=== PATIENT | female | born 1955 | race Caucasian/White ===

== ENCOUNTER → 2018-07-29 11:54 | Outpatient (CLI) | payer BC, SELFPAY ==
[2018-07-29 12:23] LABS: Absolute Lymphocyte Count 1.27 X10^3/ul (0.83-4.51); Absolute Neutrophil Count 3.3 X10^3/uL (2.0-7.7); Basophil# 0.03 X10^3/uL; Basophil% 0.5 % (0-1); Eosinophil# 0.08 X10^3/uL; Eosinophils% 1.4 % (0-5); Hematocrit 40.5 % (37-47); Hemoglobin 13.3 g/dl (12.0-15.0); Lymphocyte # 1.27 X10^3/ul (4.0); Lymphocyte % 22.9 % (19-41); Mean Corp Hgb Conc 32.8 g/gl (32-36); Mean Corpuscular Hgb 30.2 pg (27.0-32.0); Mean Corpuscular Volume 91.8 fL (81-99); Mean Platelet Vol. 10.9 fl (6.2-12.0); Monocyte# 0.88 X10^3/uL; Monocyte% 15.9 % (0-10); Neutrophil # 3.28 X10^3/uL (2.7-7.7); Neutrophil % 59.3 % (47-70); Platelet Count 231 K/mm3 (150-450); RBC Distribution Width CV 13.1 % (11.6-14.6); RBC Distribution Width SD 43.2 fl (35.1-43.9); Red Blood Count 4.41 M/mm3 (4.2-5.4); White Blood Count 5.5 K/mm3 (4.4-11.0)
[2018-07-29 12:24] LABS: POSITIVE COUNT NO; POSITIVE DIFFERENTIAL NO; POSITIVE MORPHOLOGY NO
[2018-07-29 12:45] LABS: AST(SGOT) 17 U/L (15-37); Alanine Aminotransfer ALT/SGPT 25 U/L (13-56); Alkaline Phosphatase 56 U/L (45-117)
--- NOTE | 2018-07-29 12:48 | BI_ITS ---
MAMMOGRAPHY - BILATERAL SCREENING REASON FOR EXAM: Female, 63 years old. Routine annual screening examination. PERTINENT HISTORY: Non-contributory. TECHNIQUE: Digital bilateral breast carl (3D mammographic acquisition) in the CC and MLO projections. 2-D mediolateral oblique (MLO) and craniocaudad (CC) views of both breasts were obtained. CAD: Full Field Digital Mammography with Computer Added Detection was performed. COMPARISON: Comparison is made with prior study dated May 20, 2017 and May 15, 2016. FINDINGS: Breast Composition: There are scattered areas of fibroglandular density. There are no dominant masses or suspicious calcifications. No other significant abnormalities are identified. There has been no significant change since the prior study. BI/SCREENING MAMM (CAD), BILAT IMPRESSION: Stable bilateral screening mammogram. Yearly follow-up mammogram recommended. (A) ASSESSMENT CATEGORY: BIRADS Category 1: Negative. A letter regarding these results will be sent to the patient by the facility within 30 days. Approximately 10% of breast cancers are not detected by mammography. A normal mammogram should not delay biopsy of a clinically suspicious abnormality. [id number] Electronically Signed: Honorio Ybarra MD at 14:18 EDT Tel [phone], Service support ,
== END ==
PROVIDERS: Family Provider Nurse Practitioner; PCP Nurse Practitioner; Referring Provider Specialist; Visit Provider Specialist
DX: G35 Multiple sclerosis (principal); Z12.31 Encounter for screening mammogram for malignant neoplasm of breast
CPT/HCPCS: 36415; 77063; 77067; 80076; 85025

== ENCOUNTER → 2018-08-13 12:02 | Outpatient (CLI) | payer BC, SELFPAY ==
--- NOTE | 2018-08-13 12:04 | RAD_ITS ---
STUDY: X-RAY - PELVIS AND RIGHT HIP REASON FOR EXAM: Female, 63 years old. Right hip pain status post fall. TECHNIQUE: Radiological exam, hip, unilateral, with pelvis when performed; 2 or 3 views. COMPARISON: None. FINDINGS: Alignment is anatomic. There is no acute fracture lucency or cortical step-off. There is no periostitis or periosteal reaction. There is no plain film evident soft tissue mass. There is mild, multifocal osteoarthritis. Mineralization otherwise appears unremarkable for age. RAD/HIP, UNI W/ Pelvis 2-3 Views IMPRESSION: There is no plain film evident acute osseous abnormality. Mild multifocal osteoarthritis. Electronically Signed: Young Quick MD at 12:26 EDT , Service support ,
== END ==
PROVIDERS: Family Provider Nurse Practitioner; PCP Nurse Practitioner; Referring Provider Nurse Practitioner Gerontology; Visit Provider Nurse Practitioner Gerontology
DX: M25.551 Pain in right hip (principal)
CPT/HCPCS: 73502

== ENCOUNTER → 2019-01-26 11:58 | Outpatient (CLI) | payer MEDICARE, BC, SELFPAY ==
[2019-01-26 13:54] LABS: AST(SGOT) 19 U/L (15-37); Alanine Aminotransfer ALT/SGPT 23 U/L (13-56); Alkaline Phosphatase 54 U/L (45-117); Bilirubin, Direct 0.13 mg/dL (0.00-0.30); Globulin 2.8 g/dL (2.2-4.2); Protein, Total 6.8 g/dL (6.4-8.2)
[2019-01-26 14:02] LABS: Absolute Neutrophil Count 4.3 X10^3/uL (2.0-7.7); Basophil# 0.02 X10^3/uL; Basophil% 0.3 % (0-1); Eosinophil# 0.06 X10^3/uL; Hematocrit 40.8 % (37-47); Hemoglobin 13.1 g/dl (12.0-15.0); Lymphocyte % 17.6 % (19-41); Mean Corp Hgb Conc 32.1 g/gl (32-36); Mean Corpuscular Volume 93.4 fL (81-99); Mean Platelet Vol. 11.5 fl (6.2-12.0); Monocyte# 0.78 X10^3/uL; Monocyte% 12.5 % (0-10); Neutrophil # 4.28 X10^3/uL (2.7-7.7); Neutrophil % 68.4 % (47-70); Platelet Count 230 K/mm3 (150-450); RBC Distribution Width CV 13.2 % (11.6-14.6); RBC Distribution Width SD 43.9 fl (35.1-43.9); Red Blood Count 4.37 M/mm3 (4.2-5.4); White Blood Count 6.3 K/mm3 (4.4-11.0)
[2019-01-26 14:07] LABS: POSITIVE COUNT NO; POSITIVE DIFFERENTIAL NO; POSITIVE MORPHOLOGY NO
== END ==
PROVIDERS: Family Provider Nurse Practitioner; PCP Nurse Practitioner; Referring Provider Psychiatry & Neurology Neurology; Visit Provider Psychiatry & Neurology Neurology
DX: G35 Multiple sclerosis (principal)
CPT/HCPCS: 36415; 80076; 85025

== ENCOUNTER → 2019-07-21 | Outpatient (CLI) | payer MEDICARE, BC, SELFPAY ==
[2019-07-21 10:42] LABS: Absolute Lymphocyte Count 0.73 X10^3/uL (0.83-4.51); Basophil# 0.04 X10^3/uL; Basophil% 0.6 % (0-1); Eosinophil# 0.07 X10^3/uL; Eosinophils% 1.1 % (0-5); Hematocrit 39.6 % (37-47); Hemoglobin 12.7 g/dL (12.0-15.0); Lymphocyte # 0.73 X10^3/ul (4.0); Mean Corp Hgb Conc 32.1 g/dL (32-36); Mean Corpuscular Hgb 29.7 pg (27.0-32.0); Mean Corpuscular Volume 92.5 fL (81-99); Mean Platelet Vol. 10.6 fl (6.2-12.0); Monocyte# 0.81 X10^3/uL; Monocyte% 12.2 % (0-10); NRBC Flagged by Analyzer 0 % (0-5); Neutrophil # 4.97 X10^3/uL (2.7-7.7); Neutrophil % 74.8 % (47-70); Platelet Count 201 K/mm3 (150-450); RBC Distribution Width CV 12.8 % (11.6-14.6); RBC Distribution Width SD 43.7 fl (35.1-43.9); Red Blood Count 4.28 M/mm3 (4.2-5.4); White Blood Count 6.6 K/mm3 (4.4-11.0)
[2019-07-21 11:03] LABS: AST(SGOT) 18 U/L (15-37); Alanine Aminotransfer ALT/SGPT 20 U/L (13-56); Albumin, Serum 3.8 g/dL (3.2-5.0); Alkaline Phosphatase 53 U/L (45-117); Bilirubin, Direct 0.11 mg/dL (0.00-0.30); Globulin 2.9 g/dL (2.2-4.2); Protein, Total 6.7 g/dL (6.4-8.2)
== END | disposition home or self-care (01) ==
LOC: LAB 09:59
PROVIDERS: Family Provider Nurse Practitioner; PCP Nurse Practitioner; Referring Provider Psychiatry & Neurology Neurology; Visit Provider Psychiatry & Neurology Neurology
DX: G35 Multiple sclerosis (principal)
CPT/HCPCS: 36415; 80076; 85025

== ENCOUNTER → 2019-08-02 | Outpatient (CLI) | payer MEDICARE, BC, SELFPAY ==
--- NOTE | 2019-08-02 12:08 | BI_ITS ---
MAMMOGRAPHY - BILATERAL SCREENING REASON FOR EXAM: Female, 64 years old. Routine annual screening examination. PERTINENT HISTORY: Non-contributory. TECHNIQUE: Digital bilateral breast jewels (3D mammographic acquisition) in the CC and MLO projections. 2-D mediolateral oblique (MLO) and craniocaudad (CC) views of both breasts were obtained. CAD: Full Field Digital Mammography with Computer Added Detection was performed. COMPARISON: Comparison is made with prior study dated July 29, 2018 and May 20, 2017. FINDINGS: Breast Composition: The breasts are heterogeneously dense, which may obscure small masses. There are no dominant masses or suspicious calcifications. No other significant abnormalities are identified. There has been no significant change since the prior study. BI/SCREEN MAMM (CAD) W/JEWELS BILAT IMPRESSION: Stable bilateral screening mammogram. Yearly follow-up mammogram recommended. (A) ASSESSMENT CATEGORY: BIRADS Category 1: Negative. A letter regarding these results will be sent to the patient by the facility within 30 days. Approximately 10% of breast cancers are not detected by mammography. A normal mammogram should not delay biopsy of a clinically suspicious abnormality. [id number] Electronically Signed: Honorio Ybarra, at 13:40 EDT , Service support ,
== END | disposition home or self-care (01) ==
LOC: OPBI 12:06
PROVIDERS: Family Provider Nurse Practitioner; PCP Nurse Practitioner; Referring Provider Specialist; Visit Provider Specialist
DX: Z12.31 Encounter for screening mammogram for malignant neoplasm of breast (principal)
CPT/HCPCS: 77063; 77067

== ENCOUNTER → 2019-08-17 | Outpatient (CLI) | payer MEDICARE, BC, SELFPAY ==
--- NOTE | 2019-08-17 10:23 | BD_ITS ---
STUDY: DUAL ENERGY X-RAY ABSORPTIOMETRY / DXA REASON FOR EXAM: Female, 64 years old. The patient is postmenopausal. No loss of height. TECHNIQUE: Bone Mineral Density (BMD) measurements of lumbar spine and bilateral hips were obtained. COMPARISON: Comparison is made with prior study dated May 15, 2016. FINDINGS: Lumbar Spine (L1-L4): g/cm2 (0.901) / T-score (-2.3) / Z-score (0.9) Findings are suggestive of osteopenia with a high fracture risk. Left Femur Total: g/cm2 (0.623) / T-score (-3.0) / Z-score (-2.0) Left Femoral Neck: g/cm2 (0.666) / T-score (-2.7) / Z-score (-1.3) Right Femur Total: g/cm2 (0.601) / T-score (-3.2) / Z-score (-2.1) Right Femoral Neck: g/cm2 (0.675) / T-score (-2.6) / Z-score (-1.2) The T-Scores on the most recent prior examination were: Lumbar Spine (L1-L4): There has been worsening of bone density since the previous examination. Left Femur Total: which represents a worsening of 7.7%. Right Femur Total: which represents a worsening of 14.8%. BD/Dexa Bone Density Study IMPRESSION: The patient is considered osteoporotic as outlined below according to World [place] Organization (WHO) criteria with a high fracture risk. There has been worsening of bone density since the previous examination. Reference Information: The T-score is the number of standard deviations above or below the standard which is normal for young adults at their peak bone mineral density. The World Health Organization (WHO) interprets the T-scores as follows: Above -1 Normal bone density Between -1 and -2.5 Osteopenia Equal to / or below -2.5 Osteoporosis As a practical clinical guideline, osteopenia may be graded as follows: Mild -1 through -1.5 Moderate -1.6 through -2.0 Severe -2.1 through -2.4 The Z-score is the number of standard deviations above or below age-matched controls. A Z-score of less than -1.5 would be considered abnormal. References: 1. NIH Osteoporosis and Related Bone Diseases http://www.osteo.org 2. International Society for Clinical Densitometry http://www.iscd.org 3. National Osteoporosis Foundation http://www.nof.org Electronically Signed: Honorio Ybarra, at 9:38 EDT , Service support ,
== END | disposition home or self-care (01) ==
LOC: OPBD 10:18
PROVIDERS: Family Provider Nurse Practitioner; PCP Nurse Practitioner; Referring Provider Nurse Practitioner; Visit Provider Nurse Practitioner
DX: Z78.0 Asymptomatic menopausal state (principal)
CPT/HCPCS: 77080

== ENCOUNTER 2020-01-07 19:40 | Inpatient (IN) | payer MEDICARE, BC, SELFPAY ==
[2020-01-07 19:43] VITALS: BP 113/63; PULSE 115; RESP 16; TEMP 37.4; O2SAT 93; BMI 21.0
[2020-01-07 20:21] LABS: Absolute Lymphocyte Count 0.35 X10^3/uL (0.83-4.51); Basophil# 0.01 X10^3/uL; Basophil% 0.1 % (0-1); Hematocrit 40.8 % (37-47); Hemoglobin 13.5 g/dL (12.0-15.0); Lymphocyte # 0.35 X10^3/ul (4.0); Lymphocyte % 3.4 % (19-41); Mean Corp Hgb Conc 33.1 g/dL (32-36); Mean Corpuscular Hgb 29.5 pg (27.0-32.0); Mean Corpuscular Volume 89.3 fL (81-99); Mean Platelet Vol. 10.1 fl (6.2-12.0); Monocyte# 0.85 X10^3/uL; Monocyte% 8.3 % (0-10); NRBC Flagged by Analyzer 0 % (0-5); Neutrophil % 87.9 % (47-70); POSITIVE DIFFERENTIAL YES; POSITIVE MORPHOLOGY YES; Platelet Count 299 K/mm3 (150-450); RBC Distribution Width CV 13.2 % (11.6-14.6); RBC Distribution Width SD 42.7 fl (35.1-43.9); Red Blood Count 4.57 M/mm3 (4.2-5.4); White Blood Count 10.2 K/mm3 (4.4-11.0)
[2020-01-07 20:27] LABS: Differential Indicated SCAN CRITERIA MET
[2020-01-07 20:35] LABS: Anion Gap 4 (5-15); BUN 15 mg/dL (7-18); BUN/Creat Ratio 21.1 RATIO (10-20); Calcium,Total 8.9 mg/dL (8.5-10.1); Chloride 106 mmol/L (98-107); Creatinine, Serum 0.71 mg/dL (0.55-1.02); EST Glomerular Filtration Rate 88 mL/min (>60); Est Glom Filt Rate - Afr Amer 107 mL/min (>60); Estimated Creatinine Clearance 64.14 ml/min; Glucose 129 mg/dL (74-106); Potassium 3.8 mmol/L (3.5-5.1); Sodium Level 137 mmol/L (136-145)
[2020-01-07 20:36] LABS: Internal QC Validated? YES +Cl - CLEAR BKGD; Pregnancy, Serum, hCG Quali. NEGATIVE Negative
[2020-01-07 20:47] LABS: Anisocytosis RARE; Macrocytosis RARE; Platelet Estimate ADEQUATE (ADEQ); Red Cell Morphology N CHROM NORMAL (NORM C&C)
--- NOTE | 2020-01-07 20:48 | CT_ITS ---
We are attempting to reach an attending provider to discuss findings. An addendum with communication details will be sent when the communication is complete. HISTORY: FLU LIKE SYMPTOMS X 2 WEEKS, LETHARGY, FEVER, ABD PAIN. Hx of MS and HLD TECHNIQUE: Helically acquired images were obtained of the abdomen and pelvis following the intravenous administration of ml of Gastrografin Tamp; 100mL Isovue-300 Iodinated contrast. 2D reformats. Oral contrast was administered. A radiation dose optimization technique was used for this scan. COMPARISON: An x-ray of the pelvis from August 13, 2018 FINDINGS: # of images incl. paperwork: [id number] LUNG BASES: Minimal dependent atelectasis CT abdomen: Bones are unremarkable. The gallbladder the gallbladder is somewhat distended. The suprapancreatic portion of the common bile duct I measure at 7 mm in diameter. It remains that diameter within the pancreatic head before narrowing conically to the papilla. No intrahepatic biliary ductal dilatation is perceived. Liver, spleen, pancreas, and adrenal glands, are normal. Tiny hypodense areas within both kidneys statistically represent benign cysts. No hydronephrosis. The aorta is diseased with calcific atherosclerotic plaque, but without aneurysm or dissection. CT pelvis: Pelvic ascites is present. The uterus is not identified, and may have been resected. The appendix is not definitively identified, but may be present on series 2 image 72 with surrounding indurated fat. It is not, however, pathologically thickened. . The bladder is somewhat decompressed. Diverticulosis is present within the descending and sigmoid colon. There is bowel wall thickening and induration to the surrounding fat. CT/Abdomen/Pelvis WITH Contrast IMPRESSION: Pelvic free fluid with indurated fat surrounding the sigmoid colon. This likely represents acute perforated diverticulitis with a small abscess in the left hemipelvis. The possibility of a colonic malignancy having cause erosion through the wall with a small abscess adjacent to the lateral wall of the sigmoid colon in the left hemipelvis is also within the differential. The free fluid and free gas adjacent to the sigmoid colon is not clearly defined as a rim enhancing abscess, however, the area of fluid and gas adjacent to the inflamed sigmoid colon within the left hemipelvis measures 1.8 x 2.9 cm. Individualized dose optimization techniques were used for this CT. at 2310 Reported and signed by: Dangelo Sawant MD Electronically Signed: Dangelo Sawant MD at 23:09 EST Tel , Service support ,
[2020-01-07 21:06] VITALS: RESP 16
[2020-01-07 21:13] LABS: Mucous, Urine 0 SEEN /hpf (<or=2+); Red Blood Cells-Urine 0 SEEN /hpf (0-5); Squamous Epithelial Cells - UA 0 SEEN /hpf (5-10)
[2020-01-07] MEDS: Ondansetron 4 MG/2 ML Vial IV (21:22)
[2020-01-07 21:27] LABS: Color, Urine Yellow (Yellow); Glucose, Dipstick Normal (Normal); Ketone-Dipstick 5 mg/dl (Negative); Leukocyte Esterase-Dipstick 25 /ul (Negative); Nitrite-Dipstick Positive (Negative); Occult Blood-Urine Negative /ul (Negative); Protein-Dipstick Negative (Negative); Urine Bilirubin Dipstick Negative (Negative); Urine Clarity Sl. Cloudy (Clear); Urine Urobilinogen Normal (Normal)
[2020-01-07 21:40] LABS: Bacteria 4+ /hpf (None Seen); White Blood Cells 0-5 SEEN /hpf (0-5)
--- NOTE | 2020-01-07 23:37 | ED.VISSUMM ---
- ER Visit Summary Date of Service: 01/07/20 Chief Complaint: Abdominal pain History of Present Illness: The patient is a 64 F who presents with abdominal pain and nausea that began today. Patient states the pain began rather suddenly. Patient states the pain is sharp. Patient states the pain is diffuse across her abdomen but is worse in the left lower quadrant. Patient is nothing makes it better or worse. Patient admits to nausea but denies any vomiting. Patient admits to some constipation. Patient admits to a fever of 102 at home. Patient denies any hematemesis or coffee-ground emesis. Patient denies any melena or hematochezia. Patient denies any chest pain or shortness of breath. Physical Examination: Vital signs are stable except for mild tachycardia of 115. Patient is afebrile here. Patient is in no acute distress. Oral mucosa is pink and moist. Neck is supple. Trachea is midline. There is no JVD. Heart was regular rate and rhythm. Lungs are clear and equal bilateral. Abdomen is soft. Bowel sounds are normal. There is diffuse tenderness but worse in the left lower quadrant. There is no rebound or guarding noted. Cranial nerves II through XII are intact. There are no focal motor or sensory deficits noted. Test Results: CBC and basic metabolic profile were obtained and were within normal limits. Urinalysis shows positive nitrates and 4+ bacteria but no other signs of urinary tract infection. CT scan of the abdomen pelvis was obtained. There is perforated diverticulitis however there is a possibility of colonic malignancy causing a perforation as well. There is abscess adjacent to the perforation. This was interpreted by the radiologist. Emergency Department Course and Treatment: Patient was given IV fluids, Zofran, and morphine. Patient was advised of her findings. Case was discussed with Dr. Oshea. He will review the CT scan. He was in to evaluate the patient. He will admit the patient to his service. Patient was given a dose of Zosyn here in the emergency department. Patient and family understand and are agreeable with the plan. All questions were answered. Disposition: Admit to hospital Impression: Perforated diverticulitis This note was generated with [employer] dictation software. It may contain incorrect words, spelling, and punctuation that were not noted in review of the chart prior to signing ED Disposition - Plan for ED Patient: Disposition: Acute Care Hospital [facility] Diagnosis: Perforation of sigmoid colon due to diverticulitis Referrals: Laura Mcnamara NP-C [Primary Care Provider] -
[2020-01-08] VITALS (13 sets, daily range): BP systolic 106–137; BP diastolic 56–71; PULSE 81–99; RESP 16–18; TEMP 36.9–37.7; O2SAT 92–99; BMI 21.2; BMI 21.3
[2020-01-08] MEDS: Morphine 4 MG/ML Syringe IV (00:04)
--- NOTE | 2020-01-08 00:04 | HP.PCM_ITS ---
Problem List (1) Perforation of sigmoid colon due to diverticulitis Status: Acute History of Present Illness Date of Admission: 01/08/20 The patient is a 64 year old F who presents with pain since this morning. She reports nausea but no vomiting. Pain is in the lower abdomen. No fevers or chills. She is not passing flatus at this time. Past Medical History Allergies No Known Allergies Allergy (Verified 01/07/20 19:42) Home Medications: Ambulatory Orders Medication Instructions Recorded Rosuvastatin Calcium [Crestor] 0.5 tab PO QODAY 01/07/20 Teriflunomide [Aubagio] 14 mg PO DAILY 01/07/20 Surgical History: hysterectomy Smoking Status: Former smoker - *Family History Maternal History Items: No pertinent history Review of Systems Constitutional: Denies: Anorexia, Fever HEENT: Denies: Difficulty Swallowing Cardiovascular: Denies: Chest Pain Respiratory: Denies: Cough, Shortness of Breath Gastrointestinal: Reports: Abdominal Pain, Nausea. 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 Denies: Joint Tenderness Skin: Denies: Jaundice Neurological: Reports: Focal weakness Hematologic/ Lymphatic: Denies: Anemia VTE Information - Inpt Only VTE Present on Admission: No VTE Mechan Device Prophylaxis: SCD's Patient Problems: Active and Suspected Problems Perforation of sigmoid colon due to diverticulitis (Acute) - Physical Exam Vitals/I&O's: Vital Signs Temp Pulse Resp BP Pulse Ox 99.4 F H 115 H 16 113/63 93 01/07/20 19:43 01/07/20 19:43 01/07/20 21:06 01/07/20 19:43 01/07/20 19:43 Oxygen Delivery Method Room Air Weight: 115 lb Body Mass Index (BMI) 21.0 General: Alert, Oriented x3 Neck: No JVD Lungs: Normal air movement Cardiovascular: Regular Rhythm, Tachycardic Abdomen: Soft, Non-Distended, Tender - Tender in the lower abdomen, no guarding or rebound Extremities: No clubbing Skin: No breakdown Neurological: Cranial nerves II-XII grossly intact Psych/Mental Status: Normal Affect Laboratory Results 01/07/20 20:06: WBC 10.2, RBC 4.57, Hgb 13.5, Hct 40.8, MCV 89.3, MCH 29.5, MCHC 33.1, RDW Std Deviation 42.7, RDW Coeff of Ana Paula 13.2, Plt Count 299, MPV 10.1, Immature Gran % (Auto) 0.300, Neut % (Auto) 87.9 H, Lymph % (Auto) 3.4 L, [place] % (Auto) 8.3, Eos % (Auto) 0.0, Baso % (Auto) 0.1, Absolute Neuts (auto) 9.0 H, Absolute Lymphs (auto) 0.35 L, Nucleated RBC % 0, Differential Comment SEE COMMENT, Platelet Estimate ADEQUATE, RBC Morphology N CHROM, Anisocytosis RARE, Macrocytosis RARE 01/07/20 20:06: Sodium 137, Potassium 3.8, Chloride 106, Carbon Dioxide 27.0, Anion Gap 4 L, BUN 15, Creatinine 0.71, Estim Creat Clear Calc 64.14, Est GFR (MDRD) Af Amer 107, Est GFR (MDRD) Non-Af 88, BUN/Creatinine Ratio 21.1 H, Glucose 129 H, Calcium 8.9 01/07/20 20:06: Serum , Qual NEGATIVE 01/07/20 21:05: Urine Color Yellow, Urine Clarity Sl. Cloudy, Urine pH 6.0, Ur Specific [place] 1.010, Urine Protein Negative, Urine Glucose (UA) Normal, Urine Ketones 5 H, Urine Occult Blood Negative, Urine Nitrite Positive H, Urine Bilirubin Negative, Urine Urobilinogen Normal, Ur Leukocyte Esterase 25 H, Urine RBC 0 SEEN, Urine WBC 0-5 SEEN, Ur Squamous Epith Cells 0 SEEN, Urine Bacteria 4+, Urine Mucus 0 SEEN Clinical Impression(s) from Imaging Studies Abdomen/Pelvis CT 01/07/20 20:48 IMPRESSION: Pelvic free fluid with indurated fat surrounding the sigmoid colon. This likely represents acute perforated diverticulitis with a small abscess in the left hemipelvis. The possibility of a colonic malignancy having cause erosion through the wall with a small abscess adjacent to the lateral wall of the sigmoid colon in the left hemipelvis is also within the differential. The free fluid and free gas adjacent to the sigmoid colon is not clearly defined as a rim enhancing abscess, however, the area of fluid and gas adjacent to the inflamed sigmoid colon within the left hemipelvis measures 1.8 x 2.9 cm. Individualized dose optimization techniques were used for this CT. at 2310 Reported and signed by: Dangelo Sawant MD Electronically Signed: Dangelo Sawant MD at 23:09 EST Tel , Service support , ADDENDUM: 01/07/20 2323 IMPRESSION: Pelvic free fluid with indurated fat surrounding the sigmoid colon. This likely represents acute perforated diverticulitis with a small abscess in the left hemipelvis. The possibility of a colonic malignancy having cause erosion through the wall with a small abscess adjacent to the lateral wall of the sigmoid colon in the left hemipelvis is also within the differential. The free fluid and free gas adjacent to the sigmoid colon is not clearly defined as a rim enhancing abscess, however, the area of fluid and gas adjacent to the inflamed sigmoid colon within the left hemipelvis measures 1.8 x 2.9 cm. Individualized dose optimization techniques were used for this CT. at 2310 Reported and signed by: Dangelo Sawant MD N.B. : The above information has been verbally conveyed by Dangelo Sawant MD to Nelson James DO on 01/07/2020 23:16:14 (ET). Electronically Signed: Dangelo Sawant MD at 23:09 EST Tel , Service support , Current Medications Piperacillin Sod/Tazobactam (Sod 3.375 gm/ Sodium Chloride) 50 mls @ 100 mls/hr IV X1 ONE Stop: 01/08/20 00:14 Assessment/Plan All Active Problems Perforation of sigmoid colon due to diverticulitis (Acute) 64-year-old female with diverticulitis with possible perforation and abscess 1. The patient says she is been having pain today. She reports the pain is lower abdomen. She is having nausea but no vomiting. I reviewed her CT scan with her. She has a normal white count with a left shift. CT scan shows inflammation around the sigmoid colon with possible perforation and small abscess. There is no free air in the abdomen. 2. Currently the patient is not having peritoneal signs. Her vital signs are within normal limits except for mild tachycardia. Her blood pressure is normal and she is oxygenating well. She is not having any guarding or rebound at this time. I discussed surgery versus conservative management with her as well. I discussed that if I took her to surgery she would likely require end colostomy. Given the fact that the abscess is quite small I will try conservative management first. My goal would be to treat her with IV antibiotics and bowel rest initially in order to perform a colonoscopy after resolution as well as an elective laparoscopic sigmoid colectomy in the near future. Her last colonoscopy was about 6 years ago and was normal besides diverticulosis. 3. I will admitted to the floor on IV antibiotics and telemetry. If her pain changes and worsens or her vital signs shifted I will I will take her for emergency sigmoid colectomy with likely colostomy. The patient understands the risks of conservative treatment and would like to attempt this to avoid colostomy or emergency surgery. I believe this is prudent given the fact that she is not having peritoneal signs and her vitals are stable. If there is any deterioration I will repeat a CT scan or take her for emergency surgery. Alejandro Oshea MD Pager: [facility] [address] [place] [address], [address] [place] [address] Office:
[2020-01-08] MEDS: Lactated Ringers 1,000 ML 100 ML IV ×2 (01:26→12:09)
[2020-01-08 06:32] LABS: Absolute Lymphocyte Count 0.93 X10^3/uL (0.83-4.51); Absolute Neutrophil Count 11.5 X10^3/uL (2.0-7.7); Basophil# 0.02 X10^3/uL; Basophil% 0.1 % (0-1); Eosinophil# 0.32 X10^3/uL; Eosinophils% 2.3 % (0-5); Hematocrit 35.3 % (37-47); Hemoglobin 11.4 g/dL (12.0-15.0); Lymphocyte # 0.93 X10^3/ul (4.0); Lymphocyte % 6.6 % (19-41); Mean Corp Hgb Conc 32.3 g/dL (32-36); Mean Corpuscular Hgb 28.7 pg (27.0-32.0); Mean Corpuscular Volume 88.9 fL (81-99); Mean Platelet Vol. 10.7 fl (6.2-12.0); Monocyte# 1.27 X10^3/uL; NRBC Flagged by Analyzer 0 % (0-5); Neutrophil # 11.45 X10^3/uL (2.7-7.7); Neutrophil % 81.6 % (47-70); Platelet Count 267 K/mm3 (150-450); RBC Distribution Width CV 13.3 % (11.6-14.6); RBC Distribution Width SD 43.5 fl (35.1-43.9); Red Blood Count 3.97 M/mm3 (4.2-5.4); White Blood Count 14.1 K/mm3 (4.4-11.0)
[2020-01-08 06:52] LABS: Anion Gap 7 (5-15); BUN 17 mg/dL (7-18); BUN/Creat Ratio 23.2 RATIO (10-20); Calcium,Total 7.8 mg/dL (8.5-10.1); Chloride 104 mmol/L (98-107); Creatinine, Serum 0.73 mg/dL (0.55-1.02); EST Glomerular Filtration Rate 85 mL/min (>60); Est Glom Filt Rate - Afr Amer 103 mL/min (>60); Estimated Creatinine Clearance 62.39 ml/min; Glucose 123 mg/dL (74-106); Potassium 3.6 mmol/L (3.5-5.1); Sodium Level 137 mmol/L (136-145)
[2020-01-08] MEDS: Morphine 2 MG/ML Syringe IV (06:52)
[2020-01-08] MEDS: 0.9% Saline Lock 10 ML Syringe IV (06:59)
--- NOTE | 2020-01-08 07:50 | PN.SURG_ITS ---
Patient Problems: Active and Suspected Problems Perforation of sigmoid colon due to diverticulitis (Acute) Subjective: Patient reports she is improved from yesterday. She only has abdominal pain when moving. She is not passing any flatus yet. No nausea or vomiting. - Physical Exam Vitals/I&O's: Vital Signs Temp Pulse Resp BP Pulse Ox 98.4 F 89 18 106/65 94 01/08/20 02:44 01/08/20 05:19 01/08/20 02:44 01/08/20 02:44 01/08/20 02:44 Oxygen Flow Rate (L/min) 2 Oxygen Delivery Method Room Air Weight: 116 lb 6.465 oz Body Mass Index (BMI) 21.2 Intake and Output for Last 24 Hours 01/06/20 01/07/20 01/08/20 23:59 23:59 23:59 Intake Total 50 / 50 Balance 50 / 50 General: Alert, Oriented x3, Cooperative Lungs: Normal air movement Cardiovascular: Regular rate, Regular Rhythm Abdomen: Soft, Non-Distended, Tender Laboratory Results 01/07/20 20:06: WBC 10.2, RBC 4.57, Hgb 13.5, Hct 40.8, MCV 89.3, MCH 29.5, MCHC 33.1, RDW Std Deviation 42.7, RDW Coeff of Ana Paula 13.2, Plt Count 299, MPV 10.1, Immature Gran % (Auto) 0.300, Neut % (Auto) 87.9 H, Lymph % (Auto) 3.4 L, [place] % (Auto) 8.3, Eos % (Auto) 0.0, Baso % (Auto) 0.1, Absolute Neuts (auto) 9.0 H, Absolute Lymphs (auto) 0.35 L, Nucleated RBC % 0, Differential Comment SEE COMMENT, Platelet Estimate ADEQUATE, RBC Morphology N CHROM, Anisocytosis RARE, Macrocytosis RARE 01/07/20 20:06: Sodium 137, Potassium 3.8, Chloride 106, Carbon Dioxide 27.0, Anion Gap 4 L, BUN 15, Creatinine 0.71, Estim Creat Clear Calc 64.14, Est GFR (MDRD) Af Amer 107, Est GFR (MDRD) Non-Af 88, BUN/Creatinine Ratio 21.1 H, Glucose 129 H, Calcium 8.9 01/07/20 20:06: Serum , Qual NEGATIVE 01/07/20 21:05: Urine Color Yellow, Urine Clarity Sl. Cloudy, Urine pH 6.0, Ur Specific [place] 1.010, Urine Protein Negative, Urine Glucose (UA) Normal, Urine Ketones 5 H, Urine Occult Blood Negative, Urine Nitrite Positive H, Urine Bilirubin Negative, Urine Urobilinogen Normal, Ur Leukocyte Esterase 25 H, Urine RBC 0 SEEN, Urine WBC 0-5 SEEN, Ur Squamous Epith Cells 0 SEEN, Urine Bacteria 4+, Urine Mucus 0 SEEN 01/08/20 05:48: WBC 14.1 H, RBC 3.97 L, Hgb 11.4 L, Hct 35.3 L, MCV 88.9, MCH 28.7, MCHC 32.3, RDW Std Deviation 43.5, RDW Coeff of Ana Paula 13.3, Plt Count 267, MPV 10.7, Immature Gran % (Auto) 0.400, Neut % (Auto) 81.6 H, Lymph % (Auto) 6.6 L, [place] % (Auto) 9.0, Eos % (Auto) 2.3, Baso % (Auto) 0.1, Absolute Neuts (auto) 11.5 H, Absolute Lymphs (auto) 0.93, Nucleated RBC % 0 01/08/20 05:48: Sodium 137, Potassium 3.6, Chloride 104, Carbon Dioxide 26.0, Anion Gap 7, BUN 17, Creatinine 0.73, Estim Creat Clear Calc 62.39, Est GFR ( RD) Af Amer 103, Est GFR (MDRD) Non-Af 85, BUN/Creatinine Ratio 23.2 H, Glucose 123 H, Calcium 7.8 L Current Medications Acetaminophen (Tylenol) 650 mg PO Q4H PRN PRN PRN Reason: Pain (-08/12) or Fever Lactated Ringer's () 1,000 mls @ 100 mls/hr IV .Q10H [facility] Last Admin: 01/08/20 01:26 Dose: 100 mls/hr Documented by: Piperacillin Sod/Tazobactam (Sod 3.375 gm/ Sodium Chloride) 50 mls @ 12.5 mls/hr IV Q8 [facility] Last Admin: 01/08/20 06:49 Dose: 12.5 mls/hr Documented by: Morphine Sulfate () 2 - 4 mg IV Q2H PRN PRN PRN Reason: Pain Score 4-10/10 Last Admin: 01/08/20 06:52 Dose: 2 mg Documented by: Morphine Sulfate () 2 - 4 mg IV Q2H PRN PRN PRN Reason: Pain Score 4-10/10 Ondansetron HCl (Zofran) 4 mg IV Q6H PRN PRN PRN Reason: NAUSEA Sodium Chloride () 10 - 40 ml IV UD PRN PRN Reason: SALINE FLUSH Last Admin: 01/08/20 06:59 Dose: 10 ml Documented by: Medical Necessity - Tobacco Use Smoking Status: Former smoker Tobacco Use: Cigarettes Assessment/Plan All Active Problems Perforation of sigmoid colon due to diverticulitis (Acute) 64-year-old female with perforated diverticulitis with small abscess 1. The patient reports improvement. Her vitals are stable with no signs of sepsis. Her abdomen is soft but tender in the left lower quadrant with palpation. At this time I will continue conservative management with Zosyn and n.p.o. I advised at least another 48 hours n.p.o. status and I will probably recheck a CT scan before starting her on a diet. If there are any changes I will take her to surgery for sigmoid colectomy but she seems to be doing well with conservative treatment. Alejandro Oshea MD Pager: [facility] [address] [place] [address], [address] [place] [address] Office:
[2020-01-08] MEDS: Acetaminophen 325 MG Tablet 650 MG PO (14:32)
--- NOTE | 2020-01-08 15:50 | CM.ED ---
RN CM Assessment Introduced role of RN CM to patient. Patient is alert and able to participate in RN CM Assessment. Care providers, pharmacy, and demographics verified. No family at bedside. Presentation: abd pain Admit Dx: diverticulitis Re-Admit: No Barriers/Issues: None PCP: Anders Specialists: Neuro for her multiple sclerosis. Hers left and she got assigned a new one. Can't remember his name. Located in [place]. Preferred Pharmacy: [facility] Insurance: [facility] [facility] Benefit: Yes. Denies any concerns LNOK: Nehemias LW/HPOA: Yes. DPOA is son Navneet. Agrees to ask him to bring in copy. Living Arrangements: 2 story home with first floor set up. 2 stairs into home with railing. was admitted to hospice about a month ago. ADL?s: she was independent and helped care for her . Transportation: neither her nor drive. depend upon family and friends. Gave the [employer] transportation van information for appts. DME: Mostly for Has walker, w/c and transport chair HHC: None SNF: None Goal: Return Home independent DC PLAN: Home, NN edith Cueva RN, CCM.
[2020-01-08] MEDS: Ondansetron 4 MG/2 ML Vial IV (22:39)
[2020-01-09] VITALS (9 sets, daily range): BP systolic 125–141; BP diastolic 64–75; PULSE 81–94; RESP 16–18; TEMP 36.4–36.8; O2SAT 94–98
[2020-01-09] MEDS: Lactated Ringers 1,000 ML 100 ML IV ×2 (03:47→15:22)
[2020-01-09] MEDS: Acetaminophen 325 MG Tablet 650 MG PO ×2 (03:58→15:23)
[2020-01-09 06:35] LABS: Absolute Lymphocyte Count 0.51 X10^3/uL (0.83-4.51); Absolute Neutrophil Count 14.3 X10^3/uL (2.0-7.7); Basophil# 0.04 X10^3/uL; Basophil% 0.2 % (0-1); Hematocrit 33.7 % (37-47); Hemoglobin 10.5 g/dL (12.0-15.0); Lymphocyte # 0.51 X10^3/ul (4.0); Lymphocyte % 3.1 % (19-41); Mean Corp Hgb Conc 31.2 g/dL (32-36); Mean Corpuscular Hgb 28.1 pg (27.0-32.0); Mean Corpuscular Volume 90.1 fL (81-99); Mean Platelet Vol. 10.6 fl (6.2-12.0); Monocyte# 1.33 X10^3/uL; Monocyte% 8.1 % (0-10); NRBC Flagged by Analyzer 0 % (0-5); Neutrophil # 14.34 X10^3/uL (2.7-7.7); Neutrophil % 87.6 % (47-70); POSITIVE DIFFERENTIAL YES; Platelet Count 252 K/mm3 (150-450); RBC Distribution Width CV 13.2 % (11.6-14.6); RBC Distribution Width SD 43.5 fl (35.1-43.9); Red Blood Count 3.74 M/mm3 (4.2-5.4); White Blood Count 16.4 K/mm3 (4.4-11.0)
[2020-01-09 06:39] LABS: Differential Indicated SCAN CRITERIA MET
[2020-01-09 06:56] LABS: Anion Gap 7 (5-15); BUN 19 mg/dL (7-18); BUN/Creat Ratio 28.5 RATIO (10-20); Calcium,Total 7.9 mg/dL (8.5-10.1); Chloride 105 mmol/L (98-107); Creatinine, Serum 0.67 mg/dL (0.55-1.02); EST Glomerular Filtration Rate 95 mL/min (>60); Est Glom Filt Rate - Afr Amer 115 mL/min (>60); Estimated Creatinine Clearance 67.97 ml/min; Glucose 103 mg/dL (74-106); Potassium 3.2 mmol/L (3.5-5.1); Sodium Level 138 mmol/L (136-145)
--- NOTE | 2020-01-09 07:56 | PN.SURG_ITS ---
Patient Problems: Active and Suspected Problems Perforation of sigmoid colon due to diverticulitis (Acute) Subjective: The patient reports less abdominal pain than even yesterday. She is not having any nausea or vomiting. She is having several bouts of watery diarrhea. - Physical Exam Vitals/I&O's: Vital Signs Temp Pulse Resp BP Pulse Ox 97.8 F 93 16 140/73 H 95 01/09/20 03:54 01/09/20 03:54 01/09/20 03:54 01/09/20 03:54 01/09/20 03:54 Oxygen Flow Rate (L/min) 2 Oxygen Delivery Method Room Air Weight: 116 lb 6.465 oz Body Mass Index (BMI) 21.2 Intake and Output for Last 24 Hours 01/07/20 01/08/20 01/10/20 23:59 23:59 00:59 Intake Total 2384.5 / 2524.5 290 / 290 Balance 2384.5 / 2524.5 290 / 290 General: Alert, Oriented x3 Lungs: Normal air movement Cardiovascular: Regular rate, Regular Rhythm Abdomen: Soft, Non-Distended, Tender - Mild tenderness to deep palpation of the left lower quadrant Laboratory Results 01/09/20 05:28: WBC 16.4 H, RBC 3.74 L, Hgb 10.5 L, Hct 33.7 L, MCV 90.1, MCH 28.1, MCHC 31.2 L, RDW Std Deviation 43.5, RDW Coeff of Ana Paula 13.2, Plt Count 252, MPV 10.6, Immature Gran % (Auto) 1.000 H, Neut % (Auto) 87.6 H, Lymph % (Auto) 3.1 L, [place] % (Auto) 8.1, Eos % (Auto) 0.0, Baso % (Auto) 0.2, Absolute Neuts (auto) 14.3 H, Absolute Lymphs (auto) 0.51 L, Nucleated RBC % 0, Differential Comment 01/09/20 05:28: Sodium 138, Potassium 3.2 L, Chloride 105, Carbon Dioxide 26.0, Anion Gap 7, BUN 19 H, Creatinine 0.67, Estim Creat Clear Calc 67.97, Est GFR (MDRD) Af Amer 115, Est GFR (MDRD) Non-Af 95, BUN/Creatinine Ratio 28.5 H, Glucose 103, Calcium 7.9 L Current Medications Acetaminophen (Tylenol) 650 mg PO Q4H PRN PRN PRN Reason: Pain (1-10/10) or Fever Last Admin: 01/09/20 03:58 Dose: 650 mg Documented by: Enoxaparin Sodium (Lovenox) 40 mg SC DAILY [facility] Lactated Ringer's () 1,000 mls @ 100 mls/hr IV .Q10H [facility] Last Admin: 01/09/20 03:47 Dose: 100 mls/hr Documented by: Piperacillin Sod/Tazobactam (Sod 3.375 gm/ Sodium Chloride) 50 mls @ 12.5 mls/hr IV Q8 [facility] Last Admin: 01/09/20 05:32 Dose: 12.5 mls/hr Documented by: Pantoprazole Sodium 40 mg/ (Sodium Chloride) 110 mls @ 330 mls/hr IV Q24 [facility] Last Infusion: 01/08/20 09:55 Dose: Infused Documented by: Sodium Chloride () 250 mls @ 15 mls/hr IV .[id number] PRN PRN Reason: Saline Flush Sodium Chloride () 250 mls @ 15 mls/hr IV .[id number] PRN PRN Reason: Additional IVPB Infusion Last Infusion: 01/08/20 17:39 Dose: 15 mls/hr Documented by: Morphine Sulfate () 2 - 4 mg IV Q2H PRN PRN PRN Reason: Pain Score 4-10/10 Last Admin: 01/08/20 06:52 Dose: 2 mg Documented by: Morphine Sulfate () 2 - 4 mg IV Q2H PRN PRN PRN Reason: Pain Score 4-10/10 Ondansetron HCl (Zofran) 4 mg IV Q6H PRN PRN PRN Reason: NAUSEA Last Admin: 01/08/20 22:39 Dose: 4 mg Documented by: Sodium Chloride () 10 - 40 ml IV UD PRN PRN Reason: SALINE FLUSH Last Admin: 01/08/20 06:59 Dose: 10 ml Documented by: Medical Necessity - Tobacco Use Smoking Status: Former smoker Tobacco Use: Cigarettes Assessment/Plan All Active Problems Perforation of sigmoid colon due to diverticulitis (Acute) 64-year-old female with perforation of the sigmoid from diverticulitis with small abscess 1. The patient has diverticulitis with a small perforation and abscess. Her pain has been improving day by day but her white count has gone up once more and she is having watery diarrhea. I will check a C. difficile panel. Repeat CT with IV and p.o. contrast in the morning. Continue antibiotics and n.p.o. today. The patient reports improvement in her pain and clinically she is doing better but she has had this new onset diarrhea with increase of white count. Alejandro Oshea MD Pager: [facility] [address] [place] [address], [address] [place] [address] Office:
[2020-01-09] MEDS: Potassium Chloride 10mEq/100mL 10 MEQ/100 ML IV.SOLN. 100 MEQ IV BOLUS (08:36)
[2020-01-09] MEDS: 0.9% Saline Lock 10 ML Syringe IV ×3 (09:23→19:37)
[2020-01-09] MEDS: Potassium Chloride 10mEq/100mL 10 MEQ/100 ML IV.SOLN. 50 MEQ IV BOLUS ×2 (10:59→13:16)
[2020-01-09] MEDS: Enoxaparin 40 MG/0.4 ML Syringe SC (11:12)
--- NOTE | 2020-01-09 16:48 | NURSING ---
This nurse talked to lab and they stated [facility] to run an enteric panal.
[2020-01-09] MEDS: Morphine 4 MG/ML Syringe IV (18:10)
[2020-01-09] MEDS: Morphine 2 MG/ML Syringe IV (18:15)
--- NOTE | 2020-01-09 18:26 | CT_ITS ---
STUDY: CT ABDOMEN AND PELVIS WITHOUT CONTRAST REASON FOR EXAM: Female, 64 years old. Sudden increase in abdominal pain early this evening. Pt admitted to hospital Friday for perforated sigmoid with probable abscess. Pre hysterectomy. RADIATION DOSAGE (If Supplied By Facility): CTDIvol = ( 9.51 ) mGy, DLP = ( 437.78 ) mGycm TECHNIQUE: Transaxial images were obtained from the dome of the diaphragm to the symphysis pubis without oral contrast, and without intravenous contrast. Sagittal and coronal images were reconstructed. Individualized dose optimization techniques were used for this CT. COMPARISON: 01/07/2020 FINDINGS: The visualized lung bases are unremarkable. The visualized portions of the heart are within normal limits. Normal liver. Normal gallbladder and extrahepatic biliary system. Normal spleen. Normal pancreas. Normal bilateral adrenal glands. Normal right kidney. Normal left kidney. Normal visualized stomach. Normal small intestine. There is diverticulosis, with thickening of the colon wall, and pericolonic inflammation changes consistent with acute diverticulitis. No change in the fluid and bubbles of air surrounding the sigmoid colon suggestive of microperforation. Also no change in the small amount of free fluid in the pelvis suggestive of peritonitis. No pneumoperitoneum to suggest macro perforation. The appendix is visualized and appears normal. Normal abdominal aorta. Normal inferior vena cava. Normal retroperitoneum. Normal urinary bladder. Normal abdominal wall. Normal osseous structures. CT/Abdomen/Pelvis W IV Cont ONLY IMPRESSION: No change in sigmoid diverticulitis with microperforation. Electronically Signed: Teddy Herrera MD at 19:45 EDT Tel , Service support ,
--- NOTE | 2020-01-09 18:31 | NURSING ---
Pt stated she got up to go to the bathroom and doubled over in pain. First it was a 8 out of 10 now it is 10 out of 10. Abd slt firm, Bs hypoactive x4 qauds. VS taken, BP 144/68, temp 98.5, Hr 82, Resp 20. Dr. Oshea aware of all the above via cortext and stat CT ordered.
--- NOTE | 2020-01-09 21:12 | PN_ITS ---
Progress Note The patient had sudden onset 10 out of 10 abdominal pain this afternoon. I ordered a CT scan of the abdomen pelvis with IV contrast. She reports that after pain medication the pain was slowly improving and is currently at a 2 out of 10. She is not having any nausea or vomiting but she has been having constant diarrhea today. C. difficile and enteric pathogens were negative. White count has been increasing but she is also positive for E. coli UTI. She has been on Zosyn since admission. Repeat CT scan showed no changes in the diverticulitis with microperforation. Clinical Impression(s) from Imaging Studies Abdomen/Pelvis CT 01/09/20 18:26 IMPRESSION: No change in sigmoid diverticulitis with microperforation. Electronically Signed: Teddy Herrera MD at 19:45 EDT Tel , Service support , I discussed the patient's results with her. I offered her continued conservative management or sigmoid colectomy. I discussed laparoscopic possible open sigmoid colectomy. I informed her that I would try to perform an anastomosis but I would not be able to guarantee that she would not need a colostomy. At this point her white count has been worsening and she has not made any progress over the weekend. She was feeling better this morning but had sudden onset pain. I will recheck labs in the morning but I discussed performing a sigmoid colectomy tomorrow afternoon with her and she is willing to proceed unless there is some sort of change in her lab work and physical exam. She agrees that there is not much progress being made and on the CT scan I see several loops of small bowel which appear thickened and this is likely due to inflammation and irritation. I discussed sigmoid colectomy with the patient in detail. I discussed the risks including but not limited to bleeding, infection, injury to surrounding organs s uch as the ureter bladder or bowels, anastomotic leak, need for stoma. The patient understands the risks and is willing to proceed with sigmoid colectomy tomorrow. I do not the patient urgently needs to go to the operating room as her abdominal exam has improved and her vital signs are stable with no signs of sepsis. Alejandro Oshea MD Pager: [facility] [address] [place] [address], [address] [place] [address] Office:
[2020-01-10] VITALS (7 sets, daily range): BP systolic 119–145; BP diastolic 67–83; PULSE 79–94; RESP 16–18; TEMP 36.4–37.2; O2SAT 93–98
[2020-01-10] MEDS: Lactated Ringers 1,000 ML 100 ML IV ×3 (02:21→22:48)
[2020-01-10 05:50] LABS: Absolute Lymphocyte Count 0.71 X10^3/uL (0.83-4.51); Absolute Neutrophil Count 17.5 X10^3/uL (2.0-7.7); Basophil# 0.04 X10^3/uL; Basophil% 0.2 % (0-1); Eosinophil# 0.01 X10^3/uL; Eosinophils% 0.1 % (0-5); Hematocrit 33.1 % (37-47); Hemoglobin 10.8 g/dL (12.0-15.0); Lymphocyte # 0.71 X10^3/ul (4.0); Lymphocyte % 3.6 % (19-41); Mean Corp Hgb Conc 32.6 g/dL (32-36); Mean Corpuscular Volume 88.7 fL (81-99); Mean Platelet Vol. 10.1 fl (6.2-12.0); Monocyte# 1.42 X10^3/uL; Monocyte% 7.1 % (0-10); NRBC Flagged by Analyzer 0 % (0-5); Neutrophil # 17.54 X10^3/uL (2.7-7.7); Neutrophil % 88.2 % (47-70); Platelet Count 328 K/mm3 (150-450); RBC Distribution Width CV 13.4 % (11.6-14.6); RBC Distribution Width SD 43.8 fl (35.1-43.9); Red Blood Count 3.73 M/mm3 (4.2-5.4); White Blood Count 19.9 K/mm3 (4.4-11.0)
--- NOTE | 2020-01-10 05:55 | EKG12_ITS ---
Test Reason : PRE-OP Blood Pressure : / mmHG Vent. Rate : 089 BPM Atrial Rate : 089 BPM P-R Int : 098 ms QRS Dur : 068 ms QT Int : 348 ms P-R-T Axes : 060 009 064 degrees QTc Int : 423 ms Sinus rhythm with short [place] Low voltage QRS (Limb Leads) Confirmed by SOLA JACKSON, VERONICA ([id number]), mapping editor ADALBERTO GIPSON ([id number]) on 01/12/2020 9:42:17 AM Referred By: JERRY MCGHEE Confirmed By:VERONICA SELBY MD
[2020-01-10 06:26] LABS: Anion Gap 9 (5-15); BUN 20 mg/dL (7-18); BUN/Creat Ratio 37.7 RATIO (10-20); Calcium,Total 8.2 mg/dL (8.5-10.1); Chloride 109 mmol/L (98-107); Creatinine, Serum 0.53 mg/dL (0.55-1.02); EST Glomerular Filtration Rate 123 mL/min (>60); Est Glom Filt Rate - Afr Amer 149 mL/min (>60); Estimated Creatinine Clearance 85.93 ml/min; Glucose 84 mg/dL (74-106); Potassium 3.6 mmol/L (3.5-5.1); Sodium Level 140 mmol/L (136-145)
--- NOTE | 2020-01-10 08:12 | PN.SURG_ITS ---
Patient Problems: Active and Suspected Problems Perforation of sigmoid colon due to diverticulitis (Acute) Subjective: The patient still has some lower abdominal pain. No nausea or vomiting. Continuing diarrhea - Physical Exam Vitals/I&O's: Vital Signs Temp Pulse Resp BP Pulse Ox 98.3 F 84 16 131/67 H 94 01/10/20 08:08 01/10/20 08:08 01/10/20 08:08 01/10/20 08:08 01/10/20 08:08 Oxygen Flow Rate (L/min) 2 Oxygen Delivery Method Room Air Weight: 116 lb 6.465 oz Body Mass Index (BMI) 21.2 Intake and Output for Last 24 Hours 01/08/20 01/09/20 01/10/20 22:59 23:59 23:59 Intake Total 990.75 / 990.75 Balance 990.75 / 990.75 General: Alert, Oriented x3 Neck: No JVD Lungs: Normal air movement Cardiovascular: Regular rate, Regular Rhythm Abdomen: Soft, Non-Distended, Tender Microbiology Past 72 Hours 01/07/20 21:05 Urine, Random Urine Culture - Preliminary Presumptive E. coli 01/09/20 08:05 Stool C. difficile DNA Amplification - Final Laboratory Results 01/10/20 05:30: WBC 19.9 H, RBC 3.73 L, Hgb 10.8 L, Hct 33.1 L, MCV 88.7, MCH 29.0, MCHC 32.6, RDW Std Deviation 43.8, RDW Coeff of Ana Paula 13.4, Plt Count 328, MPV 10.1, Immature Gran % (Auto) 0.800, Neut % (Auto) 88.2 H, Lymph % (Auto) 3.6 L, [place] % (Auto) 7.1, Eos % (Auto) 0.1, Baso % (Auto) 0.2, Absolute Neuts (auto) 17.5 H, Absolute Lymphs (auto) 0.71 L, Nucleated RBC % 0 01/10/20 05:30: Sodium 140, Potassium 3.6, Chloride 109 H, Carbon Dioxide 22.0, Anion Gap 9, BUN 20 H, Creatinine 0.53 L, Estim Creat Clear Calc 85.93, Est GFR (MDRD) Af Amer 149, Est GFR (MDRD) Non-Af 123, BUN/Creatinine Ratio 37.7 H, Glucose 84, Calcium 8.2 L Current Medications Acetaminophen (Tylenol) 650 mg PO Q4H PRN PRN PRN Reason: Pain (1-10/10) or Fever Last Admin: 01/09/20 15:23 Dose: 650 mg Documented by: Enoxaparin Sodium (Lovenox) 40 mg SC DAILY [facility] Last Admin: 01/09/20 11:12 Dose: 40 mg Documented by: Lactated Ringer's () 1,000 mls @ 100 mls/hr IV .Q10H [facility] Last Admin: 01/10/20 02:21 Dose: 100 mls/hr Documented by: Piperacillin Sod/Tazobactam (Sod 3.375 gm/ Sodium Chloride) 50 mls @ 12.5 mls/hr IV Q8 [facility] Last Admin: 01/10/20 05:16 Dose: 12.5 mls/hr Documented by: Pantoprazole Sodium 40 mg/ (Sodium Chloride) 110 mls @ 330 mls/hr IV Q24 [facility] Last Infusion: 01/09/20 11:30 Dose: Infused Documented by: Sodium Chloride () 250 mls @ 15 mls/hr IV .[id number] PRN PRN Reason: Saline Flush Last Infusion: 01/10/20 05:15 Dose: 0 mls/hr Documented by: Sodium Chloride () 250 mls @ 15 mls/hr IV .[id number] PRN PRN Reason: Additional IVPB Infusion Last Infusion: 01/09/20 09:41 Dose: Infused Documented by: Morphine Sulfate () 2 - 4 mg IV Q2H PRN PRN PRN Reason: Pain Score 4-10/10 Last Admin: 01/09/20 18:15 Dose: 2 mg Documented by: Morphine Sulfate () 2 - 4 mg IV Q2H PRN PRN PRN Reason: Pain Score 4-10/10 Last Admin: 01/09/20 18:10 Dose: 2 mg Documented by: Ondansetron HCl (Zofran) 4 mg IV Q6H PRN PRN PRN Reason: NAUSEA Last Admin: 01/08/20 22:39 Dose: 4 mg Documented by: Sodium Chloride () 10 - 40 ml IV UD PRN PRN Reason: SALINE FLUSH Last Admin: 01/09/20 19:37 Dose: 10 ml Documented by: Medical Necessity - Tobacco Use Smoking Status: Former smoker Tobacco Use: Cigarettes Assessment/Plan All Active Problems Perforation of sigmoid colon due to diverticulitis (Acute) 64-year-old female with diverticulitis with abscess 1. The patient had diverticulitis with small abscess over the weekend. She was observed on antibiotics. Yesterday she had a severe episode of pain. CT was repeated and there were no changes. If anything the inflammation seems worse with thickening of some small bowel. Patient has been having diarrhea and the C. difficile was negative. Enteric pathogens are pending. Her white count continues to rise despite the Zosyn. She also had a UTI on admission but I would imagine that the Zosyn would be covering the E. coli. I believe that the increase in white count is due to her sigmoid colitis. I do recommend that she proceed with sigmoid colectomy. I will try to perform a primary anastomosis but I did inform her that a stoma is possible. I went over the surgery again with her today. Plan for laparoscopic possible open sigmoid colectomy this afternoon. I did order blood cultures as well. Alejandro Oshea MD Pager: [facility] [address] [place] [address], [address] [place] [address] Office:
--- NOTE | 2020-01-10 10:19 | PN_ITS ---
Progress Note The patient stool enteric pathogens came back positive for norovirus. This would explain the patient's diarrhea and abdominal pain. Currently the patient is having 2 out of 10 diffuse abdominal pain with no increase in the left lower quadrant. She has no guarding or rebound. Her vitals are stable. It is possible this is the cause of the small bowel thickening on the CT scan as well as the diarrhea. It may also be responsible for her white count. I am going to cancel her surgery for today as she is only having 2 out of 10 pain. I will give her sips and ice chips and discuss with ID physician. Alejandro Oshea MD Pager: [facility] [address] [place] [address], [address] [place] [address] Office: [facility] Vital Signs/Narrative: Vital Signs Temp Pulse Resp BP Pulse Ox 01/10/20 08:08 98.3 F 84 16 131/67 H 94
--- NOTE | 2020-01-10 15:17 | PCM.HP.ID ---
Reason for Consult: diverticulitis Consulted by: Dr. Oshea History of Present Illness: The patient is a 64 year old F who presented 3/ with sudden onset lower abd pain, some chills, not feeling well. Started having diarrhea, going about 6 times so far today. No blood in stool. Admitted here after CT showed sigmoid diverticulitis and perforation with fluid collection. Has been on zosyn, abd pain improved. No fever since admission. No sick contacts, no recent travel, lives at home. Full ROS performed and neg except as noted above. - Medical History Surgical History: reviewed Allergies/Adverse Reactions: Allergies No Known Allergies Allergy (Verified 01/07/20 19:42) Home Medications: Ambulatory Orders Medication Instructions Recorded Rosuvastatin Calcium [Crestor] 2.5 mg PO QODAY 01/07/20 Teriflunomide [Aubagio] 14 mg PO DAILY 01/07/20 Calcium Citrate/Vitamin D2 1 ea PO DAILY 01/08/20 [Quan-Citrate Plus Vitamin D Tab] Multivitamin [Multiple Vitamins] 1 ea PO DAILY 01/08/20 - Social History SMOKING STATUS:: Former smoker Vital Signs Temp Pulse Resp BP Pulse Ox 98.3 F 91 16 131/67 H 94 01/10/20 08:08 01/10/20 08:27 01/10/20 08:08 01/10/20 08:08 01/10/20 08:08 Oxygen Flow Rate (L/min) 2 Oxygen Delivery Method Room Air Weight: 52.8 kg Body Mass Index (BMI) 21.2 Microbiology Past 72 Hours 01/09/20 08:05 Enteric Bacteriology - Final Stool Norovirus 01/07/20 21:05 Urine Culture - Final Urine, Random Presumptive E. coli 01/09/20 08:05 C. difficile DNA Amplification - Final Stool Laboratory Tests Past 24 Hrs 01/10/20 01/10/20 05:30 05:30 WBC 19.9 H RBC 3.73 L Hgb 10.8 L Hct 33.1 L MCV 88.7 MCH 29.0 MCHC 32.6 RDW Std Deviation 43.8 RDW Coeff of Ana Paula 13.4 Plt Count 328 MPV 10.1 Immature Gran % (Auto) 0.800 Neut % (Auto) 88.2 H Lymph % (Auto) 3.6 L [place] % (Auto) 7.1 Eos % (Auto) 0.1 Baso % (Auto) 0.2 Absolute Neuts (auto) 17.5 H Absolute Lymphs (auto) 0.71 L Nucleated RBC % 0 Sodium 140 Potassium 3.6 Chloride 109 H Carbon Dioxide 22.0 Anion Gap 9 BUN 20 H Creatinine 0.53 L Estim Creat Clear Calc 85.93 Est GFR (MDRD) Af Amer 149 Est GFR (MDRD) Non-Af 123 BUN/Creatinine Ratio 37.7 H Glucose 84 Calcium 8.2 L - Other Studies Radiology: [] reviewed Other Studies: [] Route of nutrition/ use of supplements: [] Nutritional Intake: [] IV Site: [] Barrera Catheter: [] - Physical Exam General: Alert, Oriented x3, Cooperative, No apparent distress HEENT: Atraumatic, PERRLA, EOMI Neck: Supple, No Nodes Lungs: Clear to auscultation, Normal air movement Cardiovascular: Regular rate, Regular Rhythm, No murmurs Abdomen: Soft, Non Tender, Non-Distended Extremities: No edema Skin: No rashes IV Site: Peripheral Musculoskeletal: No Tenderness to Palpation of Joints or Extremities Neurological: Cranial nerves II-XII grossly intact - Assessment/Plan Antibiotics: [] Assessment/Plan: [] Active and Suspected Problems Perforation of sigmoid colon due to diverticulitis (Acute) Rising wbc despite IV abx. Now with diarrhea and norovirus (+). No fever and minimal abd pain currently. For now, would continue to monitor symptoms, but low threshold for her to go to surgery for source control. Norovirus diarrhea typically lasts 48-72 hours. Cont zosyn. Will follow, thank you, d/w Dr. Oshea
[2020-01-10] MEDS: Acetaminophen 325 MG Tablet 650 MG PO (17:49)
[2020-01-11] VITALS (12 sets, daily range): BP systolic 138–155; BP diastolic 70–81; PULSE 72–89; RESP 16–28; TEMP 36.2–36.8; O2SAT 94–97
[2020-01-11 07:16] LABS: Absolute Lymphocyte Count 0.64 X10^3/uL (0.83-4.51); Absolute Neutrophil Count 14.2 X10^3/uL (2.0-7.7); Basophil# 0.04 X10^3/uL; Basophil% 0.2 % (0-1); Eosinophil# 0.03 X10^3/uL; Eosinophils% 0.2 % (0-5); Hematocrit 30.3 % (37-47); Hemoglobin 10.1 g/dL (12.0-15.0); Lymphocyte # 0.64 X10^3/ul (4.0); Lymphocyte % 3.8 % (19-41); Mean Corp Hgb Conc 33.3 g/dL (32-36); Mean Corpuscular Hgb 29.5 pg (27.0-32.0); Mean Corpuscular Volume 88.6 fL (81-99); Mean Platelet Vol. 9.8 fl (6.2-12.0); Monocyte# 1.73 X10^3/uL; Monocyte% 10.3 % (0-10); NRBC Flagged by Analyzer 0 % (0-5); Neutrophil # 14.22 X10^3/uL (2.7-7.7); Neutrophil % 84.4 % (47-70); POSITIVE DIFFERENTIAL YES; Platelet Count 330 K/mm3 (150-450); RBC Distribution Width CV 13.6 % (11.6-14.6); RBC Distribution Width SD 44.3 fl (35.1-43.9); Red Blood Count 3.42 M/mm3 (4.2-5.4); White Blood Count 16.9 K/mm3 (4.4-11.0)
[2020-01-11 07:20] LABS: Differential Indicated SCAN CRITERIA MET
[2020-01-11 07:31] LABS: Anion Gap 10 (5-15); BUN 18 mg/dL (7-18); BUN/Creat Ratio 40.5 RATIO (10-20); Calcium,Total 7.9 mg/dL (8.5-10.1); Chloride 110 mmol/L (98-107); Creatinine, Serum 0.44 mg/dL (0.55-1.02); EST Glomerular Filtration Rate 152 mL/min (>60); Est Glom Filt Rate - Afr Amer 183 mL/min (>60); Estimated Creatinine Clearance 103.51 ml/min; Glucose 77 mg/dL (74-106); Potassium 3.3 mmol/L (3.5-5.1); Sodium Level 141 mmol/L (136-145)
--- NOTE | 2020-01-11 07:34 | PN.SURG_ITS ---
Patient Problems: Active and Suspected Problems Perforation of sigmoid colon due to diverticulitis (Acute) Subjective: Patient reports no abdominal pain this morning. She says since midnight her bowel movements have stopped and she is not having any nausea or vomiting. - Physical Exam Vitals/I&O's: Vital Signs Temp Pulse Resp BP Pulse Ox 98.3 F 81 16 155/75 H 94 01/11/20 03:22 01/11/20 03:22 01/11/20 03:22 01/11/20 03:22 01/11/20 03:22 Oxygen Flow Rate (L/min) 2 Oxygen Delivery Method Room Air Weight: 116 lb 6.465 oz Body Mass Index (BMI) 21.2 Intake and Output for Last 24 Hours 01/09/20 01/10/20 01/11/20 23:59 23:59 23:59 Intake Total 3420.75 / 3420.75 50 / 50 Balance 3420.75 / 3420.75 50 / 50 General: Alert, Oriented x3 Neck: No JVD Lungs: Normal air movement Cardiovascular: Regular rate, Regular Rhythm Abdomen: Soft, Non Tender, Non-Distended Microbiology Past 72 Hours 01/09/20 08:05 Stool Enteric Bacteriology - Final Norovirus 01/07/20 21:05 Urine, Random Urine Culture - Final Presumptive E. coli 01/09/20 08:05 Stool C. difficile DNA Amplification - Final Laboratory Results 01/11/20 07:05: WBC 16.9 H, RBC 3.42 L, Hgb 10.1 L, Hct 30.3 L, MCV 88.6, MCH 29.5, MCHC 33.3, RDW Std Deviation 44.3 H, RDW Coeff of Ana Paula 13.6, Plt Count 330, MPV 9.8, Immature Gran % (Auto) 1.100 H, Neut % (Auto) 84.4 H, Lymph % (Auto) 3.8 L, [place] % (Auto) 10.3 H, Eos % (Auto) 0.2, Baso % (Auto) 0.2, Absolute Neuts (auto) 14.2 H, Absolute Lymphs (auto) 0.64 L, Nucleated RBC % 0 01/11/20 07:05: Sodium 141, Potassium 3.3 L, Chloride 110 H, Carbon Dioxide 21.0, Anion Gap 10, BUN 18, Creatinine 0.44 L, Estim Creat Clear Calc 103.51, Est GFR (MDRD) Af Amer 183, Est GFR (MDRD) Non-Af 152, BUN/Creatinine Ratio 40.5 H, Glucose 77, Calcium 7.9 L Current Medications Acetaminophen (Tylenol) 650 mg PO Q4H PRN PRN PRN Reason: Pain (1-10) or Fever Last Admin: 01/10/20 17:49 Dose: 650 mg Documented by: Atorvastatin Calcium (Lipitor) 5 mg PO QODAY@2200 [facility] Enoxaparin Sodium (Lovenox) 40 mg SC DAILY [facility] Last Admin: 01/09/20 11:12 Dose: 40 mg Documented by: Lactated Ringer's () 1,000 mls @ 100 mls/hr IV .Q10H [facility] Last Admin: 01/10/20 22:48 Dose: 100 mls/hr Documented by: Piperacillin Sod/Tazobactam (Sod 3.375 gm/ Sodium Chloride) 50 mls @ 12.5 mls/hr IV Q8 [facility] Last Admin: 01/11/20 06:28 Dose: 12.5 mls/hr Documented by: Pantoprazole Sodium 40 mg/ (Sodium Chloride) 110 mls @ 330 mls/hr IV Q24 [facility] Last Infusion: 01/10/20 10:14 Dose: Infused Documented by: Sodium Chloride () 250 mls @ 15 mls/hr IV .[id number] PRN PRN Reason: Saline Flush Last Infusion: 01/10/20 10:34 Dose: Infused Documented by: Sodium Chloride () 250 mls @ 15 mls/hr IV .[id number] PRN PRN Reason: Additional IVPB Infusion Last Infusion: 01/09/20 09:41 Dose: Infused Documented by: Morphine Sulfate () 2 - 4 mg IV Q2H PRN PRN PRN Reason: Pain Score 4-10/10 Last Admin: 01/09/20 18:15 Dose: 2 mg Documented by: Morphine Sulfate () 2 - 4 mg IV Q2H PRN PRN PRN Reason: Pain Score 4-10/10 Last Admin: 01/09/20 18:10 Dose: 2 mg Documented by: Non-Formulary Medication (Teriflunomide) 14 mg PO DAILY [facility] Ondansetron HCl (Zofran) 4 mg IV Q6H PRN PRN PRN Reason: NAUSEA Last Admin: 01/08/20 22:39 Dose: 4 mg Documented by: Sodium Chloride () 10 - 40 ml IV UD PRN PRN Reason: SALINE FLUSH Last Admin: 01/09/20 19:37 Dose: 10 ml Documented by: Medical Necessity - Tobacco Use Smoking Status: Former smoker Tobacco Use: Cigarettes Assessment/Plan All Active Problems Perforation of sigmoid colon due to diverticulitis (Acute) 64-year-old female with diverticulitis and microperforation with abscess 1. Patient tested positive for norovirus. She is also positive for UTI sensitive to Zosyn. This was present on admission. 2. Currently the patient reports her diarrhea is improving and she is having no abdominal pain. She is having no nausea or vomiting. Her white count has improved. I will start her on a clear liquid diet and see how she does. No plans for surgery today. Alejandro Oshea MD Pager: [facility] [address] [place] [address], [address] [place] [address] Office:
[2020-01-11 07:51] LABS: Platelet Estimate ADEQUATE (ADEQ); Red Cell Morphology NORM C+C NORMAL (NORM C&C)
[2020-01-11] MEDS: Lactated Ringers 1,000 ML 100 ML IV ×2 (09:29→19:35)
[2020-01-11] MEDS: Acetaminophen 325 MG Tablet 650 MG PO ×3 (09:30→23:35)
[2020-01-11] MEDS: Potassium Chloride 10mEq/100mL 10 MEQ/100 ML IV.SOLN. 100 MEQ IV BOLUS ×2 (09:41→12:56)
--- NOTE | 2020-01-11 10:20 | PN.ID_ITS ---
Patient Problems: Active and Suspected Problems Perforation of sigmoid colon due to diverticulitis (Acute) Subjective: Feeling a little better, no abd pain, still some diarrhea. No fever - Physical Exam Vitals/I&O's: Vital Signs Temp Pulse Resp BP Pulse Ox 97.8 F 80 22 H 138/78 H 96 01/11/20 10:03 01/11/20 10:03 01/11/20 10:03 01/11/20 10:03 01/11/20 10:03 Oxygen Flow Rate (L/min) 2 Oxygen Delivery Method Room Air Weight: 52.8 kg Body Mass Index (BMI) 21.2 Intake and Output for Last 24 Hours 01/09/20 01/10/20 01/11/20 23:59 23:59 23:59 Intake Total 3420.75 / 3420.75 1060 / 1060 Balance 3420.75 / 3420.75 1060 / 1060 General: Alert, Cooperative, No apparent distress Lungs: Clear to auscultation, Normal air movement Cardiovascular: Regular rate, Regular Rhythm Abdomen: Soft, Non Tender, Non-Distended Skin: No rashes Microbiology Past 72 Hours 01/09/20 08:05 Stool Enteric Bacteriology - Final Norovirus 01/07/20 21:05 Urine, Random Urine Culture - Final Presumptive E. coli 01/09/20 08:05 Stool C. difficile DNA Amplification - Final Laboratory Results 01/11/20 07:05: WBC 16.9 H, RBC 3.42 L, Hgb 10.1 L, Hct 30.3 L, MCV 88.6, MCH 29.5, MCHC 33.3, RDW Std Deviation 44.3 H, RDW Coeff of Ana [place] 13.6, Plt Count 330, MPV 9.8, Immature Gran % (Auto) 1.100 H, Neut % (Auto) 84.4 H, Lymph % (Auto) 3.8 L, [place] % (Auto) 10.3 H, Eos % (Auto) 0.2, Baso % (Auto) 0.2, Absolute Neuts (auto) 14.2 H, Absolute Lymphs (auto) 0.64 L, Nucleated RBC % 0, Diff Path Review March, Platelet Estimate ADEQUATE, RBC Morphology NORM C+C 01/11/20 07:05: Sodium 141, Potassium 3.3 L, Chloride 110 H, Carbon Dioxide 21.0, Anion Gap 10, BUN 18, Creatinine 0.44 L, Estim Creat Clear Calc 103.51, Est GFR (MDRD) Af Amer 183, Est GFR (MDRD) Non-Af 152, BUN/Creatinine Ratio 40.5 H, Glucose 77, Calcium 7.9 L Current Medications Acetaminophen (Tylenol) 650 mg PO Q4H PRN PRN PRN Reason: Pain (1-08/12) or Fever Last Admin: 01/11/20 09:30 Dose: 650 mg Documented by: Atorvastatin Calcium (Lipitor) 5 mg PO QODAY@2200 [facility] Enoxaparin Sodium (Lovenox) 40 mg SC DAILY [facility] Last Admin: 01/09/20 11:12 Dose: 40 mg Documented by: Lactated Ringer's () 1,000 mls @ 100 mls/hr IV .Q10H [facility] Last Infusion: 01/11/20 09:35 Dose: 0 mls/hr Documented by: Piperacillin Sod/Tazobactam (Sod 3.375 gm/ Sodium Chloride) 50 mls @ 12.5 mls/hr IV Q8 [facility] Last Admin: 01/11/20 06:28 Dose: 12.5 mls/hr Documented by: Pantoprazole Sodium 40 mg/ (Sodium Chloride) 110 mls @ 330 mls/hr IV Q24 [facility] Last Admin: 01/11/20 09:33 Dose: 330 mls/hr Documented by: Sodium Chloride () 250 mls @ 15 mls/hr IV .[id number] PRN PRN Reason: Saline Flush Last Admin: 01/11/20 09:42 Dose: 15 mls/hr Documented by: Sodium Chloride () 250 mls @ 15 mls/hr IV .[id number] PRN PRN Reason: Additional IVPB Infusion Last Infusion: 01/09/20 09:41 Dose: Infused Documented by: Morphine Sulfate () 2 - 4 mg IV Q2H PRN PRN PRN Reason: Pain Score 4-10/10 Last Admin: 01/09/20 18:15 Dose: 2 mg Documented by: Morphine Sulfate () 2 - 4 mg IV Q2H PRN PRN PRN Reason: Pain Score 4-10/10 Last Admin: 01/09/20 18:10 Dose: 2 mg Documented by: Non-Formulary Medication (Teriflunomide) 14 mg PO DAILY [facility] Ondansetron HCl (Zofran) 4 mg IV Q6H PRN PRN PRN Reason: NAUSEA Last Admin: 01/08/20 22:39 Dose: 4 mg Documented by: Sodium Chloride () 10 - 40 ml IV UD PRN PRN Reason: SALINE FLUSH Last Admin: 01/09/20 19:37 Dose: 10 ml Documented by: Medical Necessity - Tobacco Use Smoking Status: Former smoker Tobacco Use: Cigarettes Route of nutrition/ use of supplements: [] Nutritional Intake: [] IV Site: [] Barrera Catheter: [] - Assessment/Plan Antibiotics: [] Assessment/Plan: [] Active and Suspected Problems Perforation of sigmoid colon due to diverticulitis (Acute) Had rising wbc despite IV abx. Now with diarrhea and norovirus (+). No fever and minimal abd pain currently. Feeling a little better, wbc improved this AM. Cont zosyn. Will follow
[2020-01-11 10:43] LABS: Pathologist Review Reviewed
--- NOTE | 2020-01-11 20:03 | NURSING ---
Pt's son brought in pt's MS medicine [facility]. Apparently he was requested to do so. I will forward it to pharmacy for verification.
[2020-01-11] MEDS: 0.9% Saline Lock 10 ML Syringe IV (23:36)
[2020-01-11] MEDS: Atorvastatin Calcium 10 MG Tablet 5 MG PO (23:36)
[2020-01-12] VITALS (11 sets, daily range): BP systolic 136–163; BP diastolic 68–83; PULSE 75–95; RESP 16–18; TEMP 36.5–37.3; O2SAT 93–95
[2020-01-12] MEDS: Lactated Ringers 1,000 ML 100 ML IV ×2 (05:26→15:51)
[2020-01-12] MEDS: Ondansetron 4 MG/2 ML Vial IV (05:33)
[2020-01-12] MEDS: 0.9% Saline Lock 10 ML Syringe IV (05:43)
[2020-01-12 06:31] LABS: Absolute Lymphocyte Count 1.01 X10^3/uL (0.83-4.51); Basophil# 0.05 X10^3/uL; Basophil% 0.3 % (0-1); Eosinophil# 0.03 X10^3/uL; Eosinophils% 0.2 % (0-5); Hematocrit 30.7 % (37-47); Hemoglobin 10.1 g/dL (12.0-15.0); Lymphocyte # 1.01 X10^3/ul (4.0); Lymphocyte % 5.5 % (19-41); Mean Corp Hgb Conc 32.9 g/dL (32-36); Mean Corpuscular Hgb 29.2 pg (27.0-32.0); Mean Corpuscular Volume 88.7 fL (81-99); Mean Platelet Vol. 10.1 fl (6.2-12.0); Monocyte# 2.09 X10^3/uL; Monocyte% 11.3 % (0-10); NRBC Flagged by Analyzer 0 % (0-5); Neutrophil # 15.01 X10^3/uL (2.7-7.7); Neutrophil % 81.4 % (47-70); POSITIVE DIFFERENTIAL YES; Platelet Count 369 K/mm3 (150-450); RBC Distribution Width SD 45.3 fl (35.1-43.9); Red Blood Count 3.46 M/mm3 (4.2-5.4); White Blood Count 18.4 K/mm3 (4.4-11.0)
[2020-01-12 06:37] LABS: Differential Indicated SCAN CRITERIA MET
[2020-01-12 06:58] LABS: Anion Gap 10 (5-15); BUN 11 mg/dL (7-18); BUN/Creat Ratio 28.6 RATIO (10-20); Calcium,Total 7.8 mg/dL (8.5-10.1); Chloride 111 mmol/L (98-107); Creatinine, Serum 0.38 mg/dL (0.55-1.02); EST Glomerular Filtration Rate 179 mL/min (>60); Est Glom Filt Rate - Afr Amer 216 mL/min (>60); Estimated Creatinine Clearance 119.85 ml/min; Glucose 86 mg/dL (74-106); Potassium 3.2 mmol/L (3.5-5.1); Sodium Level 140 mmol/L (136-145)
[2020-01-12 07:00] LABS: Differential Comment SCANNED
--- NOTE | 2020-01-12 07:36 | PCM.PN.SRG ---
Patient Problems: Active and Suspected Problems Perforation of sigmoid colon due to diverticulitis (Acute) Subjective: Patient reports that she has been having diarrhea still. She reports a 1 out of 10 abdominal pain with no vomiting. - Physical Exam Vitals/I&O's: Vital Signs Temp Pulse Resp BP Pulse Ox 98.2 F 81 18 151/75 H 93 01/12/20 05:30 01/12/20 06:00 01/12/20 05:30 01/12/20 05:30 01/12/20 05:30 Oxygen Flow Rate (L/min) 2 Oxygen Delivery Method Room Air Weight: 116 lb 6.465 oz Body Mass Index (BMI) 21.2 Intake and Output for Last 24 Hours 01/10/20 01/11/20 01/12/20 23:59 23:59 23:59 Intake Total 3420.75 / 3420.75 2955.00 / 2955.00 1085 / 1085 Balance 3420.75 / 3420.75 2955.00 / 2955.00 1085 / 1085 General: Alert, Oriented x3 Lungs: Normal air movement Cardiovascular: Regular rate, Regular Rhythm Abdomen: Soft, Non Tender, Non-Distended Microbiology Past 72 Hours 01/09/20 08:05 Stool Enteric Bacteriology - Final Norovirus 01/07/20 21:05 Urine, Random Urine Culture - Final Presumptive E. coli 01/09/20 08:05 Stool C. difficile DNA Amplification - Final Laboratory Results 01/11/20 07:05: Diff Path Review Reviewed, Platelet Estimate ADEQUATE, RBC Morphology NORM C+C 01/12/20 05:36: WBC 18.4 H, RBC 3.46 L, Hgb 10.1 L, Hct 30.7 L, MCV 88.7, MCH 29.2, MCHC 32.9, RDW Std Deviation 45.3 H, RDW Coeff of Ana Paula 14.0, Plt Count 369, MPV 10.1, Immature Gran % (Auto) 1.300 H, Neut % (Auto) 81.4 H, Lymph % (Auto) 5.5 L, [place] % (Auto) 11.3 H, Eos % (Auto) 0.2, Baso % (Auto) 0.3, Absolute Neuts (auto) 15.0 H, Absolute Lymphs (auto) 1.01, Nucleated RBC % 0, Differential Comment SCANNED, Diff Path Review March01/12/20 05:36: Sodium 140, Potassium 3.2 L, Chloride 111 H, Carbon Dioxide 19.0 L, Anion Gap 10, BUN 11, Creatinine 0.38 L, Estim Creat Clear Calc 119.85, Est GFR (MDRD) Af Amer 216, Est GFR (MDRD) Non-Af 179, BUN/Creatinine Ratio 28.6 H, Glucose 86, Calcium 7.8 L Current Medications Acetaminophen (Tylenol) 650 mg PO Q4H PRN PRN PRN Reason: Pain (1-08/12) or Fever Last Admin: 01/11/20 23:35 Dose: 650 mg Documented by: Atorvastatin Calcium (Lipitor) 5 mg PO QODAY@2200 [facility] Last Admin: 01/11/20 23:36 Dose: 5 mg Documented by: Enoxaparin Sodium (Lovenox) 40 mg SC DAILY [facility] Last Admin: 01/09/20 11:12 Dose: 40 mg Documented by: Lactated Ringer's () 1,000 mls @ 100 mls/hr IV .Q10H [facility] Last Admin: 01/12/20 05:26 Dose: 100 mls/hr Documented by: Piperacillin Sod/Tazobactam (Sod 3.375 gm/ Sodium Chloride) 50 mls @ 12.5 mls/hr IV Q8 [facility] Last Admin: 01/12/20 05:39 Dose: 12.5 mls/hr Documented by: Pantoprazole Sodium 40 mg/ (Sodium Chloride) 110 mls @ 330 mls/hr IV Q24 [facility] Last Infusion: 01/11/20 09:53 Dose: Infused Documented by: Sodium Chloride () 250 mls @ 15 mls/hr IV .[id number] PRN PRN Reason: Saline Flush Last Infusion: 01/11/20 18:02 Dose: 0 mls/hr Documented by: Sodium Chloride () 250 mls @ 15 mls/hr IV .[id number] PRN PRN Reason: Additional IVPB Infusion Last Infusion: 01/09/20 09:41 Dose: Infused Documented by: Morphine Sulfate () 2 - 4 mg IV Q2H PRN PRN PRN Reason: Pain Score 4-1010 Last Admin: 01/09/20 18:15 Dose: 2 mg Documented by: Morphine Sulfate () 2 - 4 mg IV Q2H PRN PRN PRN Reason: Pain Score 4-10/10 Last Admin: 01/09/20 18:10 Dose: 2 mg Documented by: Non-Formulary Medication (Teriflunomide) 14 mg PO DAILY [facility] Last Admin: 01/12/20 00:51 Dose: Not Given Documented by: Ondansetron HCl (Zofran) 4 mg IV Q6H PRN PRN PRN Reason: NAUSEA Last Admin: 01/12/20 05:33 Dose: 4 mg Documented by: Sodium Chloride () 10 - 40 ml IV UD PRN PRN Reason: SALINE FLUSH Last Admin: 01/12/20 05:43 Dose: 10 ml Documented by: Medical Necessity - Tobacco Use Smoking Status: Former smoker Tobacco Use: Cigarettes Assessment/Plan All Active Problems Perforation of sigmoid colon due to diverticulitis (Acute) 64-year-old female with diverticulitis and abscess and norovirus infection 1. The patient is having continuing diarrhea. She is not having any vomiting. She tolerated clear liquids yesterday. I had to push very deeply to elicit any abdominal pain. I am having a hard time discerning if her elevated white count is from inflammation and the norovirus or if it is from her diverticulitis. At this time clinically her exam is extremely benign. She has a soft nondistended abdomen with no guarding or rebound and minimal pain. Her vitals are all stable and she is afebrile. I discussed her options with her. I discussed colectomy but in this inflamed state due to the norovirus and the diarrhea it might be very difficult to perform an anastomosis without a diverting loop ileostomy to protect the anastomosis. The patient would like to try to avoid stoma if at all possible and she is doing fairly well. We will continue to monitor. Possibly repeat CT tomorrow. Continue antibiotics. Alejandro Oshea MD Pager: [facility] [address] [place] [address], [address] [place] [address] Office:
[2020-01-12] MEDS: Potassium Chloride 10mEq/100mL 10 MEQ/100 ML IV.SOLN. 100 MEQ IV BOLUS ×4 (08:35→12:15)
[2020-01-12 12:32] LABS: Pathologist Review Reviewed
[2020-01-12] MEDS: Acetaminophen 325 MG Tablet 650 MG PO (18:23)
--- NOTE | 2020-01-12 18:55 | PCM.PN.ID ---
Patient Problems: Active and Suspected Problems Perforation of sigmoid colon due to diverticulitis (Acute) Subjective: Diarrhea slowing, still some abd pain, no fever. - Physical Exam Vitals/I&O's: Vital Signs Temp Pulse Resp BP Pulse Ox 99.2 F H 93 16 136/68 H 94 01/12/20 14:33 01/12/20 15:44 01/12/20 14:33 01/12/20 14:33 01/12/20 14:33 Oxygen Flow Rate (L/min) 2 Oxygen Delivery Method Room Air Weight: 52.8 kg Body Mass Index (BMI) 21.2 Intake and Output for Last 24 Hours 01/10/20 01/11/20 01/12/20 23:59 23:59 23:59 Intake Total 3420.75 / 3420.75 2955.00 / 2955.00 2845.75 / 2845.75 Balance 3420.75 / 3420.75 2955.00 / 2955.00 2845.75 / 2845.75 General: Alert, Cooperative, No apparent distress Lungs: Clear to auscultation, Normal air movement Cardiovascular: Regular rate, Regular Rhythm Abdomen: Soft, Non-Distended, Tender - mild Skin: No rashes Microbiology Past 72 Hours 01/10/20 07:00 Blood Culture (Wb) - Right Hand Blood Culture - Preliminary No growth in 48 hours. 01/10/20 06:55 Blood Culture (Wb) - Anticubital Right Blood Culture - Preliminary No growth in 48 hours. 01/09/20 08:05 Stool Enteric Bacteriology - Final Norovirus 01/07/20 21:05 Urine, Random Urine Culture - Final Presumptive E. coli Laboratory Results 01/12/20 05:36: WBC 18.4 H, RBC 3.46 L, Hgb 10.1 L, Hct 30.7 L, MCV 88.7, MCH 29.2, MCHC 32.9, RDW Std Deviation 45.3 H, RDW Coeff of Ana Paula 14.0, Plt Count 369, MPV 10.1, Immature Gran % (Auto) 1.300 H, Neut % (Auto) 81.4 H, Lymph % (Auto) 5.5 L, [place] % (Auto) 11.3 H, Eos % (Auto) 0.2, Baso % (Auto) 0.3, Absolute Neuts (auto) 15.0 H, Absolute Lymphs (auto) 1.01, Nucleated RBC % 0, Differential Comment SCANNED, Diff Path Review Reviewed 01/12/20 05:36: Sodium 140, Potassium 3.2 L, Chloride 111 H, Carbon Dioxide 19.0 L, Anion Gap 10, BUN 11, Creatinine 0.38 L, Estim Creat Clear Calc 119.85, Est GFR (MDRD) Af Amer 216, Est GFR (MDRD) Non-Af 179, BUN/Creatinine Ratio 28.6 H, Glucose 86, Calcium 7.8 L Current Medications Acetaminophen (Tylenol) 650 mg PO Q4H PRN PRN PRN Reason: Pain (1-08/12) or Fever Last Admin: 01/12/20 18:23 Dose: 650 mg Documented by: Atorvastatin Calcium (Lipitor) 5 mg PO QODAY@2200 [facility] Last Admin: 01/11/20 23:36 Dose: 5 mg Documented by: Enoxaparin Sodium (Lovenox) 40 mg SC DAILY [facility] Last Admin: 01/09/20 11:12 Dose: 40 mg Documented by: Lactated Ringer's () 1,000 mls @ 100 mls/hr IV .Q10H [facility] Last Admin: 01/12/20 15:51 Dose: 100 mls/hr Documented by: Pantoprazole Sodium 40 mg/ (Sodium Chloride) 110 mls @ 330 mls/hr IV Q24 [facility] Last Infusion: 01/12/20 10:24 Dose: Infused Documented by: Sodium Chloride () 250 mls @ 15 mls/hr IV .[id number] PRN PRN Reason: Saline Flush Last Infusion: 01/12/20 18:22 Dose: 15 mls/hr Documented by: Sodium Chloride () 250 mls @ 15 mls/hr IV .[id number] PRN PRN Reason: Additional IVPB Infusion Last Infusion: 01/12/20 14:24 Dose: 0 mls/hr Documented by: Meropenem 1 gm/ Sodium (Chloride) 120 mls @ 33 mls/hr IV Q8 [facility] Morphine Sulfate () 2 - 4 mg IV Q2H PRN PRN PRN Reason: Pain Score 4-10/10 Last Admin: 01/09/20 18:15 Dose: 2 mg Documented by: Morphine Sulfate () 2 - 4 mg IV Q2H PRN PRN PRN Reason: Pain Score 4-10/10 Last Admin: 01/09/20 18:10 Dose: 2 mg Documented by: Non-Formulary Medication (Teriflunomide) 14 mg PO DAILY [facility] Last Admin: 01/12/20 10:48 Dose: 14 mg Documented by: Ondansetron HCl (Zofran) 4 mg IV Q6H PRN PRN PRN Reason: NAUSEA Last Admin: 01/12/20 05:33 Dose: 4 mg Documented by: Sodium Chloride () 10 - 40 ml IV UD PRN PRN Reason: SALINE FLUSH Last Admin: 01/12/20 05:43 Dose: 10 ml Documented by: Medical Necessity - Tobacco Use Smoking Status: Former smoker Tobacco Use: Cigarettes Route of nutrition/ use of supplements: [] Nutritional Intake: [] IV Site: [] Barrera Catheter: [] - Assessment/Plan Antibiotics: [] Assessment/Plan: [] Active and Suspected Problems Perforation of sigmoid colon due to diverticulitis (Acute) Had rising wbc despite IV abx. Now with diarrhea and norovirus (+). No fever and minimal abd pain currently. Diarrhea still present but slowed somewhat. Wbc increased today, will change zosyn to meropenem and see if that helps. Will follow
[2020-01-13] VITALS (9 sets, daily range): BP systolic 147–154; BP diastolic 67–87; PULSE 77–102; RESP 16–18; TEMP 36.7–37.3; O2SAT 92–95
[2020-01-13 06:36] LABS: Absolute Lymphocyte Count 0.77 X10^3/uL (0.83-4.51); Absolute Neutrophil Count 15.4 X10^3/uL (2.0-7.7); Basophil# 0.06 X10^3/uL; Basophil% 0.3 % (0-1); Eosinophil# 0.02 X10^3/uL; Eosinophils% 0.1 % (0-5); Hematocrit 29.5 % (37-47); Hemoglobin 9.7 g/dL (12.0-15.0); Lymphocyte # 0.77 X10^3/ul (4.0); Lymphocyte % 4.1 % (19-41); Mean Corp Hgb Conc 32.9 g/dL (32-36); Mean Corpuscular Hgb 29.2 pg (27.0-32.0); Mean Corpuscular Volume 88.9 fL (81-99); Mean Platelet Vol. 9.6 fl (6.2-12.0); Monocyte# 2.03 X10^3/uL; Monocyte% 10.9 % (0-10); NRBC Flagged by Analyzer 0.1 % (0-5); Neutrophil # 15.39 X10^3/uL (2.7-7.7); Neutrophil % 82.6 % (47-70); POSITIVE DIFFERENTIAL YES; Platelet Count 361 K/mm3 (150-450); RBC Distribution Width CV 13.8 % (11.6-14.6); RBC Distribution Width SD 45.1 fl (35.1-43.9); Red Blood Count 3.32 M/mm3 (4.2-5.4); White Blood Count 18.6 K/mm3 (4.4-11.0)
[2020-01-13 06:37] LABS: Differential Indicated SCAN CRITERIA MET
[2020-01-13 07:03] LABS: Differential Comment SCANNED
[2020-01-13 07:04] LABS: Anion Gap 8 (5-15); BUN 6 mg/dL (7-18); BUN/Creat Ratio 14.3 RATIO (10-20); Calcium,Total 7.5 mg/dL (8.5-10.1); Chloride 109 mmol/L (98-107); Creatinine, Serum 0.42 mg/dL (0.55-1.02); EST Glomerular Filtration Rate 162 mL/min (>60); Est Glom Filt Rate - Afr Amer 196 mL/min (>60); Estimated Creatinine Clearance 108.43 ml/min; Glucose 88 mg/dL (74-106); Platelet Estimate ADEQUATE (ADEQ); Potassium 3.2 mmol/L (3.5-5.1); Sodium Level 141 mmol/L (136-145)
--- NOTE | 2020-01-13 08:22 | PCM.PN.SRG ---
Patient Problems: Active and Suspected Problems Perforation of sigmoid colon due to diverticulitis (Acute) Subjective: Patient is having no abdominal pain at all today. She is still having diarrhea but she is only had 2 episodes overnight. She is not having any nausea or vomiting and is tolerating clear liquids well. - Physical Exam Vitals/I&O's: Vital Signs Temp Pulse Resp BP Pulse Ox 99.1 F 84 16 154/83 H 95 01/13/20 02:40 01/13/20 04:27 01/13/20 02:40 01/13/20 02:40 01/13/20 02:40 Oxygen Flow Rate (L/min) 2 Oxygen Delivery Method Room Air Weight: 116 lb 6.465 oz Body Mass Index (BMI) 21.2 Intake and Output for Last 24 Hours 01/11/20 01/12/20 01/13/20 23:59 23:59 23:59 Intake Total 2955.00 / 2955.00 2845.75 / 3195.75 1720 / 1720 Balance 2955.00 / 2955.00 2845.75 / 3195.75 1720 / 1720 General: Alert, Oriented x3 Lungs: Normal air movement Cardiovascular: Regular rate, Regular Rhythm Abdomen: Soft, Non Tender, Non-Distended Microbiology Past 72 Hours 01/10/20 07:00 Blood Culture (Wb) - Right Hand Blood Culture - Preliminary No growth in 48 hours. 01/10/20 06:55 Blood Culture (Wb) - Anticubital Right Blood Culture - Preliminary No growth in 48 hours. 01/09/20 08:05 Stool Enteric Bacteriology - Final Norovirus 01/07/20 21:05 Urine, Random Urine Culture - Final Presumptive E. coli Laboratory Results 01/12/20 05:36: Diff Path Review Reviewed 01/13/20 05:55: WBC 18.6 H, RBC 3.32 L, Hgb 9.7 L, Hct 29.5 L, MCV 88.9, MCH 29.2, MCHC 32.9, RDW Std Deviation 45.1 H, RDW Coeff of Ana Paula 13.8, Plt Count 361, MPV 9.6, Immature Gran % (Auto) 2.000 H, Neut % (Auto) 82.6 H, Lymph % (Auto) 4.1 L, [place] % (Auto) 10.9 H, Eos % (Auto) 0.1, Baso % (Auto) 0.3, Absolute Neuts (auto) 15.4 H, Absolute Lymphs (auto) 0.77 L, Nucleated RBC % 0.1, Differential Comment SCANNED, Diff Path Review March foll, Platelet Estimate ADEQUATE 01/13/20 05:55: Sodium 141, Potassium 3.2 L, Chloride 109 H, Carbon Dioxide 24.0, Anion Gap 8, BUN 6 L, Creatinine 0.42 L, Estim Creat Clear Calc 108.43, Est GFR (MDRD) Af Amer 196, Est GFR (MDRD) Non-Af 162, BUN/Creatinine Ratio 14.3, Glucose 88, Calcium 7.5 L Current Medications Acetaminophen (Tylenol) 650 mg PO Q4H PRN PRN PRN Reason: Pain () or Fever Last Admin: 01/12/20 18:23 Dose: 650 mg Documented by: Atorvastatin Calcium (Lipitor) 5 mg PO QODAY@2200 [facility] Last Admin: 01/11/20 23:36 Dose: 5 mg Documented by: Enoxaparin Sodium (Lovenox) 40 mg SC DAILY [facility] Last Admin: 01/09/20 11:12 Dose: 40 mg Documented by: Lactated Ringer's () 1,000 mls @ 20 mls/hr IV .Q48H [facility] Last Infusion: 01/13/20 07:35 Dose: Infused Documented by: Pantoprazole Sodium 40 mg/ (Sodium Chloride) 110 mls @ 330 mls/hr IV Q24 [facility] Last Infusion: 01/12/20 10:24 Dose: Infused Documented by: Sodium Chloride () 250 mls @ 15 mls/hr IV .[id number] PRN PRN Reason: Saline Flush Last Infusion: 01/12/20 18:22 Dose: 15 mls/hr Documented by: Sodium Chloride () 250 mls @ 15 mls/hr IV .[id number] PRN PRN Reason: Additional IVPB Infusion Last Infusion: 01/12/20 14:24 Dose: 0 mls/hr Documented by: Meropenem 1 gm/ Sodium (Chloride) 120 mls @ 33 mls/hr IV Q8 [facility] Last Admin: 01/13/20 05:00 Dose: 33 mls/hr Documented by: Morphine Sulfate () 2 - 4 mg IV Q2H PRN PRN PRN Reason: Pain Score 4-10/10 Last Admin: 01/09/20 18:15 Dose: 2 mg Documented by: Morphine Sulfate () 2 - 4 mg IV Q2H PRN PRN PRN Reason: Pain Score 4-10/10 Last Admin: 01/09/20 18:10 Dose: 2 mg Documented by: Non-Formulary Medication (Teriflunomide) 14 mg PO DAILY [facility] Last Admin: 01/12/20 10:48 Dose: 14 mg Documented by: Nutritional Formula (Lactose Free) (Ensure Clear) 120 ml PO TIDCM [facility] Ondansetron HCl (Zofran) 4 mg IV Q6H PRN PRN PRN Reason: NAUSEA Last Admin: 01/12/20 05:33 Dose: 4 mg Documented by: Sodium Chloride () 10 - 40 ml IV UD PRN PRN Reason: SALINE FLUSH Last Admin: 01/12/20 05:43 Dose: 10 ml Documented by: Medical Necessity - Tobacco Use Smoking Status: Former smoker Tobacco Use: Cigarettes Assessment/Plan All Active Problems Perforation of sigmoid colon due to diverticulitis (Acute) 64-year-old female with diverticulitis with abscess and norovirus infection as well as UTI 1. The patient has no abdominal pain today. She has been tolerating clear liquid diet with no nausea or vomiting. Her diarrhea is decreasing somewhat. The patient does not have fever and her vitals are all stable. I would not recommend surgery at this time. Her white count does continue to be elevated and she was changed from Zosyn to meropenem per ID. Continue clear liquids and I will add Ensure clear. Once her diarrhea subsides I will try regular diet and repeat CT with IV and p.o. contrast before discharge. Alejandro Oshea MD Pager: [facility] [address] [place] [address], [address] [place] [address] Office:
[2020-01-13] MEDS: Lactated Ringers 1,000 ML 20 ML IV (08:30)
[2020-01-13] MEDS: Ensure Clear 120 ML Liquid PO ×3 (08:41→16:58)
--- NOTE | 2020-01-13 09:48 | PN.ID_ITS ---
Patient Problems: Active and Suspected Problems Perforation of sigmoid colon due to diverticulitis (Acute) Subjective: Denies abd pain, still intermittent diarrhea. No fever. - Physical Exam Vitals/I&O's: Vital Signs Temp Pulse Resp BP Pulse Ox 98.5 F 78 18 153/87 H 92 01/13/20 08:40 01/13/20 08:47 01/13/20 08:40 01/13/20 08:40 01/13/20 08:40 Oxygen Flow Rate (L/min) 2 Oxygen Delivery Method Room Air Weight: 52.8 kg Body Mass Index (BMI) 21.2 Intake and Output for Last 24 Hours 01/11/20 01/12/20 01/13/20 23:59 23:59 23:59 Intake Total 2955.00 / 2955.00 2845.75 / 3195.75 2166.07 / 2166.07 Balance 2955.00 / 2955.00 2845.75 / 3195.75 2166.07 / 2166.07 General: Alert, Cooperative, No apparent distress Lungs: Clear to auscultation, Normal air movement Cardiovascular: Regular rate, Regular Rhythm Abdomen: Soft, Non Tender, Non-Distended Skin: No rashes Microbiology Past 72 Hours 01/10/20 07:00 Blood Culture (Wb) - Right Hand Blood Culture - Preliminary No growth in 48 hours. 01/10/20 06:55 Blood Culture (Wb) - Anticubital Right Blood Culture - Preliminary No growth in 48 hours. 01/09/20 08:05 Stool Enteric Bacteriology - Final Norovirus 01/07/20 21:05 Urine, Random Urine Culture - Final Presumptive E. coli Laboratory Results 01/12/20 05:36: Diff Path Review Reviewed 01/13/20 05:55: WBC 18.6 H, RBC 3.32 L, Hgb 9.7 L, Hct 29.5 L, MCV 88.9, MCH 29.2, MCHC 32.9, RDW Std Deviation 45.1 H, RDW Coeff of [place] 13.8, Plt Count 361, MPV 9.6, Immature Gran % (Auto) 2.000 H, Neut % (Auto) 82.6 H, Lymph % (Auto) 4.1 L, [place] % (Auto) 10.9 H, Eos % (Auto) 0.1, Baso % (Auto) 0.3, Absolute Neuts (auto) 15.4 H, Absolute Lymphs (auto) 0.77 L, Nucleated RBC % 0.1, Differential Comment SCANNED, Diff Path Review March foll, Platelet Estimate ADEQUATE 01/13/20 05:55: Sodium 141, Potassium 3.2 L, Chloride 109 H, Carbon Dioxide 24.0, Anion Gap 8, BUN 6 L, Creatinine 0.42 L, Estim Creat Clear Calc 108.43, Est GFR (MDRD) Af Amer 196, Est GFR (MDRD) Non-Af 162, BUN/Creatinine Ratio 14.3, Glucose 88, Calcium 7.5 L Current Medications Acetaminophen (Tylenol) 650 mg PO Q4H PRN PRN PRN Reason: Pain () or Fever Last Admin: 01/12/20 18:23 Dose: 650 mg Documented by: Atorvastatin Calcium (Lipitor) 5 mg PO QODAY@2200 [facility] Last Admin: 01/11/20 23:36 Dose: 5 mg Documented by: Enoxaparin Sodium (Lovenox) 40 mg SC DAILY [facility] Last Admin: 01/09/20 11:12 Dose: 40 mg Documented by: Lactated Ringer's () 1,000 mls @ 20 mls/hr IV .Q48H [facility] Last Infusion: 01/13/20 08:52 Dose: 20 mls/hr Documented by: Pantoprazole Sodium 40 mg/ (Sodium Chloride) 110 mls @ 330 mls/hr IV Q24 [facility] Last Infusion: 01/13/20 08:52 Dose: Infused Documented by: Sodium Chloride () 250 mls @ 15 mls/hr IV .[id number] PRN PRN Reason: Saline Flush Last Admin: 01/13/20 08:36 Dose: 15 mls/hr Documented by: Sodium Chloride () 250 mls @ 15 mls/hr IV .[id number] PRN PRN Reason: Additional IVPB Infusion Last Infusion: 01/12/20 14:24 Dose: 0 mls/hr Documented by: Meropenem 1 gm/ Sodium (Chloride) 120 mls @ 33 mls/hr IV Q8 [facility] Last Infusion: 01/13/20 08:38 Dose: Infused Documented by: Morphine Sulfate () 2 - 4 mg IV Q2H PRN PRN PRN Reason: Pain Score 4-10/10 Last Admin: 01/09/20 18:15 Dose: 2 mg Documented by: Morphine Sulfate () 2 - 4 mg IV Q2H PRN PRN PRN Reason: Pain Score 4-10/10 Last Admin: 01/09/20 18:10 Dose: 2 mg Documented by: Non-Formulary Medication (Teriflunomide) 14 mg PO DAILY [facility] Last Admin: 01/13/20 08:37 Dose: 14 mg Documented by: Nutritional Formula (Lactose Free) (Ensure Clear) 120 ml PO TIDCM [facility] Last Admin: 01/13/20 08:41 Dose: 120 ml Documented by: Ondansetron HCl (Zofran) 4 mg IV Q6H PRN PRN PRN Reason: NAUSEA Last Admin: 01/12/20 05:33 Dose: 4 mg Documented by: Sodium Chloride () 10 - 40 ml IV UD PRN PRN Reason: SALINE FLUSH Last Admin: 01/12/20 05:43 Dose: 10 ml Documented by: Medical Necessity - Tobacco Use Smoking Status: Former smoker Tobacco Use: Cigarettes Route of nutrition/ use of supplements: [] Nutritional Intake: [] IV Site: [] Barrera Catheter: [] - Assessment/Plan Antibiotics: [] Assessment/Plan: [] Active and Suspected Problems Perforation of sigmoid colon due to diverticulitis (Acute) Had rising wbc despite IV abx. Now with diarrhea and norovirus (+). No fever and minimal abd pain currently. Diarrhea still present but slowed somewhat. Wbc stable today, changed zosyn to meropenem 01/11. Will follow
[2020-01-13 09:50] LABS: Pathologist Review Reviewed
[2020-01-13] MEDS: Potassium Chloride 10mEq/100mL 10 MEQ/100 ML IV.SOLN. 100 MEQ IV BOLUS (14:15)
[2020-01-13] MEDS: Potassium Chloride 10mEq/100mL 10 MEQ/100 ML IV.SOLN. 8 MEQ IV BOLUS ×2 (15:27→16:57)
[2020-01-13] MEDS: Acetaminophen 325 MG Tablet 650 MG PO (20:53)
[2020-01-13] MEDS: Atorvastatin Calcium 10 MG Tablet 5 MG PO (22:34)
[2020-01-14] VITALS (11 sets, daily range): BP systolic 144–152; BP diastolic 77–90; PULSE 75–102; RESP 16–18; TEMP 36.6–37; O2SAT 94–97
[2020-01-14 06:20] LABS: Absolute Lymphocyte Count 0.97 X10^3/uL (0.83-4.51); Basophil# 0.08 X10^3/uL; Basophil% 0.4 % (0-1); Eosinophil# 0.06 X10^3/uL; Eosinophils% 0.3 % (0-5); Hematocrit 31.2 % (37-47); Hemoglobin 10.3 g/dL (12.0-15.0); Lymphocyte # 0.97 X10^3/ul (4.0); Lymphocyte % 5.2 % (19-41); Mean Corpuscular Hgb 29.2 pg (27.0-32.0); Mean Corpuscular Volume 88.4 fL (81-99); Mean Platelet Vol. 9.4 fl (6.2-12.0); Monocyte% 10.2 % (0-10); NRBC Flagged by Analyzer 0.1 % (0-5); POSITIVE DIFFERENTIAL YES; Platelet Count 444 K/mm3 (150-450); RBC Distribution Width SD 44.7 fl (35.1-43.9); Red Blood Count 3.53 M/mm3 (4.2-5.4); White Blood Count 18.5 K/mm3 (4.4-11.0)
[2020-01-14 06:21] LABS: Differential Indicated SCAN CRITERIA MET
--- NOTE | 2020-01-14 06:51 | PN.SURG_ITS ---
Patient Problems: Active and Suspected Problems Perforation of sigmoid colon due to diverticulitis (Acute) Subjective: Patient is having absolutely no abdominal pain today. Her last bout of diarrhea was approximately 7 hours ago. She had no nausea or vomiting with clears and tolerated these well. - Physical Exam Vitals/I&O's: Vital Signs Temp Pulse Resp BP Pulse Ox 98.5 F 77 16 150/82 H 95 01/14/20 03:16 01/14/20 04:21 01/14/20 03:16 01/14/20 03:16 01/14/20 03:16 Oxygen Flow Rate (L/min) 2 Oxygen Delivery Method Room Air Weight: 116 lb 6.465 oz Body Mass Index (BMI) 21.2 Intake and Output for Last 24 Hours 01/12/20 01/13/20 01/14/20 23:59 23:59 23:59 Intake Total 2845.75 / 3195.75 4191.65 / 4191.65 381.5 / 381.5 Balance 2845.75 / 3195.75 4191.65 / 4191.65 381.5 / 381.5 General: Alert, Oriented x3 Neck: No JVD Lungs: Normal air movement Cardiovascular: Regular rate, Regular Rhythm Abdomen: Soft, Non Tender, Non-Distended Microbiology Past 72 Hours 01/10/20 07:00 Blood Culture (Wb) - Right Hand Blood Culture - Preliminary No growth in 48 hours. 01/10/20 06:55 Blood Culture (Wb) - Anticubital Right Blood Culture - Preliminary No growth in 48 hours. Laboratory Results 01/13/20 05:55: Differential Comment SCANNED, Diff Path Review Reviewed, Platelet Estimate ADEQUATE 01/13/20 05:55: Sodium 141, Potassium 3.2 L, Chloride 109 H, Carbon Dioxide 24.0, Anion Gap 8, BUN 6 L, Creatinine 0.42 L, Estim Creat Clear Calc 108.43, Est GFR (MDRD) Af Amer 196, Est GFR (MDRD) Non-Af 162, BUN/Creatinine Ratio 14.3, Glucose 88, Calcium 7.5 L 01/14/20 05:45: WBC 18.5 H, RBC 3.53 L, Hgb 10.3 L, Hct 31.2 L, MCV 88.4, MCH 29.2, MCHC 33.0, RDW Std Deviation 44.7 H, RDW Coeff of Ana Paula 14.0, Plt Count 444, MPV 9.4, Immature Gran % (Auto) 2.900 H, Neut % (Auto) 81.0 H, Lymph % (Auto) 5.2 L, Sullivan % (Auto) 10.2 H, Eos % (Auto) 0.3, Baso % (Auto) 0.4, Absolute Neuts (auto) 15.0 H, Absolute Lymphs (auto) 0.97, Nucleated RBC % 0.1 01/14/20 05:45: Sodium Pending, Potassium Pending, Chloride Pending, Carbon Dioxide Pending, Anion Gap Pending, BUN Pending, Creatinine Pending, Est GFR (MDRD) Af Amer Pending, Est GFR (MDRD) Non-Af Pending, BUN/Creatinine Ratio Pending, Glucose Pending, Calcium Pending, Magnesium Pending Current Medications Acetaminophen (Tylenol) 650 mg PO Q4H PRN PRN PRN Reason: Pain (-08/12) or Fever Last Admin: 01/13/20 20:53 Dose: 650 mg Documented by: Atorvastatin Calcium (Lipitor) 5 mg PO QODAY@2200 [facility] Last Admin: 01/13/20 22:34 Dose: 5 mg Documented by: Enoxaparin Sodium (Lovenox) 40 mg SC DAILY [facility] Last Admin: 01/09/20 11:12 Dose: 40 mg Documented by: Lactated Ringer's () 1,000 mls @ 20 mls/hr IV .Q48H [facility] Last Infusion: 01/14/20 05:33 Dose: 0 mls/hr Documented by: Pantoprazole Sodium 40 mg/ (Sodium Chloride) 110 mls @ 330 mls/hr IV Q24 [facility] Last Infusion: 01/13/20 08:52 Dose: Infused Documented by: Sodium Chloride () 250 mls @ 15 mls/hr IV .[id number] PRN PRN Reason: Saline Flush Last Infusion: 01/14/20 03:15 Dose: 0 mls/hr Documented by: Sodium Chloride () 250 mls @ 15 mls/hr IV .[id number] PRN PRN Reason: Additional IVPB Infusion Last Infusion: 01/14/20 03:22 Dose: Infused Documented by: Meropenem 1 gm/ Sodium (Chloride) 120 mls @ 33 mls/hr IV Q8 [facility] Last Admin: 01/14/20 05:32 Dose: 33 mls/hr Documented by: Morphine Sulfate () 2 - 4 mg IV Q2H PRN PRN PRN Reason: Pain Score 4-10/10 Last Admin: 01/09/20 18:15 Dose: 2 mg Documented by: Morphine Sulfate () 2 - 4 mg IV Q2H PRN PRN PRN Reason: Pain Score 4-10/10 Last Admin: 01/09/20 18:10 Dose: 2 mg Documented by: Non-Formulary Medication (Teriflunomide) 14 mg PO DAILY [facility] Last Admin: 01/13/20 08:37 Dose: 14 mg Documented by: Nutritional Formula (Lactose Free) (Ensure Clear) 120 ml PO TIDCM [facility] Last Admin: 01/13/20 16:58 Dose: 120 ml Documented by: Ondansetron HCl (Zofran) 4 mg IV Q6H PRN PRN PRN Reason: NAUSEA Last Admin: 01/12/20 05:33 Dose: 4 mg Documented by: Sodium Chloride () 10 - 40 ml IV UD PRN PRN Reason: SALINE FLUSH Last Admin: 01/12/20 05:43 Dose: 10 ml Documented by: Medical Necessity - Tobacco Use Smoking Status: Former smoker Tobacco Use: Cigarettes Assessment/Plan All Active Problems Perforation of sigmoid colon due to diverticulitis (Acute) 64-year-old female with diverticulitis with abscess and norovirus 1. Patient is clinically doing well. She has absolutely no abdominal pain and she tolerated clear liquid diet with 1600 cc in and no abdominal pain or increase in pain. Patient had no nausea or vomiting. She continues to be afebrile with normal vitals. She has no tenderness to palpation. Her last bout of diarrhea was approximately 7 hours ago. I will try a full liquid diet. 2. Patient is on meropenem and her white count continues to be elevated 18 but I am unsure if this is due to inflammation from the norovirus infection. I have a hard time believing that this could be due to her colon as she has no abdominal pain. I will repeat a CT scan with p.o. and IV contrast soon. Alejandro Oshea MD Pager: [facility] [address] [place] [address], [address] [place] [address] Office:
[2020-01-14 06:52] LABS: Anion Gap 4 (5-15); BUN 6 mg/dL (7-18); BUN/Creat Ratio 13.9 RATIO (10-20); Chloride 111 mmol/L (98-107); Creatinine, Serum 0.43 mg/dL (0.55-1.02); EST Glomerular Filtration Rate 157 mL/min (>60); Est Glom Filt Rate - Afr Amer 190 mL/min (>60); Estimated Creatinine Clearance 105.91 ml/min; Glucose 120 mg/dL (74-106); Sodium Level 142 mmol/L (136-145)
[2020-01-14 07:05] LABS: Differential Comment SCANNED; Platelet Estimate ADEQUATE (ADEQ)
[2020-01-14] MEDS: Ensure Clear 120 ML Liquid PO ×2 (07:40→16:48)
[2020-01-14 09:42] LABS: Pathologist Review Reviewed
--- NOTE | 2020-01-14 18:02 | PN.ID_ITS ---
Patient Problems: Active and Suspected Problems Perforation of sigmoid colon due to diverticulitis (Acute) Subjective: Feeling ok, diarrhea improving, no abd pain - Physical Exam Vitals/I&O's: Vital Signs Temp Pulse Resp BP Pulse Ox 97.9 F 87 18 152/90 H 97 01/14/20 14:00 01/14/20 16:41 01/14/20 14:00 01/14/20 14:00 01/14/20 14:00 Oxygen Flow Rate (L/min) 2 Oxygen Delivery Method Room Air Weight: 52.8 kg Body Mass Index (BMI) 21.2 Intake and Output for Last 24 Hours 01/12/20 01/13/20 01/14/20 23:59 23:59 23:59 Intake Total 2845.75 / 3195.75 4191.65 / 4191.65 1514.75 / 1514.75 Balance 2845.75 / 3195.75 4191.65 / 4191.65 1514.75 / 1514.75 General: Alert, Cooperative, No apparent distress Lungs: Clear to auscultation, Normal air movement Cardiovascular: Regular rate, Regular Rhythm Abdomen: Soft, Non Tender, Non-Distended Skin: No rashes Microbiology Past 72 Hours 01/10/20 07:00 Blood Culture (Wb) - Right Hand Blood Culture - Preliminary No growth in 48 hours. 01/10/20 06:55 Blood Culture (Wb) - Anticubital Right Blood Culture - Preli minary No growth in 48 hours. Laboratory Results 01/14/20 05:45: WBC 18.5 H, RBC 3.53 L, Hgb 10.3 L, Hct 31.2 L, MCV 88.4, MCH 29.2, MCHC 33.0, RDW Std Deviation 44.7 H, RDW Coeff of Ana Paula 14.0, Plt Count 444, MPV 9.4, Immature Gran % (Auto) 2.900 H, Neut % (Auto) 81.0 H, Lymph % (Auto) 5.2 L, Morrow % (Auto) 10.2 H, Eos % (Auto) 0.3, Baso % (Auto) 0.4, Absolute Neuts (auto) 15.0 H, Absolute Lymphs (auto) 0.97, Nucleated RBC % 0.1, Differential Comment SCANNED, Diff Path Review Reviewed, Platelet Estimate ADEQUATE 01/14/20 05:45: Sodium 142, Potassium 3.0 L, Chloride 111 H, Carbon Dioxide 27.0, Anion Gap 4 L, BUN 6 L, Creatinine 0.43 L, Estim Creat Clear Calc 105.91, Est GFR (MDRD) Af Amer 190, Est GFR (MDRD) Non-Af 157, BUN/Creatinine Ratio 13.9, Glucose 120 H, Calcium 8.0 L, Magnesium 2.0 Current Medications Acetaminophen (Tylenol) 650 mg PO Q4H PRN PRN PRN Reason: Pain (1-1010) or Fever Last Admin: 01/13/20 20:53 Dose: 650 mg Documented by: Atorvastatin Calcium (Lipitor) 5 mg PO QODAY@2200 [facility] Last Admin: 01/13/20 22:34 Dose: 5 mg Documented by: Enoxaparin Sodium (Lovenox) 40 mg SC DAILY [facility] Last Admin: 01/09/20 11:12 Dose: 40 mg Documented by: Lactated Ringer's () 1,000 mls @ 20 mls/hr IV .Q48H [facility] Last Infusion: 01/14/20 17:33 Dose: 20 mls/hr Documented by: Pantoprazole Sodium 40 mg/ (Sodium Chloride) 110 mls @ 330 mls/hr IV Q24 [facility] Last Infusion: 01/14/20 10:27 Dose: Infused Documented by: Sodium Chloride () 250 mls @ 15 mls/hr IV .[id number] PRN PRN Reason: Saline Flush Last Infusion: 01/14/20 17:33 Dose: 0 mls/hr Documented by: Sodium Chloride () 250 mls @ 15 mls/hr IV .[id number] PRN PRN Reason: Additional IVPB Infusion Last Infusion: 01/14/20 03:22 Dose: Infused Documented by: Meropenem 1 gm/ Sodium (Chloride) 120 mls @ 33 mls/hr IV Q8 [facility] Last Infusion: 01/14/20 17:24 Dose: Infused Documented by: Morphine Sulfate () 2 - 4 mg IV Q2H PRN PRN PRN Reason: Pain Score 4-10/10 Last Admin: 01/09/20 18:15 Dose: 2 mg Documented by: Morphine Sulfate () 2 - 4 mg IV Q2H PRN PRN PRN Reason: Pain Score 4-10/10 Last Admin: 01/09/20 18:10 Dose: 2 mg Documented by: Non-Formulary Medication (Teriflunomide) 14 mg PO DAILY [facility] Last Admin: 01/14/20 07:40 Dose: 14 mg Documented by: Nutritional Formula (Lactose Free) (Ensure Clear) 120 ml PO TIDCM [facility] Last Admin: 01/14/20 16:48 Dose: 120 ml Documented by: Ondansetron HCl (Zofran) 4 mg IV Q6H PRN PRN PRN Reason: NAUSEA Last Admin: 01/12/20 05:33 Dose: 4 mg Documented by: Sodium Chloride () 10 - 40 ml IV UD PRN PRN Reason: SALINE FLUSH Last Admin: 01/12/20 05:43 Dose: 10 ml Documented by: Medical Necessity - Tobacco Use Smoking Status: Former smoker Tobacco Use: Cigarettes Route of nutrition/ use of supplements: [] Nutritional Intake: [] IV Site: [] Barrera Catheter: [] - Assessment/Plan Antibiotics: [] Assessment/Plan: [] Active and Suspected Problems Perforation of sigmoid colon due to diverticulitis (Acute) Had rising wbc despite IV abx. Now with diarrhea and norovirus (+). No fever and minimal abd pain currently. Diarrhea still present but slowed somewhat. Wbc stable today, changed zosyn to meropenem 01/11. Will follow
[2020-01-14] MEDS: 0.9% Saline Lock 10 ML Syringe IV (21:11)
[2020-01-15] VITALS (12 sets, daily range): BP systolic 134–158; BP diastolic 70–81; PULSE 81–107; RESP 16–18; TEMP 36.7–37.3; O2SAT 97–98
[2020-01-15] MEDS: 0.9% Saline Lock 10 ML Syringe IV (06:15)
[2020-01-15] MEDS: Ensure Clear 120 ML Liquid PO ×3 (08:24→18:21)
--- NOTE | 2020-01-15 09:08 | PN.SURG_ITS ---
Patient Problems: Active and Suspected Problems Perforation of sigmoid colon due to diverticulitis (Acute) Subjective: Patient not complaining of pain this morning. Still having loose diarrhea stools. Objective: Abdomen is soft nontender. - Physical Exam Vitals/I&O's: Vital Signs Temp Pulse Resp BP Pulse Ox 98.2 F 81 16 158/78 H 98 01/15/20 08:28 01/15/20 08:28 01/15/20 08:28 01/15/20 08:28 01/15/20 08:28 Oxygen Flow Rate (L/min) 2 Oxygen Delivery Method Room Air Weight: 116 lb 6.465 oz Body Mass Index (BMI) 21.2 Intake and Output for Last 24 Hours 01/13/20 01/14/20 01/15/20 23:59 23:59 23:59 Intake Total 4191.65 / 4191.65 1588.75 / 1788.75 544.67 / 544.67 Balance 4191.65 / 4191.65 1588.75 / 1788.75 544.67 / 544.67 Microbiology Past 72 Hours 01/10/20 07:00 Blood Culture (Wb) - Right Hand Blood Culture - Final No growth in 5 days. 01/10/20 06:55 Blood Culture (Wb) - Anticubital Right Blood Culture - Final No growth in 5 days. Laboratory Results 01/14/20 05:45: Diff Path Review Reviewed Current Medications Acetaminophen (Tylenol) 650 mg PO Q4H PRN PRN PRN Reason: Pain (1-08/12) or Fever Last Admin: 01/13/20 20:53 Dose: 650 mg Documented by: Atorvastatin Calcium (Lipitor) 5 mg PO QODAY@2200 [facility] Last Admin: 01/13/20 22:34 Dose: 5 mg Documented by: Enoxaparin Sodium (Lovenox) 40 mg SC DAILY [facility] Last Admin: 01/09/20 11:12 Dose: 40 mg Documented by: Lactated Ringer's () 1,000 mls @ 20 mls/hr IV .Q48H [facility] Last Infusion: 01/15/20 06:19 Dose: 0 mls/hr Documented by: Pantoprazole Sodium 40 mg/ (Sodium Chloride) 110 mls @ 330 mls/hr IV Q24 [facility] Last Infusion: 01/14/20 10:27 Dose: Infused Documented by: Sodium Chloride () 250 mls @ 15 mls/hr IV .[id number] PRN PRN Reason: Saline Flush Last Infusion: 01/14/20 17:33 Dose: 0 mls/hr Documented by: Sodium Chloride () 250 mls @ 15 mls/hr IV .[id number] PRN PRN Reason: Additional IVPB Infusion Last Infusion: 01/14/20 03:22 Dose: Infused Documented by: Meropenem 1 gm/ Sodium (Chloride) 120 mls @ 33 mls/hr IV Q8 [facility] Last Admin: 01/15/20 06:18 Dose: 33 mls/hr Documented by: Morphine Sulfate () 2 - 4 mg IV Q2H PRN PRN PRN Reason: Pain Score 4-10/10 Last Admin: 01/09/20 18:15 Dose: 2 mg Documented by: Morphine Sulfate () 2 - 4 mg IV Q2H PRN PRN PRN Reason: Pain Score 4-10/10 Last Admin: 01/09/20 18:10 Dose: 2 mg Documented by: Non-Formulary Medication (Teriflunomide) 14 mg PO DAILY [facility] Last Admin: 01/14/20 07:40 Dose: 14 mg Documented by: Nutritional Formula (Lactose Free) (Ensure Clear) 120 ml PO TIDCM [facility] Last Admin: 01/15/20 08:24 Dose: 120 ml Documented by: Ondansetron HCl (Zofran) 4 mg IV Q6H PRN PRN PRN Reason: NAUSEA Last Admin: 01/12/20 05:33 Dose: 4 mg Documented by: Sodium Chloride () 10 - 40 ml IV UD PRN PRN Reason: SALINE FLUSH Last Admin: 01/15/20 06:15 Dose: 10 ml Documented by: Medical Necessity - Tobacco Use Smoking Status: Former smoker Tobacco Use: Cigarettes Assessment/Plan All Active Problems Perforation of sigmoid colon due to diverticulitis (Acute) White count still remains elevated. Going to advance her diet to mechanical soft. Continue on antibiotics at this time.
[2020-01-15] MEDS: Potassium Chloride 10mEq/100mL 10 MEQ/100 ML IV.SOLN. 90 MEQ IV BOLUS ×4 (10:26→14:51)
[2020-01-15] MEDS: Atorvastatin Calcium 10 MG Tablet 5 MG PO (22:10)
[2020-01-15] MEDS: Lactated Ringers 1,000 ML 20 ML IV (22:14)
[2020-01-16] VITALS (9 sets, daily range): BP systolic 144–148; BP diastolic 74–78; PULSE 80–102; RESP 16–18; TEMP 36.8–37.2; O2SAT 94–98
[2020-01-16] MEDS: 0.9% Saline Lock 10 ML Syringe IV ×3 (03:22→21:35)
[2020-01-16] MEDS: Ensure Clear 120 ML Liquid PO ×3 (08:32→17:14)
[2020-01-16 09:26] LABS: Absolute Lymphocyte Count 0.73 X10^3/uL (0.83-4.51); Absolute Neutrophil Count 9.4 X10^3/uL (2.0-7.7); Basophil# 0.07 X10^3/uL; Basophil% 0.6 % (0-1); Eosinophil# 0.21 X10^3/uL; Eosinophils% 1.7 % (0-5); Hematocrit 35.4 % (37-47); Hemoglobin 11.4 g/dL (12.0-15.0); Lymphocyte # 0.73 X10^3/ul (4.0); Mean Corp Hgb Conc 32.2 g/dL (32-36); Mean Corpuscular Hgb 28.9 pg (27.0-32.0); Mean Corpuscular Volume 89.6 fL (81-99); Mean Platelet Vol. 9.1 fl (6.2-12.0); Monocyte# 1.46 X10^3/uL; NRBC Flagged by Analyzer 0 % (0-5); Neutrophil # 9.42 X10^3/uL (2.7-7.7); Neutrophil % 77.7 % (47-70); Platelet Count 513 K/mm3 (150-450); RBC Distribution Width CV 14.4 % (11.6-14.6); RBC Distribution Width SD 46.7 fl (35.1-43.9); Red Blood Count 3.95 M/mm3 (4.2-5.4); White Blood Count 12.1 K/mm3 (4.4-11.0)
--- NOTE | 2020-01-16 09:51 | PCM.PN.SRG ---
Patient Problems: Active and Suspected Problems Perforation of sigmoid colon due to diverticulitis (Acute) - Physical Exam Vitals/I&O's: Vital Signs Temp Pulse Resp BP Pulse Ox 98.9 F 90 18 144/74 H 98 01/16/20 08:37 01/16/20 08:37 01/16/20 08:37 01/16/20 08:37 01/16/20 08:37 Oxygen Flow Rate (L/min) 2 Oxygen Delivery Method Room Air Weight: 116 lb 6.465 oz Body Mass Index (BMI) 21.2 Intake and Output for Last 24 Hours 01/14/20 01/15/20 01/16/20 23:59 23:59 23:59 Intake Total 1588.75 / 1788.75 3115.00 / 3115.00 462.33 / 462.33 Balance 1588.75 / 1788.75 3115.00 / 3115.00 462.33 / 462.33 Abdomen: Bowel Sounds Present, Soft, Non Tender, Non-Distended Microbiology Past 72 Hours 01/10/20 07:00 Blood Culture (Wb) - Right Hand Blood Culture - Final No growth in 5 days. 01/10/20 06:55 Blood Culture (Wb) - Anticubital Right Blood Culture - Final No growth in 5 days. Laboratory Results 01/16/20 08:50: WBC 12.1 H, RBC 3.95 L, Hgb 11.4 L, Hct 35.4 L, MCV 89.6, MCH 28.9, MCHC 32.2, RDW Std Deviation 46.7 H, RDW Coeff of Ana Paula 14.4, Plt Count 513 H, MPV 9.1, Immature Gran % (Auto) 2.000 H, Neut % (Auto) 77.7 H, Lymph % (Auto) 6.0 L, Stevens % (Auto) 12.0 H, Eos % (Auto) 1.7, Baso % (Auto) 0.6, Absolute Neuts (auto) 9.4 H, Absolute Lymphs (auto) 0.73 L, Nucleated RBC % 0 01/16/20 08:50: Sodium Pending, Potassium Pending, Chloride Pending, Carbon Dioxide Pending, Anion Gap Pending, BUN Pending, Creatinine Pending, Est GFR (MDRD) Af Amer Pending, Est GFR (MDRD) Non-Af Pending, BUN/Creatinine Ratio Pending, Glucose Pending, Calcium Pending Current Medications Acetaminophen (Tylenol) 650 mg PO Q4H PRN PRN PRN Reason: Pain (1-1010) or Fever Last Admin: 01/13/20 20:53 Dose: 650 mg Documented by: Atorvastatin Calcium (Lipitor) 5 mg PO QODAY@2200 [facility] Last Admin: 01/15/20 22:10 Dose: 5 mg Documented by: Enoxaparin Sodium (Lovenox) 40 mg SC DAILY [facility] Last Admin: 01/09/20 11:12 Dose: 40 mg Documented by: Lactated Ringer's () 1,000 mls @ 20 mls/hr IV .Q48H [facility] Last Infusion: 01/16/20 06:26 Dose: 0 mls/hr Documented by: Pantoprazole Sodium 40 mg/ (Sodium Chloride) 110 mls @ 330 mls/hr IV Q24 [facility] Last Infusion: 01/15/20 10:44 Dose: Infused Documented by: Sodium Chloride () 250 mls @ 15 mls/hr IV .[id number] PRN PRN Reason: Saline Flush Last Infusion: 01/14/20 17:33 Dose: 0 mls/hr Documented by: Sodium Chloride () 250 mls @ 15 mls/hr IV .[id number] PRN PRN Reason: Additional IVPB Infusion Last Infusion: 01/14/20 03:22 Dose: Infused Documented by: Meropenem 1 gm/ Sodium (Chloride) 120 mls @ 33 mls/hr IV Q8 [facility] Last Admin: 01/16/20 06:26 Dose: 33 mls/hr Documented by: Morphine Sulfate () 2 - 4 mg IV Q2H PRN PRN PRN Reason: Pain Score 4-10/10 Last Admin: 01/09/20 18:15 Dose: 2 mg Documented by: Morphine Sulfate () 2 - 4 mg IV Q2H PRN PRN PRN Reason: Pain Score 4-10/10 Last Admin: 01/09/20 18:10 Dose: 2 mg Documented by: Non-Formulary Medication (Teriflunomide) 14 mg PO DAILY [facility] Last Admin: 01/15/20 10:24 Dose: 14 mg Documented by: Nutritional Formula (Lactose Free) (Ensure Clear) 120 ml PO TIDCM [facility] Last Admin: 01/16/20 08:32 Dose: 120 ml Documented by: Ondansetron HCl (Zofran) 4 mg IV Q6H PRN PRN PRN Reason: NAUSEA Last Admin: 01/12/20 05:33 Dose: 4 mg Documented by: Sodium Chloride () 10 - 40 ml IV UD PRN PRN Reason: SALINE FLUSH Last Admin: 01/16/20 06:26 Dose: 10 ml Documented by: Medical Necessity - Tobacco Use Smoking Status: Former smoker Tobacco Use: Cigarettes Assessment/Plan All Active Problems Perforation of sigmoid colon due to diverticulitis (Acute) We will see how patient does for today more than likely will hopefully be able to discharge her tomorrow.
[2020-01-16 10:17] LABS: Anion Gap 5 (5-15); BUN 6 mg/dL (7-18); BUN/Creat Ratio 11.1 RATIO (10-20); Calcium,Total 8.3 mg/dL (8.5-10.1); Chloride 109 mmol/L (98-107); Creatinine, Serum 0.54 mg/dL (0.55-1.02); EST Glomerular Filtration Rate 121 mL/min (>60); Est Glom Filt Rate - Afr Amer 146 mL/min (>60); Estimated Creatinine Clearance 84.34 ml/min; Glucose 98 mg/dL (74-106); Potassium 3.7 mmol/L (3.5-5.1); Sodium Level 139 mmol/L (136-145)
[2020-01-17] MEDS: 0.9% Saline Lock 10 ML Syringe IV ×2 (02:29→05:28)
[2020-01-17 02:33] VITALS: BP 131/74; PULSE 87; RESP 17; TEMP 36.6; O2SAT 97
[2020-01-17 03:59] VITALS: PULSE 74
[2020-01-17 08:01] VITALS: BP 136/71; PULSE 83; RESP 18; TEMP 36.7; O2SAT 97
[2020-01-17 08:05] VITALS: PULSE 86
--- NOTE | 2020-01-17 08:29 | NURSING ---
pt reports that she believes diarrhea is associated with merrem atb. Reports increase with and after infusion.
--- NOTE | 2020-01-17 09:28 | PN.SURG_ITS ---
Patient Problems: Active and Suspected Problems Perforation of sigmoid colon due to diverticulitis (Acute) Subjective: Patient evaluated resting comfortably in bed. She denies nausea, vomiting. She is tolerating a regular diet. She continues to have diarrhea. She believes this is due to the antibiotic. She is ready to go home. - Physical Exam Vitals/I&O's: Vital Signs Temp Pulse Resp BP Pulse Ox 98.0 F 86 18 136/71 H 97 01/17/20 08:01 01/17/20 08:05 01/17/20 08:01 01/17/20 08:01 01/17/20 08:01 Oxygen Flow Rate (L/min) 2 Oxygen Delivery Method Room Air Weight: 116 lb 6.465 oz Body Mass Index (BMI) 21.2 Intake and Output for Last 24 Hours 01/15/20 01/16/20 01/17/20 23:59 23:59 23:59 Intake Total 3115.00 / 3115.00 1885.66 / 1885.66 954.67 / 954.67 Output Total 400 / 400 Balance 3115.00 / 3115.00 1885.66 / 1885.66 554.67 / 554.67 General: Alert, Oriented x3, Cooperative Abdomen: Bowel Sounds Present, Soft, Non Tender Microbiology Past 72 Hours 01/16/20 23:30 Stool C. difficile DNA Amplification - Final 01/10/20 07:00 Blood Culture (Wb) - Right Hand Blood Culture - Final No growth in 5 days. 01/10/20 06:55 Blood Culture (Wb) - Anticubital Right Blood Culture - Final No growth in 5 days. Laboratory Results 01/16/20 08:50: Sodium 139, Potassium 3.7, Chloride 109 H, Carbon Dioxide 25.0, Anion Gap 5, BUN 6 L, Creatinine 0.54 L, Estim Creat Clear Calc 84.34, Est GFR (MDRD) Af Amer 146, Est GFR (MDRD) Non-Af 121, BUN/Creatinine Ratio 11.1, Glucose 98, Calcium 8.3 L Current Medications Acetaminophen (Tylenol) 650 mg PO Q4H PRN PRN PRN Reason: Pain (1-10/10) or Fever Last Admin: 01/13/20 20:53 Dose: 650 mg Documented by: Atorvastatin Calcium (Lipitor) 5 mg PO QODAY@2200 [facility] Last Admin: 01/15/20 22:10 Dose: 5 mg Documented by: Enoxaparin Sodium (Lovenox) 40 mg SC DAILY [facility] Last Admin: 01/09/20 11:12 Dose: 40 mg Documented by: Lactated Ringer's () 1,000 mls @ 20 mls/hr IV .Q48H [facility] Last Infusion: 01/17/20 05:28 Dose: 0 mls/hr Documented by: Pantoprazole Sodium 40 mg/ (Sodium Chloride) 110 mls @ 330 mls/hr IV Q24 [facility] Last Infusion: 01/16/20 11:15 Dose: Infused Documented by: Sodium Chloride () 250 mls @ 15 mls/hr IV .[id number] PRN PRN Reason: Saline Flush Last Infusion: 01/14/20 17:33 Dose: 0 mls/hr Documented by: Sodium Chloride () 250 mls @ 15 mls/hr IV .[id number] PRN PRN Reason: Additional IVPB Infusion Last Infusion: 01/14/20 03:22 Dose: Infused Documented by: Meropenem 1 gm/ Sodium (Chloride) 120 mls @ 33 mls/hr IV Q8 [facility] Last Admin: 01/17/20 05:28 Dose: 33 mls/hr Documented by: Morphine Sulfate () 2 - 4 mg IV Q2H PRN PRN PRN Reason: Pain Score 4-10/10 Last Admin: 01/09/20 18:15 Dose: 2 mg Documented by: Morphine Sulfate () 2 - 4 mg IV Q2H PRN PRN PRN Reason: Pain Score 4-10/10 Last Admin: 01/09/20 18:10 Dose: 2 mg Documented by: Non-Formulary Medication (Teriflunomide) 14 mg PO DAILY [facility] Last Admin: 01/16/20 10:55 Dose: 14 mg Documented by: Nutritional Formula (Lactose Free) (Ensure Clear) 120 ml PO TIDCM [facility] Last Admin: 01/17/20 08:10 Dose: Not Given Documented by: Ondansetron HCl (Zofran) 4 mg IV Q6H PRN PRN PRN Reason: NAUSEA Last Admin: 01/12/20 05:33 Dose: 4 mg Documented by: Sodium Chloride () 10 - 40 ml IV UD PRN PRN Reason: SALINE FLUSH Last Admin: 01/17/20 05:28 Dose: 10 ml Documented by: Medical Necessity - Tobacco Use Smoking Status: Former smoker Tobacco Use: Cigarettes Assessment/Plan All Active Problems Perforation of sigmoid colon due to diverticulitis (Acute) I am following in conjunction with Dr. De La Cruz in Dr. Oshea's absence Diverticulitis with abscess Tolerating diet Awaiting enteric path for repeat stool culture ?Does patient need to continue antibiotic at discharge Do not take antidiarrheal for diarrhea at home Patient to follow-up with Dr. Oshea in 1 week to discuss plan of care moving forward Probable discharge today Inpatient E&M: [id number] Subs Hosp L1
--- NOTE | 2020-01-17 12:27 | PCM.DC.GS ---
Discharge Diet: Light diet - advance as tolerated - Avoid nuts, seeds, popcorn Discharge Activity: Return to Normal Activity May shower in (days): 1 Call your doctor if your incision/area has: Increased Pain/ Swelling Additional Instructions: Outpatient antibiotic regimen per infectious disease Allergies/Adverse Reactions: Allergies No Known Allergies Allergy (Verified 01/07/20 19:42) Medications to take at Discharge Rosuvastatin Calcium [Crestor] 2.5 mg PO QODAY 01/07/20 Teriflunomide [Aubagio] 14 mg PO DAILY 01/07/20 Calcium Citrate/Vitamin D2 [Quan-Citrate Plus Vitamin D Tab] 1 ea PO DAILY 01/08/20 Multivitamin [Multiple Vitamins] 1 ea PO DAILY 01/08/20 Primary Care Physician: Laura Mcnamara NP-C [Primary Care Provider] - Test Results: Test results from this visit will be discussed in further detail at your follow-up appointment, if applicable. Please Follow Up With: Alejandro Oshea MD - [phone] When: 14 days Proposed Discharge Date: 01/17/20
--- NOTE | 2020-01-17 12:39 | PCM.DC.SUM ---
Discharge Date and Diagnosis - Problem List Patient Problems: Active and Suspected Problems Perforation of sigmoid colon due to diverticulitis (Acute) Date of Admission: 01/08/20 Date of Discharge: 01/17/20 - Primary Discharge Diagnosis Active and Suspected Problems Perforation of sigmoid colon due to diverticulitis (Acute) Norovirus Hospital Course and Treatment Operations: None Summary of Care Provided: The patient is a 64 year old F who presented with lower abdominal pain. CT scan was noted to have perforated sigmoid diverticulitis and tested positive for the norovirus. Patient was treated with conservative treatment. She has continued to receive IV antibiotics throughout her whole hospitalization and has been responding well. Upon discharge, patient denies nausea, vomiting. She is tolerating her diet well. She continues to note diarrhea. She believes this may be due to the IV antibiotics. Infectious disease will plan to continue IV antibiotics as an outpatient. Patient Problems: Active and Suspected Problems Perforation of sigmoid colon due to diverticulitis (Acute) - Physical Exam Vitals/I&O's: Vital Signs Temp Pulse Resp BP Pulse Ox 98.0 F 86 18 136/71 H 97 01/17/20 08:01 01/17/20 08:05 01/17/20 08:01 01/17/20 08:01 01/17/20 08:01 Oxygen Flow Rate (L/min) 2 Oxygen Delivery Method Room Air Weight: 256 lb 1.423 oz Body Mass Index (BMI) 21.2 Intake and Output for Last 24 Hours 01/15/20 01/16/20 01/17/20 23:59 23:59 23:59 Intake Total 3115.00 / 3115.00 1885.66 / 1885.66 1184.67 / 1184.67 Output Total 400 / 400 Balance 3115.00 / 3115.00 1885.66 / 1885.66 784.67 / 784.67 Microbiology Past 72 Hours 01/16/20 23:30 Stool Enteric Bacteriology - Final 01/16/20 23:30 Stool C. difficile DNA Amplification - Final 01/10/20 07:00 Blood Culture (Wb) - Right Hand Blood Culture - Final No growth in 5 days. 01/10/20 06:55 Blood Culture (Wb) - Anticubital Right Blood Culture - Final No growth in 5 days. Current Medications Acetaminophen (Tylenol) 650 mg PO Q4H PRN PRN PRN Reason: Pain (1-10/10) or Fever Last Admin: 01/13/20 20:53 Dose: 650 mg Documented by: Atorvastatin Calcium (Lipitor) 5 mg PO QODAY@2200 [facility] Last Admin: 01/15/20 22:10 Dose: 5 mg Documented by: Enoxaparin Sodium (Lovenox) 40 mg SC DAILY [facility] Last Admin: 01/09/20 11:12 Dose: 40 mg Documented by: Lactated Ringer's () 1,000 mls @ 20 mls/hr IV .Q48H [facility] Last Infusion: 01/17/20 05:28 Dose: 0 mls/hr Documented by: Pantoprazole Sodium 40 mg/ (Sodium Chloride) 110 mls @ 330 mls/hr IV Q24 [facility] Last Infusion: 01/17/20 10:14 Dose: Infused Documented by: Sodium Chloride () 250 mls @ 15 mls/hr IV .[id number] PRN PRN Reason: Saline Flush Last Infusion: 01/14/20 17:33 Dose: 0 mls/hr Documented by: Sodium Chloride () 250 mls @ 15 mls/hr IV .[id number] PRN PRN Reason: Additional IVPB Infusion Last Infusion: 01/14/20 03:22 Dose: Infused Documented by: Meropenem 1 gm/ Sodium (Chloride) 120 mls @ 33 mls/hr IV Q8 [facility] Last Infusion: 01/17/20 09:07 Dose: Infused Documented by: Morphine Sulfate () 2 - 4 mg IV Q2H PRN PRN PRN Reason: Pain Score 4-10/10 Last Admin: 01/09/20 18:15 Dose: 2 mg Documented by: Morphine Sulfate () 2 - 4 mg IV Q2H PRN PRN PRN Reason: Pain Score 4-10/10 Last Admin: 01/09/20 18:10 Dose: 2 mg Documented by: Non-Formulary Medication (Teriflunomide) 14 mg PO DAILY [facility] Last Admin: 01/17/20 09:54 Dose: 14 mg Documented by: Nutritional Formula (Lactose Free) (Ensure Clear) 120 ml PO TIDCM [facility] Last Admin: 01/17/20 08:10 Dose: Not Given Documented by: Ondansetron HCl (Zofran) 4 mg IV Q6H PRN PRN PRN Reason: NAUSEA Last Admin: 01/12/20 05:33 Dose: 4 mg Documented by: Sodium Chloride () 10 - 40 ml IV UD PRN PRN Reason: SALINE FLUSH Last Admin: 01/17/20 05:28 Dose: 10 ml Documented by: Discharge Diet: Light diet - advance as tolerated - Avoid nuts, seeds, popcorn Discharge Activity: Return to Normal Activity May shower in (days): 1 Call your doctor if your incision/area has: Increased Pain/ Swelling Home Medications: Medications to take at Discharge Rosuvastatin Calcium [Crestor] 2.5 mg PO QODAY 01/07/20 Teriflunomide [Aubagio] 14 mg PO DAILY 01/07/20 Calcium Citrate/Vitamin D2 [Quan-Citrate Plus Vitamin D Tab] 1 ea PO DAILY 01/08/20 Multivitamin [Multiple Vitamins] 1 ea PO DAILY 01/08/20 Primary Care Physician: Laura Mcnamara NP-C [Primary Care Provider] - Please Follow Up With: Alejandro Oshea MD - [phone] When: 14 days Additional Instructions: Outpatient antibiotic regimen per infectious disease Disposition: Home Patient Condition:: Stable Medical Necessity - Tobacco Use Smoking Status: Former smoker Tobacco Use: Cigarettes Meaningful Use Info Meaningful Use Diagnoses (Choose all that apply): None applicable Inpatient E&M: 97282 Disch Hosp
[2020-01-17 13:36] VITALS: BP 133/88; PULSE 78; RESP 18; TEMP 36.8; O2SAT 99
[2020-01-17 14:01] VITALS: PULSE 83
--- NOTE | 2020-01-17 15:23 | CASEMGMT ---
APPLE OREILLY updated that patient will need IV ATB at discharge. APPLE OREILLY in to discuss discharge planning needs with patient. Patient would like IV ATBs at home with C. APPLE OREILLY provided list of HHC and Infusion agencies to patient and she would like [facility] and [facility]. APPLE OREILLY sent referral to [facility] and they are able to accept the patient for 1400 start of care for 01/18/20. APPLE OREILLY sent referral and called [place] and confirmed start of care for tomorrow 01/18/20 at 1400. Patient to get first dose now and can discharge later today, APPLE OREILLY updated [facility] updated of discharge today and to call patient's confirmed cell number on face sheet regarding financial cost. APPLE OREILLY updated patient regarding discharge planning and voiced understanding. APPLE OREILLY will follow-up with [facility] and [facility] in the am to confirm setup.
--- NOTE | 2020-01-17 15:54 | PCM.PN.ID ---
Patient Problems: Active and Suspected Problems Perforation of sigmoid colon due to diverticulitis (Acute) Subjective: Feeling better, no abd pain, no fever. Still some diarrhea after doses of abx. - Physical Exam Vitals/I&O's: Vital Signs Temp Pulse Resp BP Pulse Ox 98.3 F 83 18 133/88 H 99 01/17/20 13:36 01/17/20 14:01 01/17/20 13:36 01/17/20 13:36 01/17/20 13:36 Oxygen Flow Rate (L/min) 2 Oxygen Delivery Method Room Air Weight: 52.8 kg Body Mass Index (BMI) 21.2 Intake and Output for Last 24 Hours 01/15/20 01/16/20 01/17/20 23:59 23:59 23:59 Intake Total 3115.00 / 3115.00 1885.66 / 1885.66 / Output Total 400 / 400 Balance 3115.00 / 3115.00 1885.66 / 1885.66 1584.67 / 1584.67 General: Alert, Cooperative, No apparent distress Lungs: Clear to auscultation, Normal air movement Cardiovascular: Regular rate, Regular Rhythm Abdomen: Soft, Non Tender, Non-Distended Skin: No rashes Microbiology Past 72 Hours 01/16/20 23:30 Stool Enteric Bacteriology - Final 01/16/20 23:30 Stool C. difficile DNA Amplification - Final 01/10/20 07:00 Blood Culture (Wb) - Right Hand Blood Culture - Final No growth in 5 days. 01/10/20 06:55 Blood Culture (Wb) - Anticubital Right Blood Culture - Final No growth in 5 days. Current Medications Acetaminophen (Tylenol) 650 mg PO Q4H PRN PRN PRN Reason: Pain (1-08/12) or Fever Last Admin: 01/13/20 20:53 Dose: 650 mg Documented by: Atorvastatin Calcium (Lipitor) 5 mg PO QODAY@2200 [facility] Last Admin: 01/15/20 22:10 Dose: 5 mg Documented by: Enoxaparin Sodium (Lovenox) 40 mg SC DAILY [facility] Last Admin: 01/09/20 11:12 Dose: 40 mg Documented by: Lactated Ringer's () 1,000 mls @ 20 mls/hr IV .Q48H [facility] Last Admin: 01/17/20 13:27 Dose: Not Given Documented by: Pantoprazole Sodium 40 mg/ (Sodium Chloride) 110 mls @ 330 mls/hr IV Q24 [facility] Last Infusion: 01/17/20 10:14 Dose: Infused Documented by: Sodium Chloride () 250 mls @ 15 mls/hr IV .[id number] PRN PRN Reason: Saline Flush Last Infusion: 01/14/20 17:33 Dose: 0 mls/hr Documented by: Sodium Chloride () 250 mls @ 15 mls/hr IV .[id number] PRN PRN Reason: Additional IVPB Infusion Last Infusion: 01/14/20 03:22 Dose: Infused Documented by: Ertapenem 1 gm/ Sodium (Chloride) 60 mls @ 100 mls/hr IV Q24 [facility] Morphine Sulfate () 2 - 4 mg IV Q2H PRN PRN PRN Reason: Pain Score 4-10/10 Last Admin: 01/09/20 18:15 Dose: 2 mg Documented by: Morphine Sulfate () 2 - 4 mg IV Q2H PRN PRN PRN Reason: Pain Score 4-10/10 Last Admin: 01/09/20 18:10 Dose: 2 mg Documented by: Non-Formulary Medication (Teriflunomide) 14 mg PO DAILY [facility] Last Admin: 01/17/20 09:54 Dose: 14 mg Documented by: Nutritional Formula (Lactose Free) (Ensure Clear) 120 ml PO TIDCM [facility] Last Admin: 01/17/20 13:35 Dose: Not Given Documented by: Ondansetron HCl (Zofran) 4 mg IV Q6H PRN PRN PRN Reason: NAUSEA Last Admin: 01/12/20 05:33 Dose: 4 mg Documented by: Sodium Chloride () 10 - 40 ml IV UD PRN PRN Reason: SALINE FLUSH Last Admin: 01/17/20 05:28 Dose: 10 ml Documented by: Medical Necessity - Tobacco Use Smoking Status: Former smoker Tobacco Use: Cigarettes Route of nutrition/ use of supplements: [] Nutritional Intake: [] IV Site: [] Barrera Catheter: [] - Assessment/Plan Antibiotics: [] Assessment/Plan: [] Active and Suspected Problems Perforation of sigmoid colon due to diverticulitis (Acute) Had rising wbc despite IV abx. Now with diarrhea and norovirus (+). No fever and minimal abd pain currently. Diarrhea still present but much improved. Wbc nearly normalized after changed zosyn to meropenem 01/11. Ok for d/c home on ertapenem 1gm q24h with stop date 01/22/20, wrote rx, ID followup prn, she is to monitor for fever, abd pain, worsening diarrhea. Will follow, d/w case filler
== END 2020-01-17 18:07 | disposition home or self-care (01) | DRG 392 ==
LOC: ED 01-08 00:03 → MS3 01-08 00:40
PROVIDERS: Surgery; Admitting Provider Surgery; Emergency Provider Emergency Medicine; PCP Nurse Practitioner; Visit Provider Surgery
DX: K57.20 Diverticulitis of large intestine with perforation and abscess without bleeding (principal); A08.11 Acute gastroenteropathy due to Norwalk agent; N39.0 Urinary tract infection, site not specified; Z87.891 Personal history of nicotine dependence; B96.20 Unspecified Escherichia coli [E. coli] as the cause of diseases classified elsewhere
CPT/HCPCS: 36415; 36569; 74177; 80048; 81001; 83735; 84703; 85025; 87040; 87086; 87088; 87186; 87493; 87506; 93005; 97110; 97116; 97162; 97166; 97530; 99251; 99284; J2185; J7030; J7040; J7050; J7120; Q9967; A4216; G0463; J2405

== ENCOUNTER → 2020-02-21 13:15 | Outpatient (CLI) | payer MEDICARE, BC, SELFPAY ==
[2020-01-08 01:18] VITALS: BMI 21.2
[2020-02-21 14:40] LABS: Absolute Lymphocyte Count 1.56 X10^3/uL (0.83-4.51); Basophil# 0.04 X10^3/uL; Basophil% 0.5 % (0-1); Eosinophil# 0.12 X10^3/uL; Eosinophils% 1.5 % (0-5); Hematocrit 41.1 % (37-47); Hemoglobin 12.9 g/dL (12.0-15.0); Lymphocyte # 1.56 X10^3/ul (4.0); Lymphocyte % 19.9 % (19-41); Mean Corp Hgb Conc 31.4 g/dL (32-36); Mean Corpuscular Volume 92.4 fL (81-99); Mean Platelet Vol. 10.8 fl (6.2-12.0); Monocyte# 1.13 X10^3/uL; Monocyte% 14.4 % (0-10); NRBC Flagged by Analyzer 0 % (0-5); Neutrophil # 4.96 X10^3/uL (2.7-7.7); Neutrophil % 63.3 % (47-70); Platelet Count 322 K/mm3 (150-450); RBC Distribution Width CV 14.9 % (11.6-14.6); RBC Distribution Width SD 50.5 fl (35.1-43.9); Red Blood Count 4.45 M/mm3 (4.2-5.4); White Blood Count 7.8 K/mm3 (4.4-11.0)
[2020-02-21 15:04] LABS: AST(SGOT) 30 U/L (15-37); Alanine Aminotransfer ALT/SGPT 42 U/L (13-56); Alkaline Phosphatase 57 U/L (45-117); Bilirubin, Direct 0.14 mg/dL (0.00-0.30); Globulin 3.4 g/dL (2.2-4.2); Protein, Total 7.4 g/dL (6.4-8.2)
== END ==
PROVIDERS: PCP Nurse Practitioner; Referring Provider Psychiatry & Neurology Neurology; Visit Provider Psychiatry & Neurology Neurology
DX: G35 Multiple sclerosis (principal)
CPT/HCPCS: 36415; 80076; 85025

== ENCOUNTER 2020-04-07 07:23 | Day surgery (SDC) | payer MEDICARE, BC, SELFPAY ==
--- NOTE | 2020-03-17 01:54 | HP_ITS ---
Intake Vital Signs 03/17/20 BMI 21.2 03/17/20 Height 5 ft 2 in 03/17/20 Weight: 113 lb 03/17/20 BMI 20.6 03/17/20 BP 165/85 H 03/17/20 Blood Pressure Location Rt brachial 03/17/20 Position Sitting 03/17/20 Respiration 18 03/17/20 Temp 98.3 F 03/17/20 Temp Source Temporal Intake Visit Reasons: HOSPITAL F/U 01/07 DIVERTICULITIS Chief Complaint: Abdominal pain, weakness & nausea School Aide Required: No Is patient in pain?: No Allergies No Known Allergies Allergy (Verified 03/17/20 13:24) Medications Rosuvastatin Calcium [Crestor] 2.5 mg PO QODAY 01/07/20 [History Confirmed 03/17/20] Teriflunomide [Aubagio] 14 mg PO DAILY 01/07/20 [History Confirmed 03/17/20] Calcium Citrate/Vitamin D2 [Quan-Citrate Plus Vitamin D Tab] 1 ea PO DAILY 01/08/20 [History Confirmed 03/17/20] Multivitamin [Multiple Vitamins] 1 ea PO DAILY 01/08/20 [History Confirmed 03/17/20] Ertapenem Sodium [Ertapenem] 1 gm IV DAILY #5 vial 01/17/20 [Rx Confirmed 03/17/20] PFSH Medical History Perforation of sigmoid colon due to diverticulitis (Acute) Surgical History S/P hysterectomy (Acute) Family History Mother Colon cancer Social History (Updated 03/17/20 @ 13:[address] Alejandro Oshea MD) Smoking Status: Former smoker alcohol intake: never HPI HPI HPI: SAUD SALAMANCA, is a 64 F who presents to the office today for HPI HPI Surgical H&P: Yes HPI: SAUD SALAMANCA, is a 64 F who presents to the office today for Perforated sigmoid diverticulitis. The patient is currently doing well. She is not having any nausea or vomiting or abdominal pain. She reports no blood in her stools since being discharged from the hospital. ROS General General: No weight change or fatigue Cardio Cardiovascular: No murmur, pacemaker, heart disease, atrial fibrillation, high blood pressure, heart attack, heart stent, palpitations, shortness of breat with exertion or chest pain Psych Psychiatric: No depression or anxiety Resp Respiratory: No shortness of breath, No sleep apnea, No cough, No COPD, No asthma, No emphysema, No wheezing Gastro Gastrointestinal: No abdominal pain, No nausea or vomiting, No diarrhea, No constipation, No blood in stool, No acid reflux, No hemorrhoids, No ulcers, No gallbladder problem, No black,tarry stools Additional Details: History of perforated diverticulitis Gee Hematologic: No blood thinners Neuro Neurologic: Yes other (Patient has patient has MS) Exam Const General: cooperative Orientation: alert, oriented x3 Resp Effort & Inspection: normal respiratory effort Auscultation: clear to auscultation bilaterally Cardio Rate: regular rate Rhythm: regular rhythm Heart Sounds: no murmurs GI Inspection: non-distended Palpation: soft, nontender Assessment & Plan Problems 1. Multiple sclerosis G35 2. Perforation of sigmoid colon due to diverticulitis K57.20 Plan Patient's last colonoscopy was approximately 5 years ago. I discussed conservative treatment versus sigmoid colectomy with her. She would like to pursue surgical management. I discussed laparoscopic sigmoid colectomy with her but before this is done I would like to perform a colonoscopy to ensure there is no malignancy. Patient understands and agrees to proceed. I explained endoscopy in detail to the patient. I explained the risks including but not limited to stroke or heart attack with anesthesia, perforation of the GI tract, bleeding, infection. I explained that any of these could necessitate further emergency surgery. The patient understands and all questions were answered sufficiently. The patient wishes to proceed with procedure. We discussed the current risks associated with COVID-19. While it is understood that there is a community spread of COVID-19, the risk of marlon COVID-19 while at [facility] ([facility]) is very low; however, the risk cannot be completely mitigated because of the community spread of the disease. We discussed in detail the risk of exposure to and/or potential harm posed by the COVID-19 virus with having a surgery/procedure at this time versus the risk of delaying the surgery/procedure. It is not possible to know either the risk of delaying the surgery or procedure or chance of getting an infection with perfect accuracy, but a joint decision was made to proceed at this time with the scheduled surgery/procedure as indicated on the consent form. Patient was notified that we will need to comply with any screening or testing [facility] wishes to perform or that surgery may be delayed for any positive results. Alejandro Oshea MD Pager: [facility] [address] [place] [address], [address] [place] [address] Office: Orders Orders: Colonoscopy Today K57.20 Coding Level of Care Code Off vis,est,level 3 Diagnoses Multiple sclerosis G35 Perforation of sigmoid colon due to diverticulitis K57.20 03/17/20 1185 <Electronically signed by Alejandro khalil MD> Date _ Alejandro Oshea MD I have re-examined the patient. There are no clinical changes since date of exam.
[2020-03-17 13:25] VITALS: BMI 21.2
[2020-04-06 12:12] LABS: Probe Check PASS; Specimen Processing Control PASS
[2020-04-07] VITALS (8 sets, daily range): BP systolic 130–164; BP diastolic 64–89; PULSE 58–88; RESP 15–16; TEMP 36.3–37.1; O2SAT 98–99; BMI 19.0
[2020-04-07] MEDS: Lactated Ringers 1,000 ML 100 ML IV (08:05)
--- NOTE | 2020-04-07 08:30 | COLBX_PTH ---
PATIENT: SAUD SALAMANCA LOC: EN U#:[id number] AGE/SX: 64/F ROOM: RE04/07/[address]: Dr. Alejandro Oshea MD : [id number] BED: DIS: 04/07/2020 SPEC #: [id number] RECD: 04/07/20 13:13 STATUS: LUCAS SUSHANT #: [id number] YONATAN: 04/07/20 08:[address]: Alejandro Oshea DEPT: SURGICAL PATHOLOGY RECD BY: Indra Domínguez ENTERED: 04/10/20 08:46 SP TYPE: COLON BX OTHR DR: Laura Mcnamara, RES HABILITATION ASSISTANT-C Tissues: Cecum, NOS Procedures: Surgery Specimen Level IV HEADER OPERATION: Colonoscopy (MAC) PRE-OP DIAGNOSIS: Perforation from diverticulitis TISSUE SUBMITTED: Cecum biopsy MICROSCOPIC DIAGNOSIS Cecum, biopsy: Consistent with collagenous colitis. See comment. AM:ran 6/9/20 COMMENT Trichrome stain with matched control was used in the evaluation of this case highlights the thickened basal plate. Case has been reviewed in consultation with Dr. Garcia who concurs with the above diagnosis. IDC:SJ MICROSCOPIC DESCRIPTION Slides are reviewed. GROSS DESCRIPTION Received in fixative is one container labeled with the patient's name and designated cecum biopsy. The specimen consists of one irregular fragment of light navarrete soft tissue that measures 0.2 x 0.1 x 0.1 cm. The specimen is totally submitted in one cassette. / AM:rg 04/10/20 TC:3 CPT: 37009
--- NOTE | 2020-04-07 09:13 | OP.CCLET_ITS ---
04/07/2020 Laura Mcnamara, JEAN-CLAUDE [address] [place] [address] Re : Colonoscopy procedure for Arabella Baker Dear Ms. Mcnamara This procedure was performed on Tuesday, April 07, 2020. My impressions and recommendations are as follows: Impressions : - Friability with spontaneous bleeding in the cecum. Biopsied. - Diverticulosis in the sigmoid colon. Recommendations : - Discharge patient to home. - Resume previous diet. - Continue present medications. - Await pathology results. - Repeat colonoscopy for surveillance based on pathology results. - Return to my office in 1 week. My findings are described in the full procedure note, which is enclosed. If I can be of further assistance, please feel free to contact me at Doctor phone number(s): , Work: . Sincerely, Alejandro Oshea MD 04/07/2020 9:12:35 AM This report has been signed electronically.
--- NOTE | 2020-04-07 09:13 | OP.COLON_ITS ---
Patient Name: Arabella Baker Procedure Date: 04/07/2020 8:24 AM Date of : 1955 Age: 64 Procedure: Colonoscopy Indications: Diverticulitis Providers: Alejandro Oshea MD Medicines: Monitored Anesthesia Care Patient Profile: This is a 64 year old female. Refer to note in patient chart for documentation of history and physical. Last Colonoscopy: 5 years ago. Complications: No immediate complications. Estimated blood loss: Minimal. Procedure: Pre-Anesthesia Assessment: - Prior to the procedure, a History and Physical was performed, and patient medications and allergies were reviewed. The patient's tolerance of previous anesthesia was also reviewed. The risks and benefits of the procedure and the sedation options and risks were discussed with the patient. All questions were answered, and informed consent was obtained. Prior Anticoagulants: The patient has taken no previous anticoagulant or antiplatelet agents. After reviewing the risks and benefits, the patient was deemed in satisfactory condition to undergo the procedure. After I obtained informed consent, the scope was passed under direct vision. Throughout the procedure, the patient's blood pressure, pulse, and oxygen saturations were monitored continuously. The colonoscope was introduced through the anus and advanced to the cecum, identified by appendiceal orifice and ileocecal valve. The colonoscopy was performed without difficulty. The patient tolerated the procedure well. The quality of the bowel preparation was good. Scope In: 8:40:25 AM Scope Withdrawal Time 0 hours 5 minutes 22 seconds Scope Out: 9:00:56 AM Total Procedure Duration Time 0 hours 20 minutes 31 seconds Findings: A diffuse area of friable mucosa with spontaneous bleeding was found in the cecum. There were several small tears in the mucosa circumfirentially in the cecum. No evidence of bleeding in the remainder of colon. This was biopsied with a cold forceps for histology. Multiple small-mouthed diverticula were found in the sigmoid colon. Impression: - Friability with spontaneous bleeding in the cecum. Biopsied. - Diverticulosis in the sigmoid colon. Recommendation: - Discharge patient to home. - Resume previous diet. - Continue present medications. - Await pathology results. - Repeat colonoscopy for surveillance based on pathology results. - Return to my office in 1 week. Procedure Code(s): --- Professional --- 02968, Colonoscopy, flexible; with biopsy, single or multiple Diagnosis Code(s): --- Professional --- K92.2, Gastrointestinal hemorrhage, unspecified K57.32, Diverticulitis of large intestine without perforation or abscess without bleeding K57.30, Diverticulosis of large intestine without perforation or abscess without bleeding CPT copyright 2017 [employer]. All rights reserved. The codes documented in this report are preliminary and upon explosive operator supervisor review may be revised to meet current compliance requirements. Alejandro Oshea MD 04/07/2020 9:12:35 AM This report has been signed electronically. Number of Addenda: 0 Note Initiated On: 04/07/2020 8:24 AM
--- NOTE | 2020-04-07 09:42 | PN_ITS ---
Progress Note The patient had colonoscopy today due to history of perforated diverticulitis. The patient had a tortuous sigmoid colon with diverticular stricture. The descending and transverse colon were normal but when the cecum was intubated there were a large amount of small linear tear circumferentially with bleeding. I am unsure if this is due to insufflation. Biopsy was performed of the cecum and the tissue was very friable and inflamed. I will observe the patient here for several hours and order laboratory test. I advised her that if she does go home today I would like her to stay on clear liquids only for the next 48 hours and return to the emergency room if there is any bleeding, increasing abdominal pain, nausea or vomiting or fever. I did inform the patient that if perforation did occur she would need surgery and likely ileocecectomy. The patient understands and will be observed here today. Alejandro Oshea MD Pager: [facility] [address] [place] [address], [address] [place] [address] Office: STROKE Vital Signs/Narrative: Vital Signs Temp Pulse Resp BP Pulse Ox 04/07/20 09:28 97.7 F L 70 16 151/79 H 99 04/07/20 09:23 65 16 151/89 H 98 04/07/20 09:18 68 16 141/84 H 99 04/07/20 09:13 70 16 141/70 H 98 04/07/20 09:08 97.3 F L 82 16 130/64 H 98 04/07/20 07:41 98.7 F 88 15 140/83 H 98
[2020-04-07 12:46] LABS: Absolute Lymphocyte Count 0.96 X10^3/uL (0.83-4.51); Absolute Neutrophil Count 6.5 X10^3/uL (2.0-7.7); Basophil# 0.03 X10^3/uL; Basophil% 0.4 % (0-1); Eosinophil# 0.01 X10^3/uL; Eosinophils% 0.1 % (0-5); Hematocrit 43.9 % (37-47); Hemoglobin 13.9 g/dL (12.0-15.0); Lymphocyte # 0.96 X10^3/ul (4.0); Lymphocyte % 11.3 % (19-41); Mean Corp Hgb Conc 31.7 g/dL (32-36); Mean Corpuscular Hgb 29.4 pg (27.0-32.0); Mean Platelet Vol. 10.9 fl (6.2-12.0); Monocyte# 0.92 X10^3/uL; Monocyte% 10.8 % (0-10); NRBC Flagged by Analyzer 0 % (0-5); Neutrophil # 6.52 X10^3/uL (2.7-7.7); Neutrophil % 76.8 % (47-70); Platelet Count 310 K/mm3 (150-450); RBC Distribution Width CV 13.2 % (11.6-14.6); RBC Distribution Width SD 45.1 fl (35.1-43.9); Red Blood Count 4.72 M/mm3 (4.2-5.4); White Blood Count 8.5 K/mm3 (4.4-11.0)
[2020-04-07 12:47] LABS: Prothrombin Time (Protime)PT. 12.3 SECONDS (11.7-14.9)
[2020-04-07 12:49] LABS: Partial Thromboplast Time 24.7 Seconds (24.1-36.2)
== END 2020-04-07 12:36 | disposition home or self-care (01) ==
LOC: EN 07:23 → AC 07:24
PROVIDERS: Anesthesiology; PCP Nurse Practitioner; Referring Provider Nurse Practitioner; Visit Provider Surgery
PROC: 0DJD8ZZ Inspection of Lower Intestinal Tract, Via Natural or Artificial Opening Endoscopic (ICD-10-PCS; CPT 45378; principal; 2020-04-07 08:25)
DX: K57.21 Diverticulitis of large intestine with perforation and abscess with bleeding (principal); K57.30 Diverticulosis of large intestine without perforation or abscess without bleeding; G35 Multiple sclerosis; E78.00 Pure hypercholesterolemia, unspecified; Z87.891 Personal history of nicotine dependence; Z11.59 Encounter for screening for other viral diseases
CPT/HCPCS: 45380; 85025; 85610; 85730; 87635; 88305; G2023; J7120; J2405; U0003

== ENCOUNTER 2020-04-20 05:25 | Inpatient (IN) | payer MEDICARE, BC, SELFPAY ==
--- NOTE | 2020-03-17 01:54 | HP_ITS ---
Intake Vital Signs 03/17/20 BMI 21.2 03/17/20 Height 5 ft 2 in 03/17/20 Weight: 113 lb 03/17/20 BMI 20.6 03/17/20 BP 165/85 H 03/17/20 Blood Pressure Location Rt brachial 03/17/20 Position Sitting 03/17/20 Respiration 18 03/17/20 Temp 98.3 F 03/17/20 Temp Source Temporal Intake Visit Reasons: HOSPITAL F/U 01/07 DIVERTICULITIS Chief Complaint: Abdominal pain, weakness & nausea Marketing Services Specialist Required: No Is patient in pain?: No Allergies No Known Allergies Allergy (Verified 03/17/20 13:24) Medications Rosuvastatin Calcium [Crestor] 2.5 mg PO QODAY 01/07/20 [History Confirmed 03/17/20] Teriflunomide [Aubagio] 14 mg PO DAILY 01/07/20 [History Confirmed 03/17/20] Calcium Citrate/Vitamin D2 [Quan-Citrate Plus Vitamin D Tab] 1 ea PO DAILY 01/08/20 [History Confirmed 03/17/20] Multivitamin [Multiple Vitamins] 1 ea PO DAILY 01/08/20 [History Confirmed 03/17/20] Ertapenem Sodium [Ertapenem] 1 gm IV DAILY #5 vial 01/17/20 [Rx Confirmed 03/17/20] PFSH Medical History Perforation of sigmoid colon due to diverticulitis (Acute) Surgical History S/P hysterectomy (Acute) Family History Mother Colon cancer Social History (Updated 03/17/20 @ 13:[address] Alejandro Oshea MD) Smoking Status: Former smoker alcohol intake: never HPI HPI HPI: SAUD SALAMANCA, is a 64 F who presents to the office today for HPI HPI Surgical H&P: Yes HPI: SAUD SALAMANCA, is a 64 F who presents to the office today for Perforated sigmoid diverticulitis. The patient is currently doing well. She is not having any nausea or vomiting or abdominal pain. She reports no blood in her stools since being discharged from the hospital. ROS General General: No weight change or fatigue Cardio Cardiovascular: No murmur, pacemaker, heart disease, atrial fibrillation, high blood pressure, heart attack, heart stent, palpitations, shortness of breat with exertion or chest pain Psych Psychiatric: No depression or anxiety Resp Respiratory: No shortness of breath, No sleep apnea, No cough, No COPD, No asthma, No emphysema, No wheezing Gastro Gastrointestinal: No abdominal pain, No nausea or vomiting, No diarrhea, No constipation, No blood in stool, No acid reflux, No hemorrhoids, No ulcers, No gallbladder problem, No black,tarry stools Additional Details: History of perforated diverticulitis Gee Hematologic: No blood thinners Neuro Neurologic: Yes other (Patient has patient has MS) Exam Const General: cooperative Orientation: alert, oriented x3 Resp Effort & Inspection: normal respiratory effort Auscultation: clear to auscultation bilaterally Cardio Rate: regular rate Rhythm: regular rhythm Heart Sounds: no murmurs GI Inspection: non-distended Palpation: soft, nontender Assessment & Plan Problems 1. Multiple sclerosis G35 2. Perforation of sigmoid colon due to diverticulitis K57.20 Plan Patient's last colonoscopy was approximately 5 years ago. I discussed conservative treatment versus sigmoid colectomy with her. She would like to pursue surgical management. I discussed laparoscopic sigmoid colectomy with her but before this is done I would like to perform a colonoscopy to ensure there is no malignancy. Patient understands and agrees to proceed. I explained endoscopy in detail to the patient. I explained the risks including but not limited to stroke or heart attack with anesthesia, perforation of the GI tract, bleeding, infection. I explained that any of these could necessitate further emergency surgery. The patient understands and all questions were answered sufficiently. The patient wishes to proceed with procedure. We discussed the current risks associated with COVID-19. While it is understood that there is a community spread of COVID-19, the risk of marlon COVID-19 while at [facility] ([facility]) is very low; however, the risk cannot be completely mitigated because of the community spread of the disease. We discussed in detail the risk of exposure to and/or potential harm posed by the COVID-19 virus with having a surgery/procedure at this time versus the risk of delaying the surgery/procedure. It is not possible to know either the risk of delaying the surgery or procedure or chance of getting an infection with perfect accuracy, but a joint decision was made to proceed at this time with the scheduled surgery/procedure as indicated on the consent form. Patient was notified that we will need to comply with any screening or testing [facility] wishes to perform or that surgery may be delayed for any positive results. Alejandro Oshea MD Pager: [facility] [address] [place] [address], [address] [place] [address] Office: Orders Orders: Colonoscopy Today K57.20 Coding Level of Care Code Off vis,est,level 3 Diagnoses Multiple sclerosis G35 Perforation of sigmoid colon due to diverticulitis K57.20 03/17/20 3415 <Electronically signed by Alejandro Oshea MD> Date Alejandro Oshea MD
[2020-04-13 09:47] VITALS: BMI 19.0
--- NOTE | 2020-04-13 10:32 | HP_ITS ---
Intake Vital Signs 04/13/20 Height 5 ft 2 in 04/13/20 Weight: 105 lb 04/13/20 BMI 19.2 04/13/20 BP 157/91 H 04/13/20 Blood Pressure Location Rt brachial 04/13/20 Position Sitting 04/13/20 Respiration 18 04/13/20 Pulse 78 04/13/20 Pulse Source Monitor 04/13/20 Temp 98.4 F 04/13/20 Temp Source Temporal 04/13/20 Pulse Oximetry (%) 98 04/13/20 Oxygen Delivery Method room air Intake Visit Reasons: Discuss Surgery/C-Scope Results Chief Complaint: Abdominal pain, weakness & nausea Dress Cap Maker Required: No Is patient in pain?: No Allergies No Known Allergies Allergy (Verified 04/13/20 09:43) Medications Rosuvastatin Calcium [Crestor] 2.5 mg PO QODAY 01/07/20 [History Confirmed 04/13/20] Teriflunomide [Aubagio] 14 mg PO DAILY 01/07/20 [History Confirmed 04/13/20] Calcium Citrate/Vitamin D2 [Quan-Citrate Plus Vitamin D Tab] 1 ea PO DAILY 01/08/20 [History Confirmed 04/13/20] Multivitamin [Multiple Vitamins] 1 ea PO DAILY 01/08/20 [History Confirmed 04/13/20] Ascorbic Acid/Vitamin E/Biotin [Hair Skin Nails-Biotin Gummies] 1 ea PO DAILY 04/03/20 [History Confirmed 04/13/20] PFSH Medical History Perforation of sigmoid colon due to diverticulitis (Acute) Surgical History S/P hysterectomy (Acute) Family History Mother Colon cancer Social History (Updated 04/13/20 @ 10:[address] Alejandro Oshea MD) Smoking Status: Former smoker alcohol intake: never HPI HPI HPI: SAUD SALAMANCA, is a 64 F who presents to the office today for HPI HPI Surgical H&P: Yes HPI: SAUD SALAMANCA, is a 64 F who presents to the office today for Follow-up after colonoscopy. The patient is not having any pain or issues after colonoscopy. ROS General General: No weight change or fatigue Cardio Cardiovascular: No murmur, pacemaker, heart disease, atrial fibrillation, high blood pressure, heart attack, heart stent, palpitations, shortness of breat with exertion or chest pain Psych Psychiatric: No depression or anxiety Resp Respiratory: No shortness of breath, No sleep apnea, No cough, No COPD, No asthma, No emphysema, No wheezing Gastro Gastrointestinal: No abdominal pain, No nausea or vomiting, No diarrhea, No constipation, No blood in stool, No acid reflux, No hemorrhoids, No ulcers, No gallbladder problem, No black,tarry stools Additional Details: History of perforated diverticulitis Gee Hematologic: No blood thinners Neuro Neurologic: Yes other (Patient has patient has MS) Exam Const General: cooperative Orientation: alert, oriented x3 Resp Effort & Inspection: normal respiratory effort Auscultation: clear to auscultation bilaterally Cardio Rate: regular rate Rhythm: regular rhythm Heart Sounds: no murmurs GI Inspection: non-distended Palpation: soft, nontender Assessment & Plan Problems 1. Collagenous colitis K52.831 2. Perforation of sigmoid colon due to diverticulitis K57.20 Plan The patient is here to follow-up after colonoscopy. Patient was having colonoscopy due to perforated diverticulitis and wanted to sigmoid colectomy. During the colonoscopy the patient had a very irritated right colon which easily bled and was friable. Biopsies were performed and this shows collagenous colitis. The patient also had a very tight sigmoid colon indicating sigmoid diverticular stricture. I would recommend completing the sigmoid colectomy prior to starting her on steroids for her colitis. The steroids put her at high risk for anastomotic leak. I will get her scheduled for sigmoid colectomy and then afterwards I will ask her PCP to start her on steroids when she is healed. I discussed laparoscopic sigmoid colectomy with the patient in detail. I discussed the risks including but not limited to bleeding, infection, injury to surrounding organs such as the ureter, bladder, bowels. I discussed risk of anastomotic leak and hernia as well. Patient understands all the risks and would like to proceed with laparoscopic sigmoid colectomy. We discussed the current risks associated with COVID-19. While it is understood that there is a community spread of COVID-19, the risk of marlon COVID-19 while at [facility] ([facility]) is very low; however, the risk cannot be completely mitigated because of the community spread of the disease. We discussed in detail the risk of exposure to and/or potential harm posed by the COVID-19 virus with having a surgery/procedure at this time versus the risk of delaying the surgery/procedure. It is not possible to know either the risk of delaying the surgery or procedure or chance of getting an infection with perfect accuracy, but a joint decision was made to proceed at this time with the scheduled surgery/procedure as indicated on the consent form. Patient was notified that we will need to comply with any screening or testing [facility] wishes to perform or that surgery may be delayed for any positive results. Alejandro Oshea MD Pager: [facility] [address] [place] [address], [address] [place] [address] Office: Coding Level of Care Code Off vis,est,level 3 Diagnoses Collagenous colitis K52.831 Perforation of sigmoid colon due to diverticulitis K57.20 04/13/20 1036 <Electronically signed by Alejandro khalil MD> Date _ Alejandro Oshea MD I have re-examined the patient. There are no clinical changes since date of exam.
[2020-04-20] VITALS (14 sets, daily range): BP systolic 109–167; BP diastolic 55–77; PULSE 50–91; RESP 15–16; TEMP 36.1–36.9; O2SAT 96–100; BMI 19.0
--- NOTE | 2020-04-20 | COL_PTH ---
PATIENT: SAUD SALAMANCA LOC: MS3 U#:[id number] AGE/SX: 64/F ROOM: [facility] [place] RE04/20/[address]: Dr. Alejandro Oshea MD : 1955 BED: 1 DIS: 04/22/2020 SPEC #: [id number] RECD: 04/20/20 13:32 STATUS: LUCAS REMame #: [id number] YONATAN: 04/20/20 00:[address]: Alejandro Oshea DEPT: SURGICAL PATHOLOGY RECD BY: Wes Wise ENTERED: 04/20/20 13:33 SP TYPE: COLON OTHR DR: Laura Mcnamara, JEAN-CLAUDE-C Tissues: A - Colon, NOS B - Colon Donuts C - Colon Donuts Procedures: Trichrome (control) Special Stain Group II Surgery Specimen Level III Surgery Specimen Level V HEADER OPERATION: ERAS, laparoscopic sigmoid colectomy PRE-OP DIAGNOSIS: Collagenous colitis; perforation of sigmoid colon due to diverticulitis TISSUE SUBMITTED: A - Sigmoid colon, staple line williamson distal margin, B - Distal donut, C - Proximal donut MICROSCOPIC DIAGNOSIS A. Sigmoid colon, colectomy: Diverticulosis. Lymph nodes with reactive changes. Focal acute mucosal inflammation in smaller segment of bowel. B. Distal donut: Colonic donut, no pathologic diagnosis. C. Proximal donut: Colonic donut, with focal change consistent with collagenous colitis. See comment. SJ:ran 04/24/20 COMMENT C. Trichrome stain with matched control is used in the evaluation of the specimen and show focal thickening of subepithelial collagen band. Case has been reviewed in consultation with Dr. Pickett who concurs with the above diagnosis. IDC:AM MICROSCOPIC DESCRIPTION Slides are reviewed. GROSS DESCRIPTION A - Received in fixative is one container labeled with the patient's name and designated sigmoid colon. The specimen consists of two segments of bowel. One segment measures 4 cm in length and has a diameter of 2.8 cm. The second segment measures 11 cm in length and has an average diameter of 4 cm. Serial sections of the smaller segment of bowel reveal several small diverticula, none of which appear to have perforated through the bowel wall. Serial sections of the largest segment of bowel likewise reveal multiple diverticula, none of which appear to have perforated through the bowel wall. No mucosal lesions are identified in either segment of bowel. The margin for resection of both segments of bowel are grossly unremarkable. Garnett Feeder sections are submitted as follows: 1 - commissary representative section from smaller segment of bowel, 2-6 - commissary representative sections from larger segment of bowel with 6 containing the wilfred-bowel fibrofatty tissue. / AM:ran 04/21/20 B - Received in fixative is one container labeled with the patient's name and designated distal donut. The specimen consists of a donut-shaped piece of colonic tissue measuring 1.5 x 1 x 0.7 cm. Multiple sutures are noted. Garnett Feeder sections are submitted in one cassette. / SJ:ran 04/20/20 C - Received in fixative is one container labeled with the patient's name and designated proximal donut. The specimen consists of a donut-shaped piece of colonic tissue measuring 2 x 1 x 0.5 cm. A suture is also noted. Garnett Feeder sections are submitted in one cassette. / SJ:ran 04/20/20 TC:5 CPT: 90775, 75109 x2, 43405
[2020-04-20 06:01] LABS: Bedside Glucose 126 mg/dL (70-110)
[2020-04-20] MEDS: Lactated Ringers 1,000 ML 40 ML IV ×2 (06:15→14:04)
[2020-04-20] MEDS: Acetaminophen 500 MG Tablet 1000 MG PO ×3 (06:18→18:31)
[2020-04-20] MEDS: Gabapentin 600 MG Tablet PO (06:19)
[2020-04-20 06:46] LABS: Magnesium 2.1 mg/dL (1.6-2.6)
[2020-04-20] MEDS: Lidocaine/D5W 2,000 MG/250 ML IV.SOLN 2000 MG (07:50)
[2020-04-20] MEDS: Bupivacaine 0.25% 30 ML Vial (07:57)
[2020-04-20] MEDS: BUPIVACAINE LIPOSOME/PF 20 ML VIAL OPERA.SITE (07:57)
--- NOTE | 2020-04-20 11:13 | PCM.OPRPT ---
Problem List (1) Diverticular stricture Status: Acute (2) Perforation of sigmoid colon due to diverticulitis Status: Acute Report of Operation Date of Procedure: 04/20/20 Pre-Operative Diagnosis: History of microperforation of the sigmoid colon with diverticulitis. Sigmoid diverticular stricture Post-Operative Diagnosis: Same Surgery/Procedure Performed:: Laparoscopic sigmoid colectomy with low anterior anastomosis Specimen's removed: Sigmoid colon. Proximal rectum. Anastomotic donuts Description of Procedure: Patient was brought to the operating room and general anesthesia was induced. The abdomen was prepped and draped in the usual sterile fashion and a Barrera catheter was placed. The rectum was irrigated with a Betadine saline solution. A midline incision was made superior to the umbilicus and deepened to the fascia. The fascia was elevated and incised. 12 mm port was placed to the incision and the abdomen was insufflated to 15 mmHg. Patient was placed into Trendelenburg position. Laparoscopic guided tap block was performed in the bilateral lateral aspect of the abdomen. Of the right lower quadrant 12 mm incision was placed as well as a right mid abdomen 5 mm port. The pelvis was inspected and there was inflammation of the distal sigmoid colon. The descending colon was divided from its lateral attachments to the abdominal wall using electrocautery. The dissection was carried inferiorly. The lateral sigmoid colon was dissected free. The ureter was identified in the left side and was intact. Next a window in the mesentery was created with the Enseal. The colon was elevated using a [place] drain and the mesentery was taken down inferiorly until the sigmoid vessels were encountered. These were clipped and then Enseal. Dissection was carried down to the superior rectum. Next healthy colon and the descending area was reached out of the pelvis and reached well with no need for splenic flexure takedown. The sigmoid colon was divided with a stapler and mesentery was taken down superiorly until the proximal margin of healthy colon was reached. Next the patient's prior Pfannenstiel incision was incised and the fascia was incised. The muscle was split and the peritoneum was incised. A wound protector was placed into the incision and the distal sigmoid colon was delivered through the incision. The proximal sigmoid colon was clamped and divided sharply. Sizers were used to determine a 25 mm EEA stapler was appropriate and then the anvil was placed into the distal descending colon and a pursestring suture of Prolene was placed. This was returned back into the abdomen the specimen was sent for pathology. The abdomen was reinsufflated and the rectum was dilated using a spacer. There was still kinking of the distal sigmoid colon and proximal rectum with adhesions to the left abdominal wall. The spacer was removed and it was determined that more distal dissection would have to be carried out to allow for the stapler. The proximal rectum was dissected free from its lateral attachments and the hemorrhoidal vessels were ligated with the Enseal. Once the mid rectum was encountered and the rectum was dissected free posteriorly the sizer was placed back into the rectum and the stapler was fired just proximal to this and the rectal stump was removed. Next the stapler is placed through the rectum and the point was placed through the staple line. The anvil was attached and this was closed and then fired. The stapler was then removed and the donuts were intact. Leak test was performed and there was good filling of the descending colon with no air bubbles. Next the pelvis was suctioned dry and the wound protector was removed. All staff removed and changed gown and gloves. The fascia of the 212 mm ports were closed with interrupted 0 Vicryl sutures. The peritoneum of the Pfannenstiel incision was closed with a running 0 Vicryl suture. The fascia was closed in a transverse fashion with 0 PDS suture. The incision was irrigated and suctioned dry. It was injected with the Exparel mixture for local anesthetic. The skin was closed with interrupted 4-0 Monocryl sutures as well as Steri-Strips and bandages. Patient was awoken and taken to PACU in stable condition with Barrera in place. Patient tolerated the procedure well. - Admit VTE Documentation VTE Mechan Device Prophylaxis: SCD's
[2020-04-20] MEDS: Ketorolac 15 MG/ML Vial IV (22:41)
[2020-04-20] MEDS: Docusate Sodium 100 MG Capsule PO (22:41)
--- NOTE | 2020-04-21 01:30 | NURSING ---
This RN contacted by primary RN that 0000 Tylenol dose could not be administered d/t dosing limit. This RN notified Russel in pharmacy about dosing and he believed the patient should still receive 0000 dose. Dose given at 0130.
[2020-04-21] MEDS: Acetaminophen 500 MG Tablet 1000 MG PO ×4 (01:38→20:27)
[2020-04-21 03:13] VITALS: BP 149/75; PULSE 61; RESP 18; TEMP 36.6; O2SAT 98
[2020-04-21] MEDS: 0.9% Saline Lock 10 ML Syringe IV (03:18)
[2020-04-21 06:38] LABS: Hematocrit 38.7 % (37-47); Hemoglobin 12.3 g/dL (12.0-15.0); Mean Corp Hgb Conc 31.8 g/dL (32-36); Mean Corpuscular Hgb 30.1 pg (27.0-32.0); Mean Corpuscular Volume 94.6 fL (81-99); Mean Platelet Vol. 11.4 fl (6.2-12.0); Platelet Count 222 K/mm3 (150-450); RBC Distribution Width CV 13.7 % (11.6-14.6); RBC Distribution Width SD 47.2 fl (35.1-43.9); Red Blood Count 4.09 M/mm3 (4.2-5.4); White Blood Count 8.4 K/mm3 (4.4-11.0)
[2020-04-21 06:47] LABS: Anion Gap 6 (5-15); BUN 7 mg/dL (7-18); BUN/Creat Ratio 10.4 RATIO (10-20); Calcium,Total 8.2 mg/dL (8.5-10.1); Chloride 110 mmol/L (98-107); Creatinine, Serum 0.67 mg/dL (0.55-1.02); EST Glomerular Filtration Rate 94 mL/min (>60); Est Glom Filt Rate - Afr Amer 114 mL/min (>60); Glucose 99 mg/dL (74-106); Potassium 3.5 mmol/L (3.5-5.1); Sodium Level 143 mmol/L (136-145)
[2020-04-21] MEDS: Ketorolac 15 MG/ML Vial IV (07:01)
[2020-04-21] MEDS: Ondansetron ODT 4 MG Tablet PO (07:59)
[2020-04-21 08:00] VITALS: BP 164/68; PULSE 67; RESP 18; TEMP 36.7; O2SAT 96
--- NOTE | 2020-04-21 08:31 | NURSING ---
Barrera removed. Walked to chair, now sitting in chair.
--- NOTE | 2020-04-21 09:15 | CASEMGMT ---
RN AFIA Face to Face with patient for initial transition planning/care coordination assessment. RN CM introduced self and role at [facility]. Patient sitting in chair, alert and oriented. Patient willing to participate in assessment and is able to answer all questions appropriately. Care providers, pharmacy, and demographics verified. Patient wishes to discharge home, denies need for home health at this time. Patient states she has no further needs or concerns at this time. CM to follow for discharge planning needs that may arise. PCP: Anders PLAN CONSULTANT Specialists: Dorie, surgeon; Isaías neurologist Preferred Pharmacy: [facility] Insurance: [employer] Prescription Benefit: yes Living Will/HPOA: yes, son Navneet Baker HPOA LNOK: son Living Arrangements: Patient lives with son in 2 story home with bed and bath on main level. 2 steps and railing to enter the home. Patient states she is independent at home. Transportation: self/son DME/HHC: Patient states she has shower chair, raised toilet, cane, walker, and grab bars at home. Patient has had [facility]HC in the past. Disposition Plan: Patient to discharge home with family support and follow-up plans in place. Joan CURRY, RN, CM
--- NOTE | 2020-04-21 09:16 | PN.SURG_ITS ---
Patient Problems: Active and Suspected Problems (Last Reviewed 04/13/20 @ 09:47 by Bianca Galaviz) Diverticular stricture (Acute) Subjective: Patient is doing well with no complaints. No nausea or vomiting overnight. - Physical Exam Vitals/I&O's: Vital Signs Temp Pulse Resp BP Pulse Ox 98.1 F 67 18 164/68 H 96 04/21/20 08:00 04/21/20 08:00 04/21/20 08:00 04/21/20 08:00 04/21/20 08:00 Oxygen Flow Rate (L/min) 6 Oxygen Delivery Method Room Air Weight: 103 lb 13.404 oz Body Mass Index (BMI) 19.0 Intake and Output for Last 24 Hours 04/19/20 04/20/20 04/21/20 23:59 23:59 23:59 Intake Total 1749.05 / 2149.05 400 / 400 Output Total 540 / 1240 1040 / 1040 Balance 1209.05 / 909.05 -640 / -640 General: Alert, Oriented x3 Neck: No JVD Lungs: Normal air movement Cardiovascular: Regular rate, Regular Rhythm Abdomen: Soft, Non Tender, Non-Distended Laboratory Results 04/21/20 05:50: WBC 8.4, RBC 4.09 L, Hgb 12.3, Hct 38.7, MCV 94.6, MCH 30.1, MCHC 31.8 L, RDW Std Deviation 47.2 H, RDW Coeff of Ana Paula 13.7, Plt Count 222, MPV 11.4 04/21/20 05:50: Sodium 143, Potassium 3.5, Chloride 110 H, Carbon Dioxide 27.0, Anion Gap 6, BUN 7, Creatinine 0.67, Estim Creat Clear Calc 63.90, Est GFR (MDRD) Af Amer 114, Est GFR (MDRD) Non-Af 94, BUN/Creatinine Ratio 10.4, Glucose 99, Calcium 8.2 L Current Medications Acetaminophen (Tylenol) 1,000 mg PO Q6 [facility] Last Admin: 04/21/20 07:42 Dose: 1,000 mg Documented by: Atorvastatin Calcium (Lipitor) 5 mg PO QODAY@2200 [facility] Docusate Sodium (Colace) 100 mg PO BID [facility] Last Admin: 04/20/20 22:41 Dose: 100 mg Documented by: Sodium Chloride () 250 mls @ 15 mls/hr IV .[id number] PRN PRN Reason: Saline Flush Lactated Ringer's () 1,000 mls @ 40 mls/hr IV .Q25H KEVIN Last Admin: 04/20/20 14:04 Dose: 40 mls/hr Documented by: Ketorolac Tromethamine (Toradol (Bkc)) 15 mg IV Q8H PRN PRN PRN Reason: Pain Score 4-10/10 Stop: 04/25/20 10:35 Last Admin: 04/21/20 07:01 Dose: 15 mg Documented by: Magnesium Oxide (Mag-Ox 400) 400 mg PO DAILY PRN PRN PRN Reason: Constipation Nutritional Formula (Lactose Free) (Ensure Enlive) 120 ml PO 4X/DAY KEVIN Last Admin: 04/21/20 08:30 Dose: Not Given Documented by: Ondansetron HCl (Zofran Odt) 4 mg PO Q6H PRN PRN PRN Reason: NAUSEA Last Admin: 04/21/20 07:59 Dose: 4 mg Documented by: Sodium Chloride () 10 - 40 ml IV UD PRN PRN Reason: SALINE FLUSH Last Admin: 04/21/20 03:18 Dose: 10 ml Documented by: Medical Necessity - Tobacco Use Smoking Status: Former smoker Tobacco Use: Non-smoker Assessment/Plan All Active Problems (Last Reviewed 04/13/20 @ 09:47 by Bianca Galaviz) Diverticular stricture (Acute) S/P hysterectomy (Acute) Multiple sclerosis (Acute) Perforation of sigmoid colon due to diverticulitis (Acute) 64-year-old female status post laparoscopic sigmoid colectomy 1. Patient is doing well this morning. She is not passing any flatus but has having any nausea or vomiting. Continue clears until she starts having bowel function. Start Lovenox and DC Barrera. Alejandro Oshea MD Pager: [facility] [address] [place] [address], [address] [place] [address] Office:
--- NOTE | 2020-04-21 09:53 | NURSING ---
Went for a walk about an hour ago with sausage meat trimmer.
[2020-04-21] MEDS: TERIFLUNOMIDE 14 MG PO (10:16)
[2020-04-21] MEDS: Docusate Sodium 100 MG Capsule PO ×2 (10:18→22:33)
--- NOTE | 2020-04-21 10:19 | NURSING ---
pt chewing gum, was encouraged by this nurse. Pt came back from bathroom recently and said she had bright red blood when she wiped. Denies BM.
[2020-04-21 10:48] VITALS: O2SAT 96
[2020-04-21 14:00] VITALS: BP 133/72; PULSE 66; RESP 20; TEMP 37.1; O2SAT 98
[2020-04-21] MEDS: Ensure Clear 120 ML Liquid PO ×3 (14:17→22:33)
--- NOTE | 2020-04-21 14:46 | NURSING ---
Addendum entered by Kylee Hein 04/21/20 16:08: Dr. Oshea aware of bright red from rectum and that pt not complaining of pain. Orders from Dr. Oshea to call him back if it happens again. Patient is aware of this and to show this nurse. Original Note: Walked twice today, no flatus yet. Encouraged to keep walking and chewing gum. Pt states she had another sm bright red drainage from rectum. Will Cortext Dr. Oshea.
[2020-04-21 20:00] VITALS: BP 154/76; PULSE 67; RESP 18; TEMP 37.1; O2SAT 99
[2020-04-21] MEDS: Atorvastatin Calcium 10 MG Tablet 5 MG PO (22:32)
[2020-04-22 02:00] VITALS: BP 179/85; PULSE 74; RESP 18; TEMP 36.8; O2SAT 100
[2020-04-22] MEDS: Lactated Ringers 1,000 ML 40 ML IV (02:23)
[2020-04-22] MEDS: Acetaminophen 500 MG Tablet 1000 MG PO (02:23)
[2020-04-22 06:37] LABS: Absolute Lymphocyte Count 0.83 X10^3/uL (0.83-4.51); Absolute Neutrophil Count 6.6 X10^3/uL (2.0-7.7); Basophil# 0.01 X10^3/uL; Basophil% 0.1 % (0-1); Eosinophil# 0.03 X10^3/uL; Eosinophils% 0.4 % (0-5); Hematocrit 37.3 % (37-47); Hemoglobin 12.1 g/dL (12.0-15.0); Lymphocyte # 0.83 X10^3/ul (4.0); Lymphocyte % 9.8 % (19-41); Mean Corp Hgb Conc 32.4 g/dL (32-36); Mean Corpuscular Hgb 30.1 pg (27.0-32.0); Mean Corpuscular Volume 92.8 fL (81-99); Mean Platelet Vol. 11.4 fl (6.2-12.0); Monocyte# 1.02 X10^3/uL; NRBC Flagged by Analyzer 0 % (0-5); Neutrophil # 6.55 X10^3/uL (2.7-7.7); Neutrophil % 77.3 % (47-70); Platelet Count 202 K/mm3 (150-450); RBC Distribution Width CV 13.2 % (11.6-14.6); Red Blood Count 4.02 M/mm3 (4.2-5.4); White Blood Count 8.5 K/mm3 (4.4-11.0)
[2020-04-22 07:10] LABS: Anion Gap 3 (5-15); BUN 7 mg/dL (7-18); BUN/Creat Ratio 12.6 RATIO (10-20); Calcium,Total 8.4 mg/dL (8.5-10.1); Chloride 109 mmol/L (98-107); Creatinine, Serum 0.56 mg/dL (0.55-1.02); EST Glomerular Filtration Rate 117 mL/min (>60); Est Glom Filt Rate - Afr Amer 141 mL/min (>60); Estimated Creatinine Clearance 76.46 ml/min; Glucose 104 mg/dL (74-106); Potassium 3.5 mmol/L (3.5-5.1); Sodium Level 141 mmol/L (136-145)
--- NOTE | 2020-04-22 07:34 | PCM.PN.SRG ---
Patient Problems: Active and Suspected Problems (Last Reviewed 04/13/20 @ 09:47 by Bianca Galaviz) Diverticular stricture (Acute) Subjective: Patient is doing well and reports that she started to pass flatus. She did have a few drops of bright red blood yesterday but since then she has had a few loose bowel movements with no blood in them. She is not having any abdominal pain. - Physical Exam Vitals/I&O's: Vital Signs Temp Pulse Resp BP Pulse Ox 98.3 F 74 18 179/85 H 100 04/22/20 02:00 04/22/20 02:00 04/22/20 02:00 04/22/20 02:00 04/22/20 02:00 Oxygen Flow Rate (L/min) 6 Oxygen Delivery Method Room Air Weight: 103 lb 13.404 oz Body Mass Index (BMI) 19.0 Intake and Output for Last 24 Hours 04/20/20 04/21/20 04/22/20 23:59 23:59 23:59 Intake Total 1749.05 / 2149.05 2120 / 2370 250 / 250 Output Total 540 / 1240 1440 / 1440 300 / 300 Balance 1209.05 / 909.05 680 / 930 -50 / -50 General: Alert, Oriented x3 Lungs: Normal air movement Cardiovascular: Regular rate, Regular Rhythm Abdomen: Soft, Non Tender, Non-Distended Laboratory Results 04/22/20 05:59: WBC 8.5, RBC 4.02 L, Hgb 12.1, Hct 37.3, MCV 92.8, MCH 30.1, MCHC 32.4, RDW Std Deviation 45.0 H, RDW Coeff of Ana Paula 13.2, Plt Count 202, MPV 11.4, Immature Gran % (Auto) 0.400, Neut % (Auto) 77.3 H, Lymph % (Auto) 9.8 L, [place] % (Auto) 12.0 H, Eos % (Auto) 0.4, Baso % (Auto) 0.1, Absolute Neuts (auto) 6.6, Absolute Lymphs (auto) 0.83, Nucleated RBC % 0 04/22/20 05:59: Sodium 141, Potassium 3.5, Chloride 109 H, Carbon Dioxide 29.0, Anion Gap 3 L, BUN 7, Creatinine 0.56, Estim Creat Clear Calc 76.46, Est GFR (MDRD) Af Amer 141, Est GFR (MDRD) Non-Af 117, BUN/Creatinine Ratio 12.6, Glucose 104, Calcium 8.4 L Current Medications Acetaminophen (Tylenol) 1,000 mg PO Q6 [facility] Last Admin: 04/22/20 02:23 Dose: 1,000 mg Documented by: Atorvastatin Calcium (Lipitor) 5 mg PO QODAY@2200 [facility] Last Admin: 04/21/20 22:32 Dose: 5 mg Documented by: Docusate Sodium (Colace) 100 mg PO BID [facility] Last Admin: 04/21/20 22:33 Dose: 100 mg Documented by: Sodium Chloride () 250 mls @ 15 mls/hr IV .[id number] PRN PRN Reason: Saline Flush Ketorolac Tromethamine (Toradol (Bkc)) 15 mg IV Q8H PRN PRN PRN Reason: Pain Score 4-10/10 Stop: 04/25/20 10:35 Last Admin: 04/21/20 07:01 Dose: 15 mg Documented by: Magnesium Oxide (Mag-Ox 400) 400 mg PO DAILY PRN PRN PRN Reason: Constipation Nutritional Formula (Lactose Free) (Ensure Clear) 120 ml PO 4X/DAY [facility] Last Admin: 04/21/20 22:33 Dose: 120 ml Documented by: Ondansetron HCl (Zofran Odt) 4 mg PO Q6H PRN PRN PRN Reason: NAUSEA Last Admin: 04/21/20 07:59 Dose: 4 mg Documented by: Sodium Chloride () 10 - 40 ml IV UD PRN PRN Reason: SALINE FLUSH Last Admin: 04/21/20 03:18 Dose: 10 ml Documented by: Medical Necessity - Tobacco Use Smoking Status: Former smoker Tobacco Use: Non-smoker Assessment/Plan All Active Problems (Last Reviewed 04/13/20 @ 09:47 by Bianca Galaviz) Diverticular stricture (Acute) S/P hysterectomy (Acute) Multiple sclerosis (Acute) Perforation of sigmoid colon due to diverticulitis (Acute) 64-year-old female status post sigmoid colectomy 1. Patient is doing well today and starting to pass flatus. I will start her on a transitional diet and stop fluids. She reports no abdominal pain. She says that she did have a few episodes of bright red blood per rectum but since then she has had several bowel movements with no blood. She also has a history of collagenous colitis which may be causing this blood. 2. If patient tolerates diet with no nausea vomiting and continues not to have rectal bleeding I will discharge her home today. Alejandro Oshea MD Pager: [facility] [address] [place] [address], [address] [place] [phone] Office:
--- NOTE | 2020-04-22 07:36 | DCINST_ITS ---
Discharge Diet: No Restrictions Discharge Activity: Return to Normal Activity, May Shower Lifting Restrictions: 20 lbs for 4 weeks Additional Activity Instructions:: Be aware that pain medications may cause nausea. You should typically eat light foods as you take your pain medications. Pain medications may also cause constipation, if you have difficulty with this please discuss with your doctor. Call your doctor if your incision/area has: Continuous Slow Oozing, Sudden Increased Bleeding, Increased Pain/ Swelling, Increased Redness, Foul Smelling Discharge, Swelling at the incision site Call your doctor if you observe: Fever of 101 or Higher Remove Dressing in (days):: 1 - Remove bandages tomorrow. Leave steri strips until follow up visit. Cleanse incision/area with: Soap & Water Allergies/Adverse Reactions: Allergies No Known Allergies Allergy (Verified 04/20/20 05:42) Medications to take at Discharge Rosuvastatin Calcium [Crestor] 2.5 mg PO QODAY 01/07/20 Teriflunomide [Aubagio] 14 mg PO DAILY 01/07/20 Calcium Citrate/Vitamin D2 [Quan-Citrate Plus Vitamin D Tab] 1 ea PO DAILY 01/08/20 Multivitamin [Multiple Vitamins] 1 ea PO DAILY 01/08/20 Ascorbic Acid/Vitamin E/Biotin [Hair Skin Nails-Biotin Gummies] 1 ea PO DAILY 04/03/20 Primary Care Physician: Laura Mcnamara NP-C [Primary Care Provider] - Test Results: Test results from this visit will be discussed in further detail at your follow- up appointment, if applicable. Please Follow Up With: Alejandro Oshea MD When: Please call to schedule 1 week follow up appointment. [phone]
--- NOTE | 2020-04-22 07:41 | DS.PCM_ITS ---
Discharge Date and Diagnosis - Problem List Patient Problems: Active and Suspected Problems (Last Reviewed 04/13/20 @ 09:47 by Bianca Galaviz) Diverticular stricture (Acute) Date of Admission: 04/20/20 Date of Discharge: 04/22/20 - Primary Discharge Diagnosis Acute Problems: Active Problems (Last Reviewed 04/13/20 @ 09:47 by Bianca Galaviz) Diverticular stricture (Acute) Hospital Course and Treatment Operations: colectomy Procedures: None Summary of Care Provided: The patient is a 64 year old F who presented for elective sigmoid colectomy. Patient was doing well and the first postoperative day she is started on clear liquid diet. On the second postoperative day she was passing flatus and started on a regular diet and discharged home in stable condition. Patient Problems: Active and Suspected Problems (Last Reviewed 04/13/20 @ 09:47 by Bianca Galaviz) Diverticular stricture (Acute) - Physical Exam Vitals/I&O's: Vital Signs Temp Pulse Resp BP Pulse Ox 98.3 F 74 18 179/85 H 100 04/22/20 02:00 04/22/20 02:00 04/22/20 02:00 04/22/20 02:00 04/22/20 02:00 Oxygen Flow Rate (L/min) 6 Oxygen Delivery Method Room Air Weight: 103 lb 13.404 oz Body Mass Index (BMI) 19.0 Intake and Output for Last 24 Hours 04/20/20 04/21/20 04/22/20 23:59 23:59 23:59 Intake Total 1749.05 / 2149.05 2120 / 2370 250 / 250 Output Total 540 / 1240 1440 / 1440 300 / 300 Balance 1209.05 / 909.05 680 / 930 -50 / -50 Laboratory Results 04/22/20 05:59: WBC 8.5, RBC 4.02 L, Hgb 12.1, Hct 37.3, MCV 92.8, MCH 30.1, MCHC 32.4, RDW Std Deviation 45.0 H, RDW Coeff of Ana Paula 13.2, Plt Count 202, MPV 11.4, Immature Gran % (Auto) 0.400, Neut % (Auto) 77.3 H, Lymph % (Auto) 9.8 L, [place] % (Auto) 12.0 H, Eos % (Auto) 0.4, Baso % (Auto) 0.1, Absolute Neuts (auto) 6.6, Absolute Lymphs (auto) 0.83, Nucleated RBC % 0 04/22/20 05:59: Sodium 141, Potassium 3.5, Chloride 109 H, Carbon Dioxide 29.0, Anion Gap 3 L, BUN 7, Creatinine 0.56, Estim Creat Clear Calc 76.46, Est GFR (MDRD) Af Amer 141, Est GFR (MDRD) Non-Af 117, BUN/Creatinine Ratio 12.6, Glucose 104, Calcium 8.4 L Current Medications Acetaminophen (Tylenol) 1,000 mg PO Q6 [facility] Last Admin: 04/22/20 02:23 Dose: 1,000 mg Documented by: Atorvastatin Calcium (Lipitor) 5 mg PO QODAY@2200 [facility] Last Admin: 04/21/20 22:32 Dose: 5 mg Documented by: Docusate Sodium (Colace) 100 mg PO BID [facility] Last Admin: 04/21/20 22:33 Dose: 100 mg Documented by: Sodium Chloride () 250 mls @ 15 mls/hr IV .[id number] PRN PRN Reason: Saline Flush Ketorolac Tromethamine (Toradol (Bkc)) 15 mg IV Q8H PRN PRN PRN Reason: Pain Score 4-10/10 Stop: 04/25/20 10:35 Last Admin: 04/21/20 07:01 Dose: 15 mg Documented by: Magnesium Oxide (Mag-Ox 400) 400 mg PO DAILY PRN PRN PRN Reason: Constipation Nutritional Formula (Lactose Free) (Ensure Clear) 120 ml PO 4X/DAY [facility] Last Admin: 04/21/20 22:33 Dose: 120 ml Documented by: Ondansetron HCl (Zofran Odt) 4 mg PO Q6H PRN PRN PRN Reason: NAUSEA Last Admin: 04/21/20 07:59 Dose: 4 mg Documented by: Sodium Chloride () 10 - 40 ml IV UD PRN PRN Reason: SALINE FLUSH Last Admin: 04/21/20 03:18 Dose: 10 ml Documented by: Discharge Diet: No Restrictions Discharge Activity: Return to Normal Activity, May Shower Additional Activity Instructions:: Be aware that pain medications may cause nausea. You should typically eat light foods as you take your pain medications. Pain medications may also cause constipation, if you have difficulty with this please discuss with your doctor. Call your doctor if your incision/area has: Continuous Slow Oozing, Sudden Increased Bleeding, Increased Pain/ Swelling, Increased Redness, Foul Smelling Discharge, Swelling at the incision site Call your doctor if you observe: Fever of 101 or Higher Remove Dressing in (days):: 1 - Remove bandages tomorrow. Leave steri strips until follow up visit. Cleanse incision/area with: Soap & Water Home Medications: Medications to take at Discharge Rosuvastatin Calcium [Crestor] 2.5 mg PO QODAY 01/07/20 Teriflunomide [Aubagio] 14 mg PO DAILY 01/07/20 Calcium Citrate/Vitamin D2 [Quan-Citrate Plus Vitamin D Tab] 1 ea PO DAILY 01/08/20 Multivitamin [Multiple Vitamins] 1 ea PO DAILY 01/08/20 Ascorbic Acid/Vitamin E/Biotin [Hair Skin Nails-Biotin Gummies] 1 ea PO DAILY 04/03/20 Primary Care Physician: Laura Mcnamara, UTILITIES AND MAINTENANCE SUPERVISOR-C [Primary Care Provider] - Please Follow Up With: Alejandro Oshea MD When: Please call to schedule 1 week follow up appointment. [phone] Medical Necessity - Tobacco Use Smoking Status: Former smoker Tobacco Use: Non-smoker Meaningful Use Info Meaningful Use Diagnoses (Choose all that apply): None applicable
[2020-04-22 07:54] VITALS: BP 151/76; PULSE 78; RESP 18; TEMP 36.7; O2SAT 96
[2020-04-22 08:36] VITALS: O2SAT 95
--- NOTE | 2020-04-22 10:24 | NURSING ---
Order was to discharge pt this afternoon but her ride was only available this morning. Dr. Oshea aware that pt ate breakfast one hour ago, had a bm and no blood with bm. Dr. Oshea okayed for pt to go now.
== END 2020-04-22 10:20 | disposition home or self-care (01) | DRG 329 ==
LOC: ACINP 05:25 → MS3 11:15
PROVIDERS: Anesthesiology; Admitting Provider Surgery; PCP Nurse Practitioner; Referring Provider Surgery; Visit Provider Surgery
PROC: 0DTN0ZZ Resection of Sigmoid Colon, Open Approach (ICD-10-PCS; CPT 44204; principal; 2020-04-20 07:05)
DX: K57.20 Diverticulitis of large intestine with perforation and abscess without bleeding (principal); E43 Unspecified severe protein-calorie malnutrition; Z68.1 Body mass index [BMI] 19.9 or less, adult; Z87.891 Personal history of nicotine dependence; G35 Multiple sclerosis; K52.831 Collagenous colitis
CPT/HCPCS: 36415; 80048; 82962; 83735; 85025; 85027; 87635; 88304; 88307; 88313; 99251; G2023; J7050; J7120; A4216; G0463; U0003

== ENCOUNTER → 2020-08-17 12:06 | Outpatient (CLI) | payer MEDICARE, BC, SELFPAY ==
[2020-04-27 13:10] VITALS: BMI 18.8
--- NOTE | 2020-08-17 12:08 | BI_ITS ---
MAMMOGRAPHY - BILATERAL SCREENING REASON FOR EXAM: Female, 65 years old. Routine annual screening examination. PERTINENT HISTORY: Non-contributory. TECHNIQUE: Digital bilateral breast jewels (3D mammographic acquisition) in the CC and MLO projections. 2-D mediolateral oblique (MLO) and craniocaudad (CC) views of both breasts were obtained. CAD: Full Field Digital Mammography with Computer Added Detection was performed. COMPARISON: Comparison is made with prior study dated 08/02/2019 and 07/29/2018. FINDINGS: Breast Composition: The breasts are heterogeneously dense, which may obscure small masses. There are no dominant masses or suspicious calcifications. No other significant abnormalities are identified. There has been no significant change since the prior study. BI/SCREEN MAMM (CAD) W/JEWELS BILAT IMPRESSION: Stable bilateral screening mammogram. Yearly follow-up mammogram recommended. (A) ASSESSMENT CATEGORY: BIRADS Category 1: Negative. A letter regarding these results will be sent to the patient by the facility within 30 days. Approximately 10% of breast cancers are not detected by mammography. A normal mammogram should not delay biopsy of a clinically suspicious abnormality. [id number] Electronically Signed: Honorio Ybarra, at 12:58 EDT , Service support ,
== END ==
PROVIDERS: PCP Nurse Practitioner; Referring Provider Nurse Practitioner; Visit Provider Nurse Practitioner
DX: Z12.31 Encounter for screening mammogram for malignant neoplasm of breast (principal)
CPT/HCPCS: 77063; 77067

== ENCOUNTER → 2020-08-23 13:16 | Outpatient (CLI) | payer MEDICARE, BC, SELFPAY ==
[2020-04-27 13:10] VITALS: BMI 18.8
[2020-08-23 14:17] LABS: Absolute Lymphocyte Count 1.04 X10^3/uL (0.83-4.51); Basophil# 0.03 X10^3/uL; Basophil% 0.5 % (0-1); Eosinophil# 0.04 X10^3/uL; Eosinophils% 0.7 % (0-5); Hematocrit 42.8 % (37-47); Hemoglobin 13.4 g/dL (12.0-15.0); Lymphocyte # 1.04 X10^3/ul (4.0); Mean Corp Hgb Conc 31.3 g/dL (32-36); Mean Corpuscular Volume 95.7 fL (81-99); Mean Platelet Vol. 11.2 fl (6.2-12.0); Monocyte# 0.93 X10^3/uL; Monocyte% 15.2 % (0-10); NRBC Flagged by Analyzer 0 % (0-5); Neutrophil # 4.04 X10^3/uL (2.7-7.7); Neutrophil % 66.3 % (47-70); Platelet Count 260 K/mm3 (150-450); RBC Distribution Width CV 12.9 % (11.6-14.6); RBC Distribution Width SD 45.5 fl (35.1-43.9); Red Blood Count 4.47 M/mm3 (4.2-5.4); White Blood Count 6.1 K/mm3 (4.4-11.0)
[2020-08-23 14:33] LABS: ALB/GLOB Ratio 1.2 RATIO (0.9-2.4); AST(SGOT) 19 U/L (15-37); Alanine Aminotransfer ALT/SGPT 23 U/L (13-56); Alkaline Phosphatase 47 U/L (45-117); Anion Gap 3 (5-15); BUN 17 mg/dL (7-18); BUN/Creat Ratio 20.7 RATIO (10-20); Calcium,Total 9.5 mg/dL (8.5-10.1); Chloride 110 mmol/L (98-107); Creatinine, Serum 0.82 mg/dL (0.55-1.02); EST Glomerular Filtration Rate 74 mL/min (>60); Est Glom Filt Rate - Afr Amer 90 mL/min (>60); Globulin 3.2 g/dL (2.2-4.2); Glucose 102 mg/dL (74-106); Potassium 3.9 mmol/L (3.5-5.1); Protein, Total 7.2 g/dL (6.4-8.2); Sodium Level 143 mmol/L (136-145)
== END ==
PROVIDERS: PCP Nurse Practitioner
DX: G35 Multiple sclerosis (principal)
CPT/HCPCS: 36415; 80053; 85025

== ENCOUNTER → 2021-01-10 11:56 | Outpatient (CLI) | payer MEDICARE, BC, SELFPAY ==
[2020-04-27 13:10] VITALS: BMI 18.8
[2021-01-10 15:42] LABS: CRP < 2.90 mg/L (0.0-3.0)
[2021-01-15 16:08] LABS: Endomysial Antibody IgA Negative (Negative); Immunoglobulin A 65 mg/dL (87-352)
[2021-01-15 16:44] LABS: t-Transglutaminase IgA <2 U/mL (0-3)
== END ==
PROVIDERS: PCP Nurse Practitioner; Referring Provider Internal Medicine Gastroenterology; Visit Provider Internal Medicine Gastroenterology
DX: R19.7 Diarrhea, unspecified (principal)
CPT/HCPCS: 36415; 82784; 83516; 86140; 86255

== ENCOUNTER → 2021-01-22 13:17 | Outpatient (CLI) | payer MEDICARE, BC, SELFPAY ==
[2020-04-27 13:10] VITALS: BMI 18.8
== END ==
PROVIDERS: PCP Nurse Practitioner; Referring Provider Internal Medicine Gastroenterology; Visit Provider Internal Medicine Gastroenterology
DX: R19.7 Diarrhea, unspecified (principal)
CPT/HCPCS: 36415; 83516

== ENCOUNTER → 2021-07-31 11:03 | Outpatient (CLI) | payer MEDICARE, BC, SELFPAY ==
[2021-07-31 11:45] LABS: Absolute Lymphocyte Count 1.13 X10^3/uL (0.83-4.51); Absolute Neutrophil Count 4.3 X10^3/uL (2.0-7.7); Basophil# 0.04 X10^3/uL; Basophil% 0.6 % (0-1); Eosinophil# 0.07 X10^3/uL; Eosinophils% 1.1 % (0-5); Hematocrit 42.6 % (37-47); Hemoglobin 13.7 g/dL (12.0-15.0); Lymphocyte # 1.13 X10^3/ul (0.83-4.51); Mean Corp Hgb Conc 32.2 g/dL (32-36); Mean Corpuscular Volume 93.4 fL (81-99); Mean Platelet Vol. 10.6 fl (6.2-12.0); Monocyte# 1.06 X10^3/uL; Monocyte% 15.9 % (0-10); NRBC Flagged by Analyzer 0 % (0-5); Neutrophil # 4.33 X10^3/uL (2.7-7.7); Neutrophil % 64.9 % (47-70); Platelet Count 245 K/mm3 (150-450); RBC Distribution Width SD 44.9 fl (35.1-43.9); Red Blood Count 4.56 M/mm3 (4.2-5.4); White Blood Count 6.7 K/mm3 (4.4-11.0)
[2021-07-31 12:20] LABS: AST(SGOT) 18 U/L (15-37); Alanine Aminotransfer ALT/SGPT 28 U/L (13-56); Albumin, Serum 3.9 g/dL (3.2-5.0); Alkaline Phosphatase 43 U/L (45-117); Bilirubin, Direct 0.11 mg/dL (0.00-0.30); Globulin 3.3 g/dL (2.2-4.2); Protein, Total 7.2 g/dL (6.4-8.2)
== END ==
PROVIDERS: PCP Nurse Practitioner; Referring Provider Psychiatry & Neurology Neurology; Visit Provider Psychiatry & Neurology Neurology
DX: G35 Multiple sclerosis (principal)
CPT/HCPCS: 36415; 80076; 85025

== ENCOUNTER → 2021-08-21 10:58 | Outpatient (CLI) | payer MEDICARE, BC, SELFPAY ==
[2020-04-27 13:10] VITALS: BMI 18.8
--- NOTE | 2021-08-21 11:00 | BI_ITS ---
MAMMOGRAPHY - BILATERAL SCREENING REASON FOR EXAM: Female, 66 years old. Routine annual screening examination. PERTINENT HISTORY: Non-contributory. TECHNIQUE: Digital bilateral breast jewels (3D mammographic acquisition) in the CC and MLO projections. 2-D mediolateral oblique (MLO) and craniocaudad (CC) views of both breasts were obtained. CAD: Full Field Digital Mammography with Computer Added Detection was performed. COMPARISON: Comparison is made with prior study dated 08/17/2020 and 08/02/2019 FINDINGS: Breast Composition: The breasts are heterogeneously dense, which may obscure small masses. There are no dominant masses or suspicious calcifications. No other significant abnormalities are identified. There has been no significant change since the prior study. BI/SCRN MAMM (CAD)W/JEWELS BILAT IMPRESSION: Stable bilateral screening mammogram. Yearly follow-up mammogram recommended. (A) ASSESSMENT CATEGORY: BIRADS Category 1: Negative. A letter regarding these results will be sent to the patient by the facility within 30 days. Approximately 10% of breast cancers are not detected by mammography. A normal mammogram should not delay biopsy of a clinically suspicious abnormality. [id number] Electronically Signed: Honorio Ybarra MD at 12:32 EDT , Service support ,
--- NOTE | 2021-08-21 11:02 | BD_ITS ---
STUDY: DUAL ENERGY X-RAY ABSORPTIOMETRY / DXA REASON FOR EXAM: Female, 66 years old. M810. The patient is postmenopausal. TECHNIQUE: Bone Mineral Density (BMD) measurements of lumbar spine and bilateral hips were obtained. COMPARISON: Comparison is made with prior study 08/17/2019. FINDINGS: Lumbar Spine (L1-L4): g/cm2 (0.811) / T-score (-2.1) / Z-score (-0.4) Findings are suggestive of osteopenia with a high fracture risk. Left Femur Total: g/cm2 (0.578) / T-score (-3.0) / Z-score (-1.7) Left Femoral Neck: g/cm2 (0.556) / T-score (-2.6) / Z-score (-1.1) Right Femur Total: g/cm2 (0.635) / T-score (-2.5) / Z-score (-1.3) Right Femoral Neck: g/cm2 (0.578) / T-score (-2.4) / Z-score (-0.9) The T-Scores on the most recent prior examination were: Lumbar Spine (L1-L4): There has been improvement of bone density since the previous examination. Left Femur Total: which represents an improvement of 1.7%. Right Femur Total: which represents an improvement of 16.3%. BD/Dexa Bone Density Study IMPRESSION: The patient is considered osteoporotic as outlined below according to World Gunn[place] Organization (WHO) criteria with a high fracture risk. There has been improvement of bone density since the previous examination. Reference Information: The T-score is the number of standard deviations above or below the standard which is normal for young adults at their peak bone mineral density. The World Health Organization (WHO) interprets the T-scores as follows: Above -1 Normal bone density Between -1 and -2.5 Osteopenia Equal to / or below -2.5 Osteoporosis As a practical clinical guideline, osteopenia may be graded as follows: Mild -1 through -1.5 Moderate -1.6 through -2.0 Severe -2.1 through -2.4 The Z-score is the number of standard deviations above or below age-matched controls. A Z-score of less than -1.5 would be considered abnormal. References: 1. NIH Osteoporosis and Related Bone Diseases www osteo.org 2. International Society for Clinical Densitometry www iscd.org 3. National Osteoporosis Foundation www nof.org Electronically Signed: Honorio Ybarra MD at 13:27 EDT , Service support ,
== END ==
PROVIDERS: PCP Nurse Practitioner; Visit Provider Nurse Practitioner
DX: M81.0 Age-related osteoporosis without current pathological fracture (principal); Z12.31 Encounter for screening mammogram for malignant neoplasm of breast
CPT/HCPCS: 77063; 77067; 77080

== ENCOUNTER 2021-12-28 10:19 | Outpatient (CLI) | payer MEDICARE, BC, SELFPAY ==
[2021-12-28 10:34] VITALS: BP 167/80; PULSE 82; RESP 16; O2SAT 98; BMI 17.5
[2021-12-28] MEDS: DENOSUMAB 60 MG/ML SC (10:38)
== END 2021-12-28 23:59 | disposition home or self-care (01) ==
LOC: MEDOUTP 10:21
PROVIDERS: PCP Nurse Practitioner; Referring Provider Internal Medicine; Visit Provider Internal Medicine
DX: M81.0 Age-related osteoporosis without current pathological fracture (principal)
CPT/HCPCS: 96372; J0897

== ENCOUNTER → 2022-06-28 | Outpatient (CLI) | payer MEDICARE, BC, SELFPAY ==
[2022-06-28] MEDS: DENOSUMAB 60 MG/ML SC (10:33)
[2022-06-28 10:38] VITALS: BP 145/81; PULSE 68; O2SAT 96
== END | disposition home or self-care (01) ==
LOC: MEDOUTP 10:27
PROVIDERS: PCP Nurse Practitioner; Referring Provider Internal Medicine; Visit Provider Internal Medicine
DX: M81.0 Age-related osteoporosis without current pathological fracture (principal)
CPT/HCPCS: 96372; J0897

== ENCOUNTER → 2022-08-12 | Outpatient (CLI) | payer MEDICARE, BC, SELFPAY ==
[2022-08-12 13:09] LABS: Absolute Lymphocyte Count 1.03 X10^3/uL (0.83-4.51); Absolute Neutrophil Count 3.3 X10^3/uL (2.0-7.7); Basophil# 0.03 X10^3/uL; Basophil% 0.6 % (0-1); Eosinophil# 0.07 X10^3/uL; Eosinophils% 1.3 % (0-5); Hematocrit 39.5 % (37-47); Hemoglobin 12.7 g/dL (12.0-15.0); Lymphocyte # 1.03 X10^3/ul (0.83-4.51); Lymphocyte % 19.4 % (19-41); Mean Corp Hgb Conc 32.2 g/dL (32-36); Mean Corpuscular Volume 93.4 fL (81-99); Monocyte# 0.86 X10^3/uL; Monocyte% 16.2 % (0-10); NRBC Flagged by Analyzer 0 % (0-5); Neutrophil # 3.31 X10^3/uL (2.7-7.7); Neutrophil % 62.1 % (47-70); Platelet Count 247 K/mm3 (150-450); RBC Distribution Width CV 13.2 % (11.6-14.6); RBC Distribution Width SD 45.1 fl (35.1-43.9); Red Blood Count 4.23 M/mm3 (4.2-5.4); White Blood Count 5.3 K/mm3 (4.4-11.0)
[2022-08-12 13:42] LABS: ALB/GLOB Ratio 1.2 RATIO (0.9-2.4); AST(SGOT) 21 U/L (15-37); Alanine Aminotransfer ALT/SGPT 25 U/L (13-56); Albumin, Serum 3.6 g/dL (3.2-5.0); Alkaline Phosphatase 41 U/L (45-117); Anion Gap 5 (5-15); BUN 18 mg/dL (7-18); BUN/Creat Ratio 22.6 RATIO (10-20); Calcium,Total 9.1 mg/dL (8.5-10.1); Chloride 108 mmol/L (98-107); EST Glomerular Filtration Rate 76 mL/min (>60); Est Glom Filt Rate - Afr Amer 93 mL/min (>60); Globulin 2.9 g/dL (2.2-4.2); Glucose 108 mg/dL (74-106); Protein, Total 6.5 g/dL (6.4-8.2); Sodium Level 143 mmol/L (136-145)
== END | disposition home or self-care (01) ==
LOC: LAB 11:52
PROVIDERS: PCP Nurse Practitioner Family; Visit Provider Psychiatry & Neurology Neurology
DX: G35 Multiple sclerosis (principal)
CPT/HCPCS: 36415; 80053; 85025

== ENCOUNTER → 2022-08-22 | Outpatient (CLI) | payer MEDICARE, BC, SELFPAY ==
--- NOTE | 2022-08-22 11:52 | BI_ITS ---
MAMMOGRAPHY - BILATERAL SCREENING 3-D TOMOSYNTHESIS REASON FOR EXAM: Female, 67 years old. Routine screening PERTINENT HISTORY: No significant family history. TECHNIQUE: 2-D mammograms and 3-D Tomosynthesis of the breast (s) were performed. CAD was performed. COMPARISON: 08/21/2021 FINDINGS: The breast composition is heterogeneously dense that can obscure small breast masses. Scattered benign calcifications are seen. No dense spiculated masses or suspicious microcalcifications are identified. No architectural distortion is identified. There is no skin thickening or retraction. There has been no significant change since the prior study. BI/SCRN MAMM (CAD)W/JEWELS BILAT IMPRESSION: No mammographic signs of malignancy. Routine yearly mammograms recommended. ASSESSMENT CATEGORY: BIRADS Category 1: Negative. A letter regarding these results will be sent to the patient by the facility within 30 days. FOLLOW UP RECOMMENDATION: Yearly follow up mammogram recommended. (A) Approximately 10% of breast cancers are not detected by mammography. A normal mammogram should not delay biopsy of a clinically suspicious abnormality. Electronically Signed: Devin Childress MD at 12:38 EDT ,
== END | disposition home or self-care (01) ==
LOC: OPBI 11:51
PROVIDERS: PCP Nurse Practitioner Family; Visit Provider Nurse Practitioner Family
DX: Z12.31 Encounter for screening mammogram for malignant neoplasm of breast (principal)
CPT/HCPCS: 77063; 77067

== ENCOUNTER → 2022-12-19 | Outpatient (CLI) | payer MEDICARE, BC, SELFPAY ==
--- NOTE | 2022-12-19 12:50 | ECHOD_ITS ---
Reason For Study: Abnormal EKG Procedure This was a 2D Doppler, Color Flow transthoracic echocardiogram. Exam performed in department. Left Ventricle Normal size and thickness. The left ventricular ejection fraction is 65 %. Right Ventricle Normal right ventricle. Atria Dilated left atrial appendage vs aneurysmal left atrium. Recommend cardiac MRI for further evalaution. Normal right atrium. Mitral Valve Mild diffuse mitral valve thickening. Tricuspid Valve Moderate (2+) tricuspid valve insufficiency. Pulmonary artery systolic pressure is 49 mmHg. Aortic Valve Trisinus/trileaflet aortic valve. Mild-Moderate (1-2+) aortic valve insufficiency. Pulmonic Valve Mild (1+) pulmonic valve insufficiency. Great Vessels Normal sized aortic root. Pericardium/Pleural Small pericardial effusion. MMode/2D Measurements & Calculations LVIDd: 3.6 cm IVSd: 1.0 cm Ao root diam: 3.3 cm LVIDs: 2.4 cm LVPWd: 0.94 cm LA dimension: 2.8 cm RVDd: 2.9 cm FS: 34.0 % LAV(MOD-bp): 38.6 ml LVAd ap4: 21.0 cm2 SV(MOD-sp4): 33.6 ml LAV(MOD-bp) Indexed: 27.1 ml/m2 LVLd ap4: 7.4 cm LAV(MOD-sp2): 35.6 ml EDV(MOD-sp4): 49.1 ml LAV(MOD-sp4): 35.9 ml EDV(sp4-el): 51.1 ml LVAs ap4: 10.4 cm2 LVLs ap4: 6.2 cm ESV(MOD-sp4): 15.5 ml ESV(sp4-el): 14.7 ml EF(MOD-sp4): 68.5 % EF(sp4-el): 71.2 % SV(sp4-el): 36.4 ml LA A4 area: 15.0 cm2 RA A4 area: 9.7 cm2 Time Measurements MV dec time: 0.16 sec Doppler Measurements & Calculations MV E max pito: 60.9 cm/sec Lat Peak E' Pito: 11.8 cm/sec Med Peak E' Pito: 7.6 cm/sec MV A max pito: 59.4 cm/sec E/E' lat: 5.2 E/E' med: 8.0 MV E/A: 1.0 MV V2 max: 79.5 cm/sec MV P1/2t max pito: 80.3 cm/sec Ao V2 max: 137.9 cm/sec MV max P.5 mmHg MV P1/2t: 57.5 msec Ao max P.6 mmHg MV V2 mean: 40.6 cm/sec Ao V2 mean: 93.4 cm/sec MV mean P.80 mmHg MV dec slope: 409.3 cm/sec2 Ao mean P.0 mmHg MV V2 VTI: 18.5 cm MVA(P1/2t): 3.8 cm2 Ao V2 VTI: 29.8 cm AV (velocity ratio): 0.70 AI max pito: 524.2 cm/sec LV V1 max: 94.2 cm/sec PA V2 max: 98.4 cm/sec AI max P.2 mmHg LV V1 max P.6 mmHg PA V2 mean: 70.7 cm/sec AI dec slope: 296.5 cm/sec2 LV V1 mean P.1 mmHg AI P1/2t: 517.9 msec LV V1 mean: 69.2 cm/sec LV V1 VTI: 20.9 cm TR max pito: 312.2 cm/sec TR max P.0 mmHg ECHO/Echo Complete Interpretation Summary The left ventricular ejection fraction is 65 %. Dilated left atrial appendage vs aneurysmal left atrium. Recommend cardiac MRI for further evalaution. Moderate (2+) tricuspid valve insufficiency. Pulmonary artery systolic pressure is 49 mmHg. Mild-Moderate (1-2+) aortic valve insufficiency. Mild (1+) pulmonic valve insufficiency. Small pericardial effusion. Ordering Physician: Kamala Arellano Referring Physician: Kamala Arellano Performed By: Nikhil Ibarra RCS
== END | disposition home or self-care (01) ==
LOC: CVS 12:48
PROVIDERS: PCP Nurse Practitioner Family; Referring Provider Nurse Practitioner Family; Visit Provider Nurse Practitioner Family
DX: R94.31 Abnormal electrocardiogram [ECG] [EKG] (principal)
CPT/HCPCS: 93306

== ENCOUNTER → 2022-12-27 | Outpatient (CLI) | payer MEDICARE, BC, SELFPAY ==
[2022-12-27 10:45] VITALS: BP 130/73; PULSE 69; RESP 16; TEMP 36.3; O2SAT 98; BMI 18.3
[2022-12-27] MEDS: DENOSUMAB 60 MG/ML SC (10:48)
== END | disposition home or self-care (01) ==
LOC: MEDOUTP 10:22
PROVIDERS: PCP Nurse Practitioner Family; Referring Provider Internal Medicine; Visit Provider Internal Medicine
DX: M81.0 Age-related osteoporosis without current pathological fracture (principal)
CPT/HCPCS: 96372; J0897

== ENCOUNTER → 2023-01-01 | Outpatient (CLI) | payer MEDICARE, BC, SELFPAY ==
[2023-01-01 12:27] LABS: ALB/GLOB Ratio 1.3 RATIO (0.9-2.4); AST(SGOT) 22 U/L (15-37); Alanine Aminotransfer ALT/SGPT 27 U/L (13-56); Alkaline Phosphatase 46 U/L (45-117); Anion Gap 4 (5-15); BUN 18 mg/dL (7-18); BUN/Creat Ratio 21.5 RATIO (10-20); Calcium,Total 9.7 mg/dL (8.5-10.1); Chloride 107 mmol/L (98-107); Creatinine, Serum 0.84 mg/dL (0.55-1.02); EST Glomerular Filtration Rate 72 mL/min (>60); Est Glom Filt Rate - Afr Amer 87 mL/min (>60); Globulin 3.1 g/dL (2.2-4.2); Glucose 97 mg/dL (74-106); Potassium 3.7 mmol/L (3.5-5.1); Protein, Total 7.1 g/dL (6.4-8.2); Sodium Level 141 mmol/L (136-145); Thyroid Stim Hormone (TSH) 1.68 uIU/mL (0.358-3.74)
== END | disposition home or self-care (01) ==
LOC: LAB 11:33
PROVIDERS: PCP Nurse Practitioner Family; Referring Provider Internal Medicine Cardiovascular Disease; Visit Provider Internal Medicine Cardiovascular Disease
DX: E78.00 Pure hypercholesterolemia, unspecified (principal); R94.31 Abnormal electrocardiogram [ECG] [EKG]; R93.1 Abnormal findings on diagnostic imaging of heart and coronary circulation
CPT/HCPCS: 36415; 80053; 84443

== ENCOUNTER → 2023-01-15 | Outpatient (CLI) | payer MEDICARE, BC, SELFPAY | END | disposition home or self-care (01) | LOC: PSN 08:52 | PROVIDERS: PCP Nurse Practitioner Family; Visit Provider Internal Medicine Cardiovascular Disease | DX: R94.31 Abnormal electrocardiogram [ECG] [EKG] (principal); R03.0 Elevated blood-pressure reading, without diagnosis of hypertension | CPT/HCPCS: 93225; 93226 ==

== ENCOUNTER 2023-06-27 10:26 | Outpatient (CLI) | payer MEDICARE, BC, SELFPAY ==
[2023-06-27] MEDS: DENOSUMAB 60 MG/ML SC (10:45)
[2023-06-27 10:49] VITALS: BP 143/75; PULSE 83; RESP 16; O2SAT 97; BMI 18.8
== END 2023-06-27 10:27 | disposition home or self-care (01) ==
LOC: MEDOUTP 10:26
PROVIDERS: PCP Nurse Practitioner Family; Referring Provider Internal Medicine; Visit Provider Internal Medicine
DX: M81.0 Age-related osteoporosis without current pathological fracture (principal)
CPT/HCPCS: 96372; J0897

== ENCOUNTER → 2023-08-26 | Outpatient (CLI) | payer MEDICARE, BC, SELFPAY ==
--- NOTE | 2023-08-26 09:51 | BI_ITS ---
MAMMOGRAPHY - BILATERAL SCREENING REASON FOR EXAM: Female, 68 years old. Routine annual screening examination. PERTINENT HISTORY: Non-contributory. TECHNIQUE: Digital bilateral breast jewels (3D mammographic acquisition) in the CC and MLO projections. 2-D mediolateral oblique (MLO) and craniocaudad (CC) views of both breasts were obtained. CAD: Full Field Digital Mammography with Computer Added Detection was performed. COMPARISON: Comparison is made with prior examination of August 22, 2022 and August 21, 2021. FINDINGS: Breast Composition: The breasts are heterogeneously dense, which may obscure small masses. There are no dominant masses or suspicious calcifications. No other significant abnormalities are identified. There has been no significant change since the prior study. BI/SCRN MAMM (CAD)W/JEWELS BILAT IMPRESSION: Stable bilateral screening mammogram. Yearly follow-up mammogram recommended. (A) ASSESSMENT CATEGORY: BIRADS Category 1: Negative. A letter regarding these results will be sent to the patient by the facility within 30 days. Approximately 10% of breast cancers are not detected by mammography. A normal mammogram should not delay biopsy of a clinically suspicious abnormality. [id number] Electronically Signed: Honorio Ybarra MD at 11:13 EDT ,
--- NOTE | 2023-08-26 09:57 | BD_ITS ---
STUDY: DUAL ENERGY X-RAY ABSORPTIOMETRY / DXA REASON FOR EXAM: Female, 68 years old. 733.00OsteoporosisBONE DENSITY REASON FOR EXAM -- Not due until August TECHNIQUE: Bone Mineral Density (BMD) measurements of lumbar spine and bilateral hips were obtained. COMPARISON: Comparison is made with prior examination August 21, 2021. FINDINGS: Lumbar Spine (L1-L4): g/cm2 (0.840) / T-score (-1.8) / Z-score (0.1) Findings are suggestive of osteopenia with a moderate fracture risk. Left Femur Total: g/cm2 (0.615) / T-score (-2.7) / Z-score (-1.3) Left Femoral Neck: g/cm2 (0.519) / T-score (-3.0) / Z-score (-1.3) Right Femur Total: g/cm2 (0.629) / T-score (-2.6) / Z-score (-1.2) Right Femoral Neck: g/cm2 (0.577) / T-score (-2.5) / Z-score (-0.8) The T-Scores on the most recent prior examination were: Lumbar Spine (L1-L4): There has been improvement of bone density since the previous examination. Left Femur Total: which represents an improvement of 6.4%. Right Femur Total: which represents a worsening of -1%. BD/Dexa Bone Density Study IMPRESSION: The patient is considered osteoporotic as outlined below according to World [place] Organization (WHO) criteria with a high fracture risk. There has been improvement of bone density since the previous examination. Reference Information: The T-score is the number of standard deviations above or below the standard which is normal for young adults at their peak bone mineral density. The World Health Organization (WHO) interprets the T-scores as follows: Above -1 Normal bone density Between -1 and -2.5 Osteopenia Equal to / or below -2.5 Osteoporosis As a practical clinical guideline, osteopenia may be graded as follows: Mild -1 through -1.5 Moderate -1.6 through -2.0 Severe -2.1 through -2.4 The Z-score is the number of standard deviations above or below age-matched controls. A Z-score of less than -1.5 would be considered abnormal. References: 1. NIH Osteoporosis and Related Bone Diseases www osteo.org 2. International Society for Clinical Densitometry www iscd.org 3. National Osteoporosis Foundation www nof.org Electronically Signed: Honorio Ybarra MD at 8:47 EDT ,
== END | disposition home or self-care (01) ==
LOC: OPBD 09:50
PROVIDERS: PCP Nurse Practitioner Family; Referring Provider Nurse Practitioner Family; Visit Provider Nurse Practitioner Family
DX: M81.0 Age-related osteoporosis without current pathological fracture (principal); Z12.31 Encounter for screening mammogram for malignant neoplasm of breast
CPT/HCPCS: 77063; 77067; 77080

== ENCOUNTER 2023-12-26 11:33 | Outpatient (CLI) | payer MEDICARE, BC, SELFPAY ==
[2023-12-26 11:34] VITALS: BP 186/96; PULSE 79; RESP 16; TEMP 36.3; O2SAT 98; BMI 19.2
[2023-12-26 11:50] VITALS: BP 158/85
[2023-12-26] MEDS: DENOSUMAB 60 MG/ML SC (11:53)
== END 2023-12-26 11:34 | disposition home or self-care (01) ==
LOC: MEDOUTP 11:33
PROVIDERS: PCP Nurse Practitioner Family; Referring Provider Internal Medicine; Visit Provider Internal Medicine
DX: M81.0 Age-related osteoporosis without current pathological fracture (principal)
CPT/HCPCS: 96372; J0897

== ENCOUNTER 2024-01-06 11:00 | Outpatient (RCR) | payer MEDICARE, BC, SELFPAY ==
--- NOTE | 2023-12-12 14:14 | HP.PTEVAL ---
Patient's Visit Information Visit Information Visit Information: SAUD SALAMANCA is a 68 year old F referred to Physical Therapy by RUBI Jenkins with a diagnosis of R hip pain/ MS. Date of Evaluation: 12/12/23 Physical Therapist: James Manuel, PT, ATC Visit Plan Frequency: 2-3x /Week Duration: 4-6 Weeks Plan: R LE stretching, R LE strengthening, balance and proprio, core stab ex's, nustep, and HEP Subjective Subjective: Pt reports she was Dx'd with MS 26 years ago. Pt reports as a result of that Dx, she doesn't walk normally and believes this may be what has caused her to have R hip pain. Pt also notes she gets R knee pain on occasion. Pt notes she has R foot drop, and as a result of that she has an altered gait pattern. Pt reports she doesn't have any pain while at rest, but notes she gets increased pain with ambulation. Pt reports she has a couple stairs to get into her house, which she has to negotiate one step at a time and use a handrail. Pt reports she also has really compromised balance at this time, and is limited from some activities as a result. Pt also notes her LB will become sore while performing house chores. Pt reports she has good sensation in her LE s. Pt reports she had x-rays last year which revealed no significant findings. R hip pain is currently 2/10 while sitting here in the clinic, but increases to 9/10 at worst. Pt reports occassional sleep difficulty secondary to pain. Pain R hip pain: Pain Intensity (Out of 10): 2 Pain Intensity Range: 9 Objective Objective: Neuro: B LE sensation is WNL to light touch. B patellar reflex= 2/3 Palpation: Pt has no pain with palpation ROM: Pt is moderately limited with all planes on her R LE. L LE is WFL MMT: L hip flex= 18, abd= 23, add= 31: L knee flex= 21, ext= 42; R hip flex= 6, abd= 16, add= 15; R knee flex= 6, ext= 28 #F FGA: - significant risk for falling at this time Balance/Special Test Scores Functional Gait Assessment Score: 12 % Disability: 60.0000 Lower Extremity Functional Score: 25 Goals Goal 1:: Decrease R hip pain x 50% to aid with sleep Goal Time Frame: 4-6 Weeks Goal 2:: Increase R LE strength x 5-10 pounds force to aid with stair negotiation Goal Time Frame: 4-6 Weeks Goal 3:: Improve FGA x 5 points to aid with preventing future falls. Goal Time Frame: 4-6 Weeks Goal 4:: I with HEP Goal Time Frame: 4-6 Weeks Rehabilitation Potential Physical Therapy Diagnosis: Pt has R LE weakness, limited ROM, and difficulty with ambulation secondary to MS Rehabilitation Potential: Good Anticipated Interventions Patient/Client Instruction: Educate patient on: Condition and Plan of Care For the Purpose of:: To improve self management Therapeutic Exercise to Include: Strength training, Endurance training, Balance training, Flexibilty training, Gait and locomotor training and Dynamic Lumbar Stabilization For the Purpose of:: To decrease pain, To increase ROM and To improve muscle performance and motor function Text: Thank you for the opportunity to evaluate your patient. For Medicare and Medicare HMO plans, please review the plan of care and approve it. It will need to be FAXED BACK to us at [phone] for Medicare purposes. For Medicare only, by signing this I certify the plan of care. Please let me know if there are questions or concerns regarding this plan of care. Physician Signature: Date:
--- NOTE | 2024-01-08 13:05 | HP.PTDCSUM_ITS ---
Discharge Summary D/C summary: It has been my pleasure to treat SAUD SALAMANCA referred by Kamala Arellano NP- C, with the diagnosis of R hip pain/ MS for a total of 9 visit(s). Discharge Date: Please see the following information for a summary of their discharge status. Subjective Subjective: Pt reports she no longer has pain. I can do the stuff I do here at home Pain R hip pain: Pain Intensity (Out of 10): 0 Overall Improvement % Improvement: 60 Objective Objective/Function: 0/10 R hip pain today or in the past week. R LE MMT: flex= 8, abd= 24, add= 20 #F FGA: Pt is I with HEP Goals Goal 1:: Decrease R hip pain x 50% to aid with sleep Goal Progress: Goal Met Goal 2:: Increase R LE strength x 5-10 pounds force to aid with stair negotiation Goal Progress: Goal Met Goal 3:: Improve FGA x 5 points to aid with preventing future falls. Goal Progress: Goal Met Goal 4:: I with HEP Goal Progress: Goal Met Plan Plan: Discharge to HEP D/C Information d/c sentence: If there are questions or concerns regarding this patient's physical therapy, please feel free to call me at [phone]. Thank you for the referral of this patient. Sincerely, James Manuel, PT, ATC Balance/Gait/Functional tests Balance/Special Test Scores Functional Gait Assessment Score: 21 % Disability: 30.0000 Lower Extremity Functional Score: 30 TUG Test Time Seconds: 11.96 Tug Test: <20 sec.=mostly independent 30 Second Chair Rise Test Seconds: 15 Improvement % Improvement: 60
== END 2024-01-06 19:00 | disposition home or self-care (01) ==
LOC: PT 11:00
PROVIDERS: PCP Nurse Practitioner Family; Referring Provider Nurse Practitioner Family; Visit Provider Nurse Practitioner Family
DX: M25.551 Pain in right hip (principal)
CPT/HCPCS: 97110; 97161

== ENCOUNTER 2024-06-25 10:50 | Outpatient (CLI) | payer MEDICARE, BC, SELFPAY ==
[2024-06-25 11:00] VITALS: BP 155/74; PULSE 73; RESP 16; TEMP 36.1; O2SAT 94
[2024-06-25] MEDS: DENOSUMAB 60 MG/ML SC (11:10)
== END 2024-06-25 23:59 | disposition home or self-care (01) ==
LOC: MEDOUTP 10:51
PROVIDERS: PCP Nurse Practitioner Family; Referring Provider Internal Medicine; Visit Provider Internal Medicine
DX: M81.0 Age-related osteoporosis without current pathological fracture (principal)
CPT/HCPCS: 96372; J0897

== ENCOUNTER → 2024-08-27 | Outpatient (CLI) | payer MEDICARE, BC, SELFPAY ==
--- NOTE | 2024-08-27 13:37 | BI_ITS ---
MAMMOGRAPHY - BILATERAL SCREENING REASON FOR EXAM: Female, 69 years old. Routine annual screening examination. PERTINENT HISTORY: Non-contributory. TECHNIQUE: Digital bilateral breast jewels (3D mammographic acquisition) in the CC and MLO projections. 2-D mediolateral oblique (MLO) and craniocaudad (CC) views of both breasts were obtained. CAD: Full Field Digital Mammography with Computer Added Detection was performed. COMPARISON: Comparison is made with prior study August 26, 2023 and August 22, 2022. FINDINGS: Breast Composition: The breasts are heterogeneously dense, which may obscure small masses. There are no dominant masses or suspicious calcifications. No other significant abnormalities are identified. There has been no significant change since the prior study. BI/SCRN MAMM (CAD)W/JEWELS BILAT IMPRESSION: Stable bilateral screening mammogram. Yearly follow-up mammogram recommended. (A) ASSESSMENT CATEGORY: BIRADS Category 1: Negative. A letter regarding these results will be sent to the patient by the facility within 30 days. Approximately 10% of breast cancers are not detected by mammography. A normal mammogram should not delay biopsy of a clinically suspicious abnormality. [id number] Electronically Signed: Honorio Ybarra MD at 14:17 EDT ,
== END | disposition home or self-care (01) ==
LOC: OPBI 13:37
PROVIDERS: PCP Nurse Practitioner Family; Referring Provider Nurse Practitioner Family; Visit Provider Nurse Practitioner Family
DX: Z12.31 Encounter for screening mammogram for malignant neoplasm of breast (principal)
CPT/HCPCS: 77063; 77067

== ENCOUNTER → 2024-10-05 | Outpatient (CLI) | payer MEDICARE, BC, SELFPAY ==
[2024-10-05 10:12] LABS: Absolute Lymphocyte Count 1.33 X10^3/uL (0.83-4.51); Absolute Neutrophil Count 5.1 X10^3/uL (2.0-7.7); Basophil# 0.05 X10^3/uL; Basophil% 0.6 % (0-1); Eosinophil# 0.05 X10^3/uL; Eosinophils% 0.6 % (0-5); Hemoglobin 13.3 g/dL (12.0-15.0); Lymphocyte # 1.33 X10^3/ul (0.83-4.51); Lymphocyte % 16.9 % (19-41); Mean Corp Hgb Conc 31.7 g/dL (32-36); Mean Corpuscular Hgb 29.8 pg (27.0-32.0); Mean Corpuscular Volume 94.2 fL (81-99); Mean Platelet Vol. 11.9 fl (6.2-12.0); Monocyte# 1.28 X10^3/uL; Monocyte% 16.3 % (0-10); NRBC Flagged by Analyzer 0 % (0-5); Neutrophil # 5.09 X10^3/uL (2.7-7.7); Platelet Count 289 K/mm3 (150-450); RBC Distribution Width CV 12.8 % (11.6-14.6); Red Blood Count 4.46 M/mm3 (4.2-5.4); White Blood Count 7.9 K/mm3 (4.4-11.0)
[2024-10-05 10:23] LABS: Vitamin B12 1056 pg/mL (211-911); Vitamin D,25 Hydroxy 98.3 ng/mL
[2024-10-05 10:38] LABS: Erythrocyte Sedimentation Rate 8 mm/hr (0-30)
[2024-10-05 10:42] LABS: Color, Urine Yellow (Yellow); Glucose, Dipstick Normal (Normal); Ketone-Dipstick 50 mg/dl (Negative); Leukocyte Esterase-Dipstick 100 /ul (Negative); Nitrite-Dipstick Positive (Negative); Occult Blood-Urine 25 /ul (Negative); Protein-Dipstick 30 mg/dl (Negative); Urine Bilirubin Dipstick Negative (Negative); Urine Clarity Sl. Cloudy (Clear); Urine Urobilinogen Normal (Normal)
[2024-10-05 11:03] LABS: ALB/GLOB Ratio 1.6 RATIO (0.9-2.4); AST(SGOT) 21 U/L (15-37); Alanine Aminotransfer ALT/SGPT 30 U/L (13-56); Albumin, Serum 4.1 g/dL (3.2-5.0); Alkaline Phosphatase 52 U/L (45-117); Anion Gap 5 (5-15); BUN 10 mg/dL (7-18); BUN/Creat Ratio 14.9 RATIO (10-20); Calcium,Total 9.3 mg/dL (8.5-10.1); Chloride 109 mmol/L (98-107); Cholesterol 215 mg/dL (200); Creatinine, Serum 0.67 mg/dL (0.55-1.02); EST Glomerular Filtration Rate 93 mL/min (>60); Est Glom Filt Rate - Afr Amer 113 mL/min (>60); Globulin 2.6 g/dL (2.2-4.2); Glucose 96 mg/dL (74-106); High Density Lipoprotein 61 mg/dL; Protein, Total 6.7 g/dL (6.4-8.2); Sodium Level 144 mmol/L (136-145); Triglycerides 141 mg/dL; Very Low Density Lipoprotein 28 mg/dL (5-40)
== END | disposition home or self-care (01) ==
LOC: LABSPEC 09:46
PROVIDERS: PCP Nurse Practitioner Family; Referring Provider Nurse Practitioner Family; Visit Provider Nurse Practitioner Family
DX: E78.00 Pure hypercholesterolemia, unspecified (principal); G35 Multiple sclerosis; I27.20 Pulmonary hypertension, unspecified; E55.9 Vitamin D deficiency, unspecified
CPT/HCPCS: 80053; 80061; 81002; 82306; 82607; 82746; 84443; 85025; 85652; 86140

== ENCOUNTER → 2024-10-13 | Outpatient (CLI) | payer MEDICARE, BC, SELFPAY ==
--- NOTE | 2024-10-13 11:58 | CT_ITS ---
STUDY: CT ABDOMEN AND PELVIS WITH CONTRAST REASON FOR EXAM: Female, 69 years old. Abdominal pain RADIATION DOSAGE (If Supplied By Facility): CTDIvol = ( 6.40 ) mGy, DLP = ( 281.37 ) mGycm TECHNIQUE: Transaxial images were obtained from the dome of the diaphragm to the symphysis pubis with oral contrast. Oral and amp;amp; IV Gastrografin and amp;amp; 70 ML ISOVUE 300 was administered. Sagittal and coronal images were reconstructed. Individualized dose optimization techniques were used for this CT. COMPARISON: Comparison is made with prior study January 09, 2020. FINDINGS: The visualized lung bases are unremarkable. The visualized portions of the heart are within normal limits. Normal liver. Normal gallbladder and extrahepatic biliary system. Normal spleen. Normal pancreas. Normal bilateral adrenal glands. Normal right kidney. Normal left kidney. There is a small hiatal hernia. Normal small intestine. There are scattered colonic diverticula consistent with diverticulosis. The appendix is visualized and appears normal. There is diffuse atherosclerotic calcification of the abdominal aorta, without a demonstrated aneurysm. Normal inferior vena cava. Normal retroperitoneum. Normal urinary bladder. There is absence of the uterus consistent with a prior hysterectomy. Normal abdominal wall. There are diffuse degenerative changes of the visualized lumbar spine. Levoscoliosis. CT/Abdomen/Pelvis WITH Contrast IMPRESSION: Scattered sigmoid diverticula. No acute abnormality is seen. Electronically Signed: Honorio Ybarra MD at 14:28 EST ,
[2024-10-13 14:59] LABS: Absolute Lymphocyte Count 0.74 X10^3/uL (0.83-4.51); Absolute Neutrophil Count 10.1 X10^3/uL (2.0-7.7); Basophil# 0.03 X10^3/uL; Basophil% 0.3 % (0-1); Hemoglobin 13.2 g/dL (12.0-15.0); Lymphocyte # 0.74 X10^3/ul (0.83-4.51); Lymphocyte % 6.3 % (19-41); Mean Corp Hgb Conc 32.2 g/dL (32-36); Mean Corpuscular Hgb 29.4 pg (27.0-32.0); Mean Corpuscular Volume 91.3 fL (81-99); Mean Platelet Vol. 10.2 fl (6.2-12.0); Monocyte# 0.86 X10^3/uL; Monocyte% 7.3 % (0-10); NRBC Flagged by Analyzer 0 % (0-5); Neutrophil # 10.08 X10^3/uL (2.7-7.7); Neutrophil % 85.6 % (47-70); Platelet Count 322 K/mm3 (150-450); RBC Distribution Width CV 13.2 % (11.6-14.6); RBC Distribution Width SD 43.8 fl (35.1-43.9); Red Blood Count 4.49 M/mm3 (4.2-5.4); White Blood Count 11.8 K/mm3 (4.4-11.0)
[2024-10-13 15:19] LABS: Erythrocyte Sedimentation Rate 12 mm/hr (0-30)
[2024-10-13 15:25] LABS: ALB/GLOB Ratio 1.2 RATIO (0.9-2.4); AST(SGOT) 16 U/L (15-37); Alanine Aminotransfer ALT/SGPT 19 U/L (13-56); Albumin, Serum 3.9 g/dL (3.2-5.0); Alkaline Phosphatase 56 U/L (45-117); Anion Gap 6 (5-15); BUN 11 mg/dL (7-18); BUN/Creat Ratio 15.9 RATIO (10-20); Calcium,Total 8.8 mg/dL (8.5-10.1); Chloride 104 mmol/L (98-107); Creatinine, Serum 0.69 mg/dL (0.55-1.02); EST Glomerular Filtration Rate 90 mL/min (>60); Est Glom Filt Rate - Afr Amer 109 mL/min (>60); Globulin 3.2 g/dL (2.2-4.2); Glucose 116 mg/dL (74-106); Potassium 3.4 mmol/L (3.5-5.1); Protein, Total 7.1 g/dL (6.4-8.2); Sodium Level 137 mmol/L (136-145)
== END | disposition home or self-care (01) ==
PROVIDERS: PCP Nurse Practitioner Family; Referring Provider Nurse Practitioner Family; Visit Provider Nurse Practitioner Family
DX: R10.9 Unspecified abdominal pain (principal)
CPT/HCPCS: 36415; 74177; 80053; 85025; 85652; 86140; Q9967

== ENCOUNTER 2024-12-24 10:51 | Outpatient (CLI) | payer MEDICARE, BC, SELFPAY ==
[2024-12-24 11:06] VITALS: BP 153/92; PULSE 72; RESP 16; TEMP 35.9; O2SAT 96; BMI 19.2
[2024-12-24] MEDS: DENOSUMAB 60 MG/ML SC (11:07)
== END 2024-12-24 23:59 | disposition home or self-care (01) ==
LOC: MEDOUTP 10:53
PROVIDERS: PCP Nurse Practitioner Family; Referring Provider Nurse Practitioner Family; Visit Provider Nurse Practitioner Family
DX: M81.0 Age-related osteoporosis without current pathological fracture (principal)
CPT/HCPCS: 96372; J0897

== ENCOUNTER 2025-06-24 11:01 | Outpatient (CLI) | payer MEDICARE, BC, SELFPAY ==
[2025-06-24 11:15] VITALS: BP 143/78; PULSE 64; RESP 16; TEMP 36.4; O2SAT 97; BMI 19.3
[2025-06-24] MEDS: DENOSUMAB 60 MG/ML SC (11:17)
== END 2025-06-24 23:59 | disposition home or self-care (01) ==
LOC: MEDOUTP 11:01
PROVIDERS: PCP Nurse Practitioner Family; Referring Provider Internal Medicine; Visit Provider Internal Medicine
DX: M81.0 Age-related osteoporosis without current pathological fracture (principal)
CPT/HCPCS: 96372; J0897

== ENCOUNTER → 2025-10-07 | Outpatient (CLI) | payer MEDICARE, BC, SELFPAY ==
--- NOTE | 2025-10-07 11:46 | BI_ITS ---
EXAM: SCRN MAMM (CAD)W/JEWELS BILAT DATE: 10/07/2025 CLINICAL HISTORY: F, Age 70 y/o , SCREENING TECHNIQUE: Procedure Code: [id number] Modality: MG Procedure: SCRN MAMM (CAD)W/JEWELS BILAT COMPARISON: Prior exam(s) dated 08/27/2024, 08/26/2023, 08/22/2022. FINDINGS: TISSUE DENSITY: The breasts are heterogeneously dense, which may obscure small masses. Bilateral Breast Mammographic Findings: No significant masses, calcifications or other abnormalities are identified. BI/SCRN MAMM (CAD)W/JEWELS BILAT IMPRESSION: There is no mammographic evidence of malignancy. OVERALL FINAL ASSESSMENT BI-RADS 1: NEGATIVE. RECOMMENDATION: Routine annual follow-up in 1 Year Additional Recommendation none A letter with findings and recommendations will be mailed to the patient. Reading Location: [id number]
== END | disposition home or self-care (01) ==
LOC: OPBI 11:44
PROVIDERS: PCP Nurse Practitioner Family; Referring Provider Nurse Practitioner Family; Visit Provider Nurse Practitioner Family
DX: Z12.31 Encounter for screening mammogram for malignant neoplasm of breast (principal)
CPT/HCPCS: 77063; 77067